=== PATIENT | female | born 1960 | race African-American/Black ===

== ENCOUNTER 2022-11-10 12:58 | Outpatient (OUT) | payer OTHER, SELFPAY ==
--- NOTE | 2022-11-10 13:22 | MM_ITS ---
Patient: ISABELA JACINTO Exam Date: 11/10/2022 : 1960 Gender:F Ordering : DR Fred Oliveira D.O. Admission #: [id number] Family : Order #: [id number] CLICK HERE TO VIEW EXAM RADIOLOGY REPORT PROCEDURE: MM TOMOSYNTHESIS SCREENING BI COMPARISON: MG MAMM SCREEN 3D CORY CAD, 10/25/2021. MG MAMM LT DIAG FU, 11/01/2021. INDICATIONS: Screening mammogram Z12.31 Calculator Name NCI Breast Cancer Risk Assessment Tool 5 Year Breast Cancer Risk 1.10% Lifetime Breast Cancer Risk 5.30% Personal Breast Cancer No Personal Ovarian Cancer No Treatments None Family Cancers Father with colon cancer at age ~71. LOCATION: [facility] BREAST COMPOSITION: Extremely dense, which lowers the sensitivity of mammography. FINDINGS: DIAGNOSTIC CATEGORY 2--BENIGN FINDING. NO CHANGE FROM COMPARISON. Scattered benign-appearing calcifications are present. Scattered benign-appearing lymph nodes are present. RIGHT BREAST: No significant suspicious finding. LEFT BREAST: No significant suspicious finding. RECOMMENDATIONS: ROUTINE MAMMOGRAM AND CLINICAL EVALUATION IN 12 MONTHS. PLEASE NOTE: A NORMAL MAMMOGRAM DOES NOT EXCLUDE THE POSSIBILITY OF BREAST CANCER. A CLINICALLY SUSPICIOUS PALPABLE LUMP SHOULD BE BIOPSIED. Dictated by: Dayron Segura MD on 11/11/2022 at 07:20 Approved by: Dayron Segura MD on 11/11/2022 at 07:22
== END 2022-11-10 12:59 | disposition home or self-care (01) ==
PROVIDERS: PCP Internal Medicine; Visit Provider Internal Medicine
DX: Z12.31 Encounter for screening mammogram for malignant neoplasm of breast (principal); Z80.0 Family history of malignant neoplasm of digestive organs
CPT/HCPCS: 77063; 77067

== ENCOUNTER 2023-02-06 12:56 | Outpatient (OUT) | payer OTHER, SELFPAY ==
--- NOTE | 2023-02-06 12:59 | CA_ITS ---
[facility] Test Date: 2023-02-16 Pat Name: ISABELA JACINTO Department: Room: - Gender: Female Mds Manager: : 1960 Requested By: [id number] Order Number: [id number] Reading MD: SAURAV BURNETTE Interpretive Statements Predominant rhythm is sinus w/ average rate of 84 bpm Tachycardia - max rate of 181 bpm - 38 episodes of PSVT w/ longest duration of 371 beats - longest episode of 23min 59sec with rates of 118-133 bpm Bradycardia - min rate of 53 bpm - longest episode of 1min 6sec with rates 56-59 bpm VEntricular ectopy - 50 total (<1%) - 33 PVC - 3 bigeminy - 2 couplets NSVT - 1 episode of 8 beat duration Patient triggered events: 2 - associated with NSR Impression: Predominant rhythm is sinus w/ average rate of 84 bpm Fastest rate of 188 bpm and slowest rate of 53 bpm 33 PVC, 3 bigeminy, 2 couplets 1 NSVT of 8 beat duration No blocks or pauses No atrial fibrillation/flutter Electronically Signed On 02-17-2023 7:24:22 EDT by SAURAV BURNETTE
== END 2023-02-06 12:57 | disposition home or self-care (01) ==
LOC: CARD 12:57
PROVIDERS: PCP Internal Medicine; Visit Provider Nurse Practitioner Family
DX: R00.2 Palpitations (principal); R42 Dizziness and giddiness; Z86.79 Personal history of other diseases of the circulatory system
CPT/HCPCS: 93242

== ENCOUNTER 2023-04-04 13:02 | Outpatient (OUT) | payer OTHER, SELFPAY ==
--- NOTE | 2023-04-04 14:11 | CA_ITS ---
Patient Name: ISABELA JACINTO MR#: [id number] : 1960 Exam Date: 04/04/2023 Ordering Doctor: JEREMIAS MARTINEZ ECHOCARDIOGRAM REPORT PROCEDURE: CA ECHO DOPPLER COMPLETE INDICATIONS: Paroxysmal atrial fibrillation, Palpitations COMPARISON: None. DESCRIPTION: COMPLETE ECHOCARDIOGRAM Real-time transthoracic echocardiography with 2D, M-mode, spectral and color flow Doppler performed. QUALITY: Technical quality was good. LEFT VENTRICLE: Normal chamber size. Thickened septal wall. Global left ventricular systolic function is normal. LV EF: Calculated left ventricular ejection fraction is 62%. DIASTOLIC: Normal diastolic function. ATRIAL SEPTUM: LEFT ATRIUM: Normal chamber size. RIGHT ATRIUM: Mild dilatation. RIGHT VENTRICLE: Normal chamber size. Normal right ventricular systolic function. TRICUSPID VALVE: Normal mobility and thickness. No stenosis with mild regurgitation. No evidence of pulmonary hypertension. RVSP 34 mmHg MITRAL VALVE: Normal mobility and thickness. No evidence of mitral valve stenosis. Trivial mitral regurgitation. AORTIC VALVE: Normal trileaflet appearance. Mildly calcified aortic valve. Normal leaflet mobility. No evidence of aortic valve stenosis. No aortic regurgitation. AORTIC ROOT: Normal diameter and appearance. PULMONIC VALVE: Normal thickness and mobility. No stenosis. Trivial regurgitation. PERICARDIUM: Trivial pericardial effusion. IVC: Collapses with inspirations. Normal Size. PLEURA: CONCLUSION: 1. Normal left ventricular systolic function. Estimated LVEF is 60 to 65%. 2. Normal right ventricular size and systolic function. 3. Normal diastolic function. 4. No significant valvular dysfunction. 5. Normal right-sided pressures. 6. Trivial pericardial effusion. Adult Echocardiography Procedure Report Left Ventricle LVEDD (3.7 - 5.6 cm): 3.45 cm LVESD (2.2 - 4.0 cm): 2.24 cm LVIVS thickness (0.6 - 1.2 cm): 1.38 cm LVPW thickness (0.5 - 1.0 cm): 1.09 cm e': 0.09 m/s E - e': 7.20 LVOT Max Gradient: 3.10 mm[Hg] LVOT Area (cm2): 0.88 m/s Peak Velocity (LVOT): 0.88 m/s Mean Velocity (LVOT): 0.57 m/s LVOT Diameter 1.72 cm Left Ventricular Ejection Fraction: 61.89 % Left Atrium LA Volume Index (2D A2C): 33.80 ml/m2 Left Atrium Systolic Dimension: 3.32 cm Mitral Valve MV E to A Ratio: 0.97, 0.97 Mitral Valve A-Wave Peak Velocity: 0.66 m/s Mitral Valve E-Wave Peak Velocity: 0.64 m/s Right Ventricle RV Internal Diastolic Dimension: 3.26 cm Aorta AO Root Diam: 2.30 cm Ascending Ao Diam: 2.67 cm Aortic Valve AoV Area (Peak Alberto): 1.57 cm2, 1.67 cm2 AoV Area (VTI): 1.48 cm2, 1.52 cm2 Peak Velocity(Antegrade Flow): 1.23 m/s, 1.37 m/s Peak Gradient(Antegrade Flow): 6.00 mm[Hg], 7.51 mm[Hg] Mean Velocity(Antegrade Flow): 0.87 m/s, 0.94 m/s Mean Gradient(Antegrade Flow): 3.44 mm[Hg], 3.97 mm[Hg] Velocity Time Integral: 27.24 cm, 28.78 cm Tricuspid Valve Peak Velocity (Regurgitant Flow): 2.08 m/s, 2.36 m/s, 2.80 m/s Pulmonic Valve Mean Gradient: 2.39 mm[Hg], 2.80 mm[Hg], 2.17 mm[Hg] Mean Velocity: 0.71 m/s, 0.80 m/s, 0.68 m/s Peak Velocity: 1.15 m/s Peak Gradient: 5.06 mm[Hg], 5.59 mm[Hg], 5.32 mm[Hg] Right Atrium Right Atrium Systolic Pressure: 41.26 ml, 41.26 ml Dictated by: Marcus Winter M.D. on 04/04/2023 at 16:14 Approved by: Marcus Winter M.D. on 04/04/2023 at 16:18
== END 2023-04-04 13:03 | disposition home or self-care (01) ==
LOC: CARD 13:02
PROVIDERS: PCP Internal Medicine; Visit Provider Nurse Practitioner
DX: M34.81 Systemic sclerosis with lung involvement (principal); I48.0 Paroxysmal atrial fibrillation
CPT/HCPCS: 71046; 93306

== ENCOUNTER 2023-04-04 14:01 | Outpatient (OUT) | payer OTHER, SELFPAY ==
--- NOTE | 2023-04-04 14:11 | XR_ITS ---
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 Slight prominence of interstitial markings are seen diffusely throughout the lungs, with more prominent interstitial changes seen at the lung bases. All of these findings remain unchanged and presumably chronic in nature. A new infiltrate, effusion or pneumothorax is not identified. The osseous structures are grossly intact. XR/XR chest 2V IMPRESSION: There is no clear evidence of an acute infiltrate or cardiac decompensation. Some chronic changes are present, particularly at the lung bases. The overall appearance of the chest has not changed significantly. Electronically authenticated by: ALLIE TRAN Date: 04/04/2023 14:29
== END 2023-04-04 14:02 | disposition home or self-care (01) ==
LOC: RAD 14:04
PROVIDERS: PCP Internal Medicine; Visit Provider Internal Medicine
DX: M34.81 Systemic sclerosis with lung involvement (principal)
CPT/HCPCS: 71046

== ENCOUNTER 2023-05-06 09:33 | Outpatient (OUT) | payer OTHER, SELFPAY ==
[2023-05-06 09:43] LABS: Basophils Absolute Auto 0.1 10^3/uL (0.0-0.1); Basophils Percent Auto 0.9 % (0.2-2.0); Eosinophils Absolute Auto 0.1 10^3/uL (0.0-0.7); Eosinophils Percent Auto 1.4 % (0.9-7.0); Hematocrit 36.8 % (36.0-48.0); Hemoglobin 11.3 g/dL (12.0-16.0); Immature Granulocytes Abs Auto 0.01 10^3/uL (0.00-0.03); Immature Granulocytes Pct Auto 0.2 % (0.0-0.5); Lymphocytes Absolute Auto 1.9 10^3/uL (1.2-3.8); Lymphocytes Percent Auto 32.9 % (20.5-60.0); Mean Corpuscular HGB Conc 30.7 g/dL (29.9-35.2); Mean Corpuscular Hemoglobin 26.4 pg (26.7-34.0); Mean Platelet Volume 9.9 fL (9.5-13.5); Monocytes Absolute Auto 0.6 10^3/uL (0.3-0.8); Monocytes Percent Auto 11.1 % (1.7-12.0); Neutrophils Absolute Auto 3.1 10^3/uL (1.4-6.5); Neutrophils Percent Auto 53.5 % (43.0-75.0); Platelet Count 193 10^3/uL (150-450); Red Blood Count 4.28 10^6/uL (4.20-5.40); Red Cell Distribution Width 13.9 % (11.0-15.0); White Blood Count 5.8 10^3/uL (4.0-11.0)
[2023-05-06 10:04] LABS: Estimated Average Glucose 126 mg/dL
[2023-05-06 10:08] LABS: Alanine Aminotransferase 19 U/L (14-59); Albumin Globulin Ratio 0.9; Albumin Level 3.9 g/dL (3.4-5.0); Alkaline Phosphatase 82 U/L (46-116); Anion Gap 13.2; Aspartate Amino Transferase 16 U/L (15-37); BUN Creatinine Ratio 14.4; Bilirubin Total 0.4 mg/dL (0.2-1.0); Calcium 9.4 mg/dL (8.5-10.1); Carbon Dioxide 30.7 mmol/L (21.0-32.0); Chloride 101 mmol/L (98-107); Chol HDL Ratio 2.4; Cholesterol 221 mg/dL (<=200); Estimated GFR (African America >60 (>=60); Estimated GFR (Non-African Ame 58 (>=60); Globulin 4.4 g/dL; Glucose 88 mg/dL (74-106); HDL Cholesterol 92 mg/dL (40-60); Potassium 4.9 mmol/L (3.5-5.1); Sodium 140 mmol/L (136-145); Thyroid Stimulating Hormone 2.081 uIU/mL (0.358-3.740); Total Protein 8.3 g/dL (6.4-8.2); Triglycerides 41 mg/dL (<=150); VLDL CHOLESTEROL 8.2 mg/dL
== END 2023-05-06 09:34 | disposition home or self-care (01) ==
LOC: LAB 09:33
PROVIDERS: PCP Internal Medicine; Visit Provider Internal Medicine
DX: Z00.00 Encounter for general adult medical examination without abnormal findings (principal)
CPT/HCPCS: 36415; 80053; 80061; 83036; 84443; 85025

== ENCOUNTER 2023-08-14 14:04 | Outpatient (OUT) | payer OTHER, SELFPAY ==
--- NOTE | 2023-08-14 14:35 | CT_ITS ---
The [address] [address] Patient Name: ISABELA JACINTO MRN: [id number] date: 1960 Sex: F Assigned Patient Location: CT Current Patient Location: CT Accession/Order Number: [id number] Exam Date: 08/14/2023 14:32 Report Date: 08/14/2023 14:51 At the request of: SAURAV BURNETTE Procedure: CT head/brain wo con CT head/brain wo con, 08/14/2023 2:32 PM EDT INDICATION: history Of Spontaneous Subarachnoid Intracranial Hemorrhage COMPARISON: Prior CT of the head dated 05/25/2019 TECHNIQUE: Axial CT images of the brain from skull base to vertex, including portions of the face and sinuses, were obtained without contrast . Multiplanar reformatted images were generated and reviewed as needed. Dose reduction techniques were achieved by using automated exposure control and/or adjustment of mA and/or kV according to patient size and/or use of iterative reconstruction technique. FINDINGS: The cerebral sulci as well as ventricular system are appropriate for age. There is status post left frontotemporal craniotomy. Left temporal encephalomalacia is noted. Left distal internal carotid aneurysmal clip is noted causing streak artifact artifact. There is no intracranial mass, mass effect, midline shift, intra or extra-axial fluid collection or hemorrhage. Periventricular and centrum semiovale hypodensities are most likely consistent with microvascular ischemic changes. The visualized portions of orbits, mastoid air cells as well as paranasal sinuses are unremarkable. There is no suspicious osteolytic or osteoblastic lesion. CT/CT head/brain wo con IMPRESSION: No acute intracranial process is noted. No intracranial hemorrhage is noted. Electronically authenticated by: JESS PLASCENCIA Date: 08/14/2023 14:51
== END 2023-08-14 14:05 | disposition home or self-care (01) ==
LOC: CT 14:04
PROVIDERS: PCP Internal Medicine; Visit Provider Internal Medicine
DX: Z86.79 Personal history of other diseases of the circulatory system (principal); R51.9 Headache, unspecified
CPT/HCPCS: 70450

== ENCOUNTER 2023-09-11 13:45 | Outpatient (OUT) | payer OTHER, SELFPAY ==
[2023-09-11 14:20] LABS: Bilirubin Urine NEGATIVE (NEGATIVE); Blood Urine NEGATIVE (NEGATIVE); Clarity Urine CLEAR (CLEAR); Color Urine LT. YELLOW (YELLOW); Glucose Urine UA NEGATIVE (NEGATIVE); Ketones Urine NEGATIVE (NEGATIVE); Leukocyte Esterase Urine MODERATE (NEGATIVE); Nitrite Urine NEGATIVE (NEGATIVE); Protein Urine NEGATIVE (NEG/TRACE); Specific Gravity Urine 1.015 (1.005-1.025); Urobilinogen Urine 0.2 EU/dL (0.2-1.0)
[2023-09-11 14:38] LABS: Basophils Percent Auto 0.6 % (0.2-2.0); Eosinophils Absolute Auto 0.1 10^3/uL (0.0-0.7); Eosinophils Percent Auto 0.8 % (0.9-7.0); Hematocrit 34.3 % (36.0-48.0); Hemoglobin 10.7 g/dL (12.0-16.0); Immature Granulocytes Abs Auto 0.02 10^3/uL (0.00-0.03); Immature Granulocytes Pct Auto 0.3 % (0.0-0.5); Lymphocytes Percent Auto 30.8 % (20.5-60.0); Mean Corpuscular HGB Conc 31.2 g/dL (29.9-35.2); Mean Corpuscular Hemoglobin 26.4 pg (26.7-34.0); Mean Corpuscular Volume 84.7 fL (81.0-99.0); Monocytes Absolute Auto 0.6 10^3/uL (0.3-0.8); Monocytes Percent Auto 8.9 % (1.7-12.0); Neutrophils Absolute Auto 3.8 10^3/uL (1.4-6.5); Neutrophils Percent Auto 58.6 % (43.0-75.0); Platelet Count 204 10^3/uL (150-450); Red Blood Count 4.05 10^6/uL (4.20-5.40); Red Cell Distribution Width 13.9 % (11.0-15.0); White Blood Count 6.6 10^3/uL (4.0-11.0)
[2023-09-11 14:45] LABS: Erythrocyte Sedimentation Rate 63 mm/hr (<=30)
[2023-09-11 14:51] LABS: Alanine Aminotransferase 20 U/L (14-59); Albumin Level 3.9 g/dL (3.4-5.0); Alkaline Phosphatase 93 U/L (46-116); Aspartate Amino Transferase 14 U/L (15-37); Bilirubin Total 0.2 mg/dL (0.2-1.0); C Reactive Protein <0.50 mg/dL (<=0.50); Estimated GFR (African America >60 (>=60); Estimated GFR (Non-African Ame >60 (>=60)
[2023-09-11 15:10] LABS: Bacteria Urine MODERATE #/HPF (NONE SEEN); Mucus Urine NONE SEEN (NONE SEEN); RBC Urine NONE SEEN #/HPF (0-2); Squamous Epithelial Cell Urine MODERATE #/LPF (NONE/RARE)
[2023-09-12 07:09] LABS: Complement C3, Serum 118 mg/dL (82-167); Complement C4, Serum 23 mg/dL (12-38)
== END 2023-09-11 13:46 | disposition home or self-care (01) ==
LOC: LAB 13:47
PROVIDERS: PCP Internal Medicine; Visit Provider Internal Medicine Rheumatology
DX: M35.9 Systemic involvement of connective tissue, unspecified (principal)
CPT/HCPCS: 36415; 81001; 82042; 82247; 82565; 84075; 84450; 84460; 85025; 85652; 86140; 86160

== ENCOUNTER 2023-11-27 13:04 | Outpatient (OUT) | payer OTHER, SELFPAY ==
--- NOTE | 2023-11-27 13:07 | MM_ITS ---
Patient Name: ISABELA JACINTO MR#: [id number] : 1960 Exam Date: 11/27/2023 Ordering Doctor: DR Fred Oliveira D.O. RADIOLOGY REPORT PROCEDURE: MM TOMOSYNTHESIS SCREENING BI COMPARISON: MM TOMOSYNTHESIS SCREENING BI, 11/10/2022. MG MAMM LT DIAG FU, 11/01/2021. INDICATIONS: Screening Calculator Name NCI Breast Cancer Risk Assessment Tool 5 Year Breast Cancer Risk 1.10% Lifetime Breast Cancer Risk 5.20% Personal Breast Cancer No Personal Ovarian Cancer No Treatments None Family Cancers Father with colon cancer at age ~71. LOCATION: [facility] BREAST COMPOSITION: The breasts are extremely dense, which lowers the sensitivity of mammography. FINDINGS: DIAGNOSTIC CATEGORY 2--BENIGN FINDING. NO CHANGE FROM COMPARISON. Scattered benign-appearing calcifications are present. Scattered benign-appearing lymph nodes are present. RIGHT BREAST: No significant suspicious finding. LEFT BREAST: No significant suspicious finding. RECOMMENDATIONS: ROUTINE MAMMOGRAM AND CLINICAL EVALUATION IN 12 MONTHS. PLEASE NOTE: A NORMAL MAMMOGRAM DOES NOT EXCLUDE THE POSSIBILITY OF BREAST CANCER. A CLINICALLY SUSPICIOUS PALPABLE LUMP SHOULD BE BIOPSIED. Dictated by: Dayron Segura MD on 11/27/2023 at 15:13 Approved by: Dayron Segura MD on 11/27/2023 at 15:14
== END 2023-11-27 13:05 | disposition home or self-care (01) ==
LOC: MAMMO 13:04
PROVIDERS: PCP Internal Medicine; Visit Provider Internal Medicine
DX: Z12.31 Encounter for screening mammogram for malignant neoplasm of breast (principal); Z80.0 Family history of malignant neoplasm of digestive organs
CPT/HCPCS: 77063; 77067

== ENCOUNTER 2023-12-20 06:44 | Outpatient (OUT) | payer OTHER, SELFPAY ==
--- OUTSIDE RECORDS SUMMARY | 2023-12-20 06:47 | XMS_ITS | CCD ---
Author Organization [facility] Care Team Providers Care Category Planner Name Role Phone PHYSICIAN, DEFAULT Unavailable Unavailable PHYSICIAN, DEFAULT Unavailable Unavailable Fred Oliveira DO Primary Care Provider Nikita Cain Unavailable Fred Oliveira DO Primary Care Provider Nikita Cain Unavailable Fred Oliveira Unavailable VASILE, DR MG Admitting Unavailable BALL, DR MG Attending Unavailable BALL, DR MG Primary Care Unavailable BALL, DR MG Consulting Unavailable BALL, DR MG Admitting Unavailable BALL, DR MG Attending Unavailable BALL, DR MG Primary Care Unavailable BALL, DR MG Consulting Unavailable TAYLOR, DR CARRINGTON Eldridge Consulting Unavailable BALL, DR MG Admitting Unavailable BALL, DR MG Attending Unavailable BALL, DR MG Primary Care Unavailable BALL, DR MG Consulting Unavailable BALL, DR MG Admitting Unavailable BALL, DR MG Attending Unavailable BALL, DR MG Primary Care Unavailable BALL, DR MG Consulting Unavailable ZIEBER, DR KD San Consulting Unavailable ОЛЬГА, DR COBB Consulting Unavailable Keara Dunham Unavailable Fred Oliveira DO Primary Care Provider Nikita Cain Unavailable Fred Oliveira DO Primary Care Provider KELL ANN Attending Unavailable KELL ANN Attending Unavailable JEREMIAS MARTINEZ Attending Unavailable KELL ANN Attending Unavailable Allergies Allergy Classification Reported Allergen(s) Allergy Type Date of Onset Reaction(s) Facility (6 sources) Amoxicillin Drug Allergy 02-03-20 17 Other: See Comments [facility] (6 sources) Iodine Drug Allergy 10-09-19 13 Unknown [facility] (6 sources) Sulfonamides (Antibiotic) Drug Allergy 03-01-20 13 Unknown [facility] (18 sources) Penicillins (Antibiotic) Propensity to adverse reactions Unknown [facility] Other (18 sources) sulfADIAZINE Drug Allergy Unknown [facility] Other (18 sources) Radiology DYE Propensity to adverse reactions Unknown [facility] Other (1 source) Amoxicillin Drug Allergy 02-20-20 13 [facility] (1 source) Iodine (And Iodine Containting Drugs) Drug allergy (disorder) 10-09-19 13 [facility] (1 source) Sulfonamides (Antibiotic) Drug allergy (disorder) 03-01-20 13 [facility] (12 sources) Penicillin G Benzathine & Proc Drug allergy Unknown [facility] Other (5 sources) patient allergy list reviewed by nurse or physicia Propensity to adverse reactions 01-18-20 Comment:Done [facility] Other (12 sources) [employer] *MEDICAL DEVICES AND SUPP Propensity to adverse reactions Comment:IVP DYE [employer] [facility] [employer] Other Medications Current Medications Medication Drug Class(es) Dates Sig (Normalized) Sig (Original) [id number] 200 actuat albuterol 0.09 mg/actuat metered dose inhaler (13 sources) beta2-Adrenergic Agonist Start: 03-31-2023 take 2 puff(s) by inhalation every six hours as needed for cough Albuterol Sulfate HFA 108 (90 Base) MCG/ACT 2 puffs Inhalation every 6 hours as needed for cough and SOB for 30 days Mar, Active Start: 03-31-2023 take 2 puff(s) by in halation every six hours as needed for cough Albuterol Sulfate HFA 108 (90 Base) MCG/ACT 2 puffs Inhalation every 6 hours as needed for cough and SOB for 30 days Mar, Not-Taking/PRN Start: 06-14-2013 take 2 puff(s) by in halation every four hours as needed Proventil HFA 108 (90 Base) MCG/ACT 2 puffs as needed Inhalation every 4 hrs May, Not-Taking amLODIPine 5 mg oral tablet (20 sources) Dihydropyridine Calcium Channel Alison Start: 02-20-2019 take 2 tablets by mouth once daily amLODIPine (NORVASC) 5 mg tablet Take 2 tablets by mouth once daily. 60 tablet 5 02/20/2019 Active take 1 tablet by mouth once kenji y amLODIPine Besylate 5 MG TAKE 1 TABLET BY MOUTH DAILY Active take 1 tablet by mouth once kenji y amLODIPine Besylate 2.5 MG TAKE 1 TABLET BY MOUTH DAILY for 30 Active Comment on above: Take 2 tablets by mo uth once daily. fluticasone propionate 0.05 mg/actuat metered dose nasal spray (15 sources) Corticosteroid take 1 spray(s) nasal route once daily Fluticasone Propionate 50 MCG/ACT 1 spray in each nostril Nasally Once a day Active hydroCHLOROthiazide 25 mg oral tablet (6 sources) Thiazide Diuretic take 1 tablet by mouth once daily hydroCHLOROthiazide (HYDRODIURIL, ESIDRIX) 25 mg tablet Take 25 mg by mouth once daily. 0 Active Comment on above: Take 25 mg by mouth once daily. hydroxychloroquine sulfate 200 mg oral tablet (12 sources) Antimalarial, Antirheumatic Agent Start : 05-31 take 1 tablet by mouth once daily hydroxychloroquine (PLAQUENIL) 200 mg tablet Take 1 tablet by mouth once daily. 4 05/31/2017 Active Comment on above: Take 1 tablet by kelby th once daily. lisinopril 20 mg oral tablet (20 sources) Angiotensin Converting Enzyme Inhibitor Start : 03-24 take 1 tablet by mouth once daily lisinopril (ZESTRIL, PRINIVIL) 20 mg tablet Take 20 mg by mouth once daily. 0 03/24/2021 Active Start: 07-17-2019 take 1 tablet by kelby th once daily lisinopril (ZESTRIL, PRINIVIL) 10 mg tablet Take 1 tablet by mouth once daily. 0 07/17/2019 Active Lisinopril 40 MG TAKE 1 TABLET BY MOUTH DAILY Orally Once a day Active Comment on above: Take 1 tablet by kelby th once daily. Take 20 mg by mouth once daily. mycophenolate mofetil 500 mg oral tablet (20 sources) Start: 3 End: 4 take 2 tablets by mouth once daily mycophenolate Mofetil (CELLCEPT) 500 mg tablet Take 2 tablets by mouth once daily. 60 tablet 5 09/22/2023 Active Start: 05-06-2021 End: 12-27-2021 take 2 tablets by mouth once daily mycophenolate Mofetil (CELLCEPT) 500 mg tablet Take 2 tablets by mouth once daily. 60 tablet 5 12/27/2021 Active take 1 tablet by kelby every twelve hours CellCept 500 MG 1 tablet Orally Twice a day Active Comment on above: Take 2 tablets by mo [facility] once daily. take 2 tablets by mo [facility] every day 24 hr NIFEdipine 60 mg extended release oral tablet (6 sources) Dihydropyridine Calcium Channel Alison Start: 020 take 1 tablet by mouth once daily NIFEdipine XL (ADALAT CC, PROCARDIA XL) 60 mg 24 hr tablet Take 1 tablet by mouth once daily. 0 06/26/2019 Active Comment on above: Take 1 tablet by kelby once daily. nitrofurantoin, macrocrystals 25 mg / nitrofurantoin, monohydrate 75 mg oral capsule (4 sources) Nitrofuran Antibacterial Start: 023 take 1 capsule by mouth every twelve hours Nitrofurantoin Monohyd Macro 100 MG 1 capsule with food Orally every 12 hrs for 5 days Aug, Active ondansetron 4 mg disintegrating oral tablet (5 sources) Serotonin-3 Receptor Antagonist Start: 023 take 1 tablet by mouth every six hours as needed for nausea Ondansetron 4 MG 1 tablet on the tongue and allow to dissolve Orally every 6 hours as needed for nausea for 3 days Aug, Active polysaccharide iron complex 150 mg oral capsule (20 sources) Start: 017 take 3 capsules by mouth once daily FERREX 150 150 mg iron capsule TK 1 C PO QD 3 11/27/2016 Active take 1 capsule by [facility] every other day Polysaccharide Iron Complex 150 MG TAKE 1 CAPSULE BY MOUTH EVERY OTHER DAY for 30 Active Comment on above: TK 1 C PO QD sulfamethoxazole 800 mg / trimethoprim 160 mg oral tablet (6 sources) Dihydrofolate Reductase Inhibitor Antibacterial, Sulfonamide Antimicrobial Sulfamethoxazo le-Trim ethoprim 800-160 MG 1 tablet Orally MWF Active Completed/Discontinued Medications Medication Drug Class(es) Dates Sig (Normalized) Sig (Original) AeroChamber Mini Chamber - (7 sources) Start: 03-31-2023 AeroChamber Mini Chamber - Use with inhaler inhale every 6 hours as needed for 30 days Mar, Not-Taking/PRN Start: 03-31-2023 AeroChamber Mi ni Chamber - Use with inhaler inhale every 6 hours as needed for 30 days Mar, Active benzonatate 100 mg oral capsule (13 sources) Non-narcotic Antitussive Start: 03-31-2023 take 1 capsule by mouth three times daily as needed for cough Benzonatate 100 MG 1 capsule as needed Orally Three times a day as needed for cough for 10 days Mar, Not-Taking/PRN take 1 capsule by mo ut every eight hours Benzonatate 200 MG 1 capsule as needed Orally Three times a day Not-Taking doxycycline hyclate 100 mg oral capsule (13 sources) Tetracycline-class Drug Start: 03-31-2023 take 1 capsule by mouth every twelve hours Doxycycline Hyclate 100 MG 1 capsule Orally Twice a day for 7 days Mar, Not-Taking/PRN Start: 06-03-2022 take 1 capsule by mo [facility] twice daily Doxycycline Hyclate 100 MG 1 capsule Orally twice daily for 7 days May, Active methIMAzole 5 mg oral tablet (18 sources) Thyroid Hormone Synthesis Inhibitor take 1 tablet by mouth every twenty-four hours methIMAzole 5 MG 1 tablet Orally Once a day for 30 day(s) Not-Taking/PRN raNITIdine 300 mg oral tablet (6 sources) Histamine-2 Receptor Antagonist Start: 2013 take 1 tablet by mouth once daily Zantac 300 MG 1 tablet Orally daily May, Not-Taking spironolactone 100 mg oral tablet (18 sources) Aldosterone Antagonist Spironolactone 100 MG as directed Orally Not-Taking/PRN temazepam 15 mg oral capsule (18 sources) Benzodiazepine take 1 capsule by mouth every twenty-four hours Temazepam 15 MG 1 capsule at bedtime as needed Orally Once a day Not-Taking/PRN Problems Active Problems Problem Classification Problem Date Documented Date Episodic/Chronic Acute bronchitis (2 sources) Acute bronchitis due to other specified organisms Episodic Acute cerebrovascular disease (20 sources) Subarachnoid hemorrhage due to ruptured aneurysm; Translations: [Other nontraumatic subarachnoid hemorrhage] Onset: 2 Chronic Anxiety disorders (20 sources) Generalized anxiety disorder; Translations: [Generalized anxiety disorder] Chronic Cardiac dysrhythmias (20 sources) Paroxysmal atrial fibrillation; Translations: [Paroxysmal atrial fibrillation] Onset: 3 Chronic Deficiency and other anemia (18 sources) Anemia of chronic disease; Translations: [Anemia in other chronic diseases classified elsewhere] Chronic Deficiency and other anemia (20 sources) Anemia; Translations: [Anemia, unspecified] Episodic Deficiency and other anemia (1 source) Anemia, unspecified; Translations: [Anemia] Episodic Diabetes mellitus without complication (20 sources) Impaired fasting glycemia; Translations: [Impaired fasting glucose] Episodic E Codes: Adverse effects of medical drugs (20 sources) Adverse effect of antineoplastic and immunosuppressive drugs, initial encounter; Translations: [Adverse effect of other viral vaccines, initial encounter] Onset: 8 Episodic Essential hypertension (20 sources) Essential hypertension; Translations: [Essential (primary) hypertension] Onset: 5 Chronic Genitourinary symptoms and ill-defined conditions (5 sources) Dysuria; Translations: [DYSURIA] Onset: 3 Episodic Headache; including migraine (18 sources) Tension-type headache; Translations: [Tension-type headache, unspecified, not intractable] Chronic Immunity disorders (20 sources) Immunosuppression; Translations: [Immunodeficiency, unspecified] Chronic Mood disorders (12 sources) Dysthymia; Translations: [Dysthymic disorder] Onset: 5 Chronic Nutritional deficiencies (13 sources) Vitamin D deficiency; Translations: [Vitamin D deficiency, unspecified] Chronic Other aftercare (1 source) Other local intermodal truck driver (current) drug therapy Episodic Other and ill-defined cerebrovascular disease (20 sources) Nonruptured cerebral aneurysm; Translations: [Cerebral aneurysm, nonruptured] Chronic Other circulatory disease (20 sources) Raynaud's disease; Translations: [Raynaud's syndrome without gangrene] Chronic Other circulatory disease (18 sources) Raynaud's phenomenon; Translations: [Raynaud's syndrome without gangrene] Chronic Other circulatory disease (2 sources) Raynaud's syndrome without gangrene; Translations: [Raynaud's syndrome without gangrene] Chronic Other hereditary and degenerative nervous system conditions (12 sources) Mild cognitive disorder ; Translations: [Mild cognitive impairment, so stated] Onset: 4 Chronic Other lower respiratory disease (20 sources) Interstitial lung disease; Translations: [Interstitial pulmonary disease, unspecified] Onset: 8 05-04-2020 Chronic Other lower respiratory disease (11 sources) Post-inflammatory pulmonary fibrosis; Translations: [Other specified interstitial pulmonary diseases] Chronic Other lower respiratory disease (11 sources) Parietoalveolar pneumopathy; Translations: [Interstitial pulmonary disease, unspecified] Chronic Other lower respiratory disease (1 source) Other specified interstitial pulmonary diseases; Translations: [Other specified interstitial pulmonary diseases] Chronic Other lower respiratory disease (1 source) Interstitial pulmonary disease, unspecified; Translations: [Interstitial pulmonary disease, unspecified] Chronic Other lower respiratory disease (20 sources) Cough; Translations: [Cough] Episodic Other lower respiratory disease (12 sources) Solitary nodule of lung; Translations: [Solitary pulmonary nodule] Episodic Other lower respiratory disease (1 source) Solitary pulmonary nodule Episodic Other nervous system disorders (20 sources) Bilateral carpal tunnel syndrome; Translations: [Carpal tunnel syndrome, bilateral upper limbs] Chronic Other nervous system disorders (20 sources) Carpal tunnel syndrome; Translations: [Carpal tunnel syndrome, left upper limb] Onset: 4 Chronic Other nervous system disorders (2 sources) Carpal tunnel syndrome, bilateral upper limbs; Translations: [Bilateral carpal tunnel syndrome] Chronic Other nervous system disorders (1 source) Carpal tunnel syndrome, unspecified upper limb; Translations: [Carpal tunnel syndrome, unspecified upper limb] Chronic Other non-traumatic joint disorders (11 sources) Arthropathy of joint of hand; Translations: [Unspecified arthropathy, hand] Onset: 7 Chronic Other non-traumatic joint disorders (1 source) Arthropathy; Translations: [Unspecified arthropathy, hand] Onset: 7 Chronic Other screening for suspected conditions (not mental disorders or infectious disease) (20 sources) Mammography abnormal; Translations: [Other abnormal and inconclusive findings on diagnostic imaging of breast] Onset: 2 Episodic Other skin disorders (18 sources) Female hirsutism; Translations: [Hirsutism] Episodic Other skin disorders (11 sources) Hirsutism; Translations: [Hirsutism] Episodic Other skin disorders (1 source) Hirsutism; Translations: [Hirsutism] Episodic Other upper respiratory disease (18 sources) Nasal congestion; Translations: [Nasal congestion] Episodic Other upper respiratory disease (18 sources) Disorder of face; Translations: [Other specified disorders of nose and nasal sinuses] Episodic Other upper respiratory infections (12 sources) Acute maxillary sinusitis; Translations: [Acute maxillary sinusitis, unspecified] Episodic Rheumatoid arthritis and related disease (12 sources) Inflammatory polyarthropathy; Translations: [Inflammatory polyarthropathy] Onset: 7 Chronic Systemic lupus erythematosus and connective tissue disorders (20 sources) Systemic sclerosis; Translations: [Systemic sclerosis, unspecified] Onset: 7 02-20-2017 Chronic Thyroid disorders (20 sources) Hyperthyroidism; Translations: [Thyrotoxicosis, unspecified without thyrotoxic crisis or storm] Onset: 4 Resolved: 0 Chronic Unclassified (1 source) Cough, unspecified; Translations: [Cough, unspecified] Past or Other Problems Problem Classification Problem Date Documented Da te Episodic/Chronic Abdominal pain (20 sources) Right lower quadrant pain; Translations: [Right lower quadrant pain] Onset: 8 Episodic Cardiac dysrhythmias (2 sources) Palpitations; Translations: [Palpitations] Onset: 3 Episodic Gastrointestinal hemorrhage (12 sources) Hemorrhage of rectum and anus; Translations: [Hemorrhage of anus and rectum] Resolved: 2 Episodic Immunizations and screening for infectious disease (20 sources) LUNCH TRUCK OPERATOR antibody positive; Translations: [Other specified abnormal immunological findings in serum] Onset: 7 Resolved: 2 02-20-2017 Episodic Lymphadenitis (12 sources) Localized enlarged lymph nodes; Translations: [Localized enlarged lymph nodes] Resolved: 2 Episodic Malaise and fatigue (12 sources) Malaise and fatigue; Translations: [Other malaise and fatigue] Onset: 7 Episodic Nausea and vomiting (13 sources) Nausea; Translations: [Nausea] Onset: 7 Episodic Neoplasms of unspecified nature or uncertain behavior (12 sources) Neoplasm of uncertain behavior of skin; Translations: [Neoplasm of uncertain behavior of skin] Onset: 7 Episodic Nonmalignant breast conditions (1 source) Mammographic calcification found on diagnostic imaging of breast; Translations: [MAMMO CALCIF FOUND DX IMAG BRST] Onset: 2 Episodic Other connective tissue disease (12 sources) Muscle weakness; Translations: [Muscle weakness (generalized)] Onset: 7 Episodic Other connective tissue disease (11 sources) Tear of right rotator cuff; Translations: [Unspecified rotator cuff tear or rupture of right shoulder, not specified as traumatic] Onset: 7 Episodic Other connective tissue disease (1 source) Unspecified rotator cuff tear or rupture of right shoulder, not specified as traumatic; Translations: [Unsp rotatr-cuff tear/ruptr of right shoulder, not trauma] Onset: 7 Episodic Other diseases of bladder and urethra (11 sources) Low compliance bladder; Translations: [Other neuromuscular dysfunction of bladder] Resolved: 2 Chronic Other diseases of bladder and urethra (1 source) Other neuromuscular dysfunction of bladder; Translations: [Other neuromuscular dysfunction of bladder] Resolved: 2 Chronic Other female genital disorders (12 sources) Stricture or atresia of the vagina; Translations: [Stricture and atresia of vagina] Onset: 9 Episodic Other gastrointestinal disorders (12 sources) Flatulence, eructation and gas pain; Translations: [Abdominal distension (gaseous)] Onset: 8 Episodic Other lower respiratory disease (19 sources) Nonspecific interstitial pneumonia; Translations: [Other specified interstitial pulmonary diseases] Onset: 7 Resolved: 0 08-19-2019 Chronic Other lower respiratory disease (11 sources) Disorder of lung; Translations: [Other disorders of lung] Onset: 8 Episodic Other lower respiratory disease (1 source) Other disorders of lung; Translations: [Other disorders of lung] Onset: 8 Episodic Other non-traumatic joint disorders (6 sources) Bilateral shoulder joint pain; Translations: [Pain in right shoulder] Onset: 8 06-02-2017 Episodic Other non-traumatic joint disorders (12 sources) Arthralgia of the lower leg; Translations: [Pain in joint, lower leg] Onset: 6 Episodic Other skin disorders (12 sources) Asteatosis cutis; Translations: [Xerosis cutis] Onset: 8 Episodic Pneumonia (except that caused by tuberculosis or sexually transmitted disease) (18 sources) Pneumonia (except that caused by tuberculosis or sexually transmitted disease); Translations: [Pneumonia due to Coronavirus disease 2019] 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) Pulmonary arterial hypertension; Translations: [Secondary pulmonary arterial hypertension] Resolved: 2 Chronic Residual codes; unclassified (1 source) Family history of malignant neoplasm of digestive organs; Translations: [FAM HX MALIG NEOPLASM DIGESTIV ORGN] Onset: 2 Episodic Residual codes; unclassified (12 sources) Requires influenza virus vaccination; Translations: [Need for prophylactic vaccination and inoculation, Influenza] Onset: 7 Episodic Residual codes; unclassified (12 sources) Postoperative state; Translations: [Other postprocedural status] Onset: 5 Episodic Residual codes; unclassified (12 sources) Disorientated; Translations: [Disorientation, unspecified] Onset: 5 Episodic Spondylosis; intervertebral disc disorders; other back problems (12 sources) Low back pain; Translations: [Low back pain, unspecified] Onset: 7 Episodic Unclassified (1 source) 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 Unclassified (1 source) Pyuria Unclassified (11 sources) Vaccine product containing only acellular Bordetella pertussis and Clostridium tetani and Corynebacterium diphtheriae antigens (medicinal product); Translations: [Gdwbkeegph-kynaowu-hq rtussis, combined [DTP] [DtaP]] Onset: 4 Unclassified (1 source) Routine general medical examination at health care facility; Translations: [Routine general medical examination at health care facility] Onset: 4 Unclassified (1 source) Uoihiwsnfk-cwgplsi-cjv tussis, combined [DTP] [DtaP]; Translations: [Lfjpohimxt-raniulb-io rtussis, combined [DTP] [DtaP]] Onset: 4 Unclassified (1 source) Unspecified viral infection, in conditions classified elsewhere and of unspecified site; Translations: [Unspecified viral infection, in conditions classified elsewhere and of unspecified site] Onset: 7 Unclassified (1 source) Need for prophylactic vaccination against Streptococcus pneumoniae (pneumococcus); Translations: [Need for prophylactic vaccination against Streptococcus pneumoniae (pneumococcus)] Onset: 7 Unclassified (1 source) Health examination of defined subpopulation; Translations: [Health examination of defined subpopulation] Onset: 4 Viral infection (11 sources) Viral disease; Translations: [Unspecified viral infection, in conditions classified elsewhere and of unspecified site] Onset: 7 Episodic Viral infection (18 sources) COVID-19; Translations: [COVID-19] Results Test Name Value Interpretation Reference Range Facility Abstracton 12-13-2023 Abstract [id number] Lili Jacinto 1960 Date Provider Department Center 12/13/2023 KELL VASQUEZ [facility] L[place] Family History Problem Relation Age of Onset Heart attack Mother Atrial fibrillation Sister Stroke Sister Family Status - Relation Status Age at Mother Sister Normal [facility] Office Visiton 12-05-2023 Follow-up visit [id number] Lili Jacinto 1960 Date Provider Department Center 12/05/2023 KELL VASQUEZ [facility] Family History Problem Relation Age of Onset Heart attack Mother Atrial fibrillation Sister Stroke Sister Family Status - Relation Status Age at Mother Sister Level of Service:[id number] [place] OFFICE/OUTPATIENT ESTABLISHED LOW MDM 20 MIN Normal [facility] Telemedicineon 06-06-2023 Telemedicine [id number] Lili Jacinto 1960 Provider Department Center 06/06/2023 KELL VASQUEZ Family History Problem Relation Age of Onset Heart attack Mother Atrial fibrillation Sister Stroke Sister Family Status - Relation Status Age at Mother Sister Level of Service:[id number] [place] PHYS/QHP TELEPHONE EVALUATION 5-10 MIN Normal [facility] Office Visiton 05-09-2023 Follow-up visit [id number] Chapin 1960 F Date Provider Department Center 05/09/2023 KELL VASQUEZ Family History Problem Relation Age of Onset Heart attack Mother Atrial fibrillation Sister Stroke Sister Family Status - Relation Status Age at Mother Sister Level of Service:77068 [place] OFFICE/OUTPATIENT NEW MODERATE MDM 45 MINUTES Normal [facility] Office Visiton 03-08-2023 Follow-up visit [id number] Lili Jacinto 1960 F Date Provider Department Center 03/08/2023 JEREMIAS MURRELL [facility] Family History Problem Relation Age of Onset Heart attack Mother Atrial fibrillation Sister Stroke Sister Family Status - Relation Status Age at Mother Sister Level of Service:91300 [place] OFFICE/OUTPATIENT NEW MODERATE MDM 45-59 MINUTES Normal [facility] T3, TOTAL (TRIIODOTHYRONINE) on 09-01-2022 T3, TOTAL 85 ng/dL Normal 71-180 [facility] Comment on above: Performed By: #### T 3TOTAL #### [facility] [address] [place] [address] Dr. Karla Hull CBC AUTO DIFFon 08-31-2022 BASO # 0.0 103/ul Normal 0.0-0.1 [facility] Comment on above: Performed By: #### C BC #### [facility] [address] [place] [address] Dr. Karla Hull Basophils/100 WBC (Bld) 0.6 % Normal 0.2-2.0 [facility] [facility] Comment on above: Performed By: #### C BC #### [facility] [address] [place] [address] Dr. Karla Hull EO # 0.1 103/ul Normal 0.0-0.7 [facility] Comment on above: Performed By: #### C BC #### [facility] [address] [place] [address] Dr. Karla Hull Eosinophils/100 WBC (Bld) 1.0 % Normal 0.9-7.0 [facility] Comment on above: Performed By: #### C BC #### [facility] [address] [place] [address] Dr. Karla Hull Erythrocyte distribution width (RBC) [Ratio] 13.8 % Normal 11.0-15.0 [facility] Comment on above: Performed By: #### C BC #### [facility] [address] [place] [address] Dr. Karla Hull Hematocrit (Bld) [Volume fraction] 32.7 % Critically low 36.0-48.0 [facility] Comment on above: Performed By: #### C BC #### [facility] [address] [place] [address] Dr. Karla Hull Hemoglobin (Bld) [Mass/Vol] 10.6 g/dL Critically low 12.0-16.0 [facility] Comment on above: Performed By: #### C BC #### [facility] [address] [place] [address] Dr. Karla Hull IG # 0.01 10e3/ul Normal 0.00-0.03 [facility] Comment on above: Performed By: #### C BC #### [facility] [address] [place] [address] Dr. Karla Hull IG % 0.1 % Normal 0.0-0.5 [facility] Comment on above: Performed By: #### C BC #### [facility] [address] [place] [address] Dr. Karla Hull LYMPH # 1.8 103/ul Normal 1.2-3.8 [facility] Comment on above: Performed By: #### C BC #### [facility] [address] [place] [address] Dr. Karla Hull Lymphocytes/100 WBC (Bld) 27.3 % Normal 20.5-60.0 [facility] Comment on above: Performed By: #### C BC #### [facility] [address] [place] [address] Dr. Karla Hull MANUAL DIFF REQ NO Normal [facility] Comment on above: Performed By: #### C BC #### [facility] [address] [place] [address] Dr. Karla Hull MCH (RBC) [Entitic mass] 27.0 pg Normal 26.7-34.0 [facility] Comment on above: Performed By: #### C BC #### [facility] [address] [place] [address] Dr. Karla Hull MCHC (RBC) [Mass/Vol] 32.4 g/dL Normal 29.9-35.2 [facility] Comment on above: Performed By: #### C BC #### [facility] [address] [place] [address] Dr. Karla Hull MCV (RBC) [Entitic vol] 83.4 fL Normal 81.0-99.0 [facility] Comment on above: Performed By: #### C BC #### [facility] [address] [place] [address] Dr. Karla Hull MONO # 0.6 103/ul Normal 0.3-0.8 [facility] Comment on above: Performed By: #### C BC #### [facility] [address] [place] [address] Dr. Karla Hull Monocytes/100 WBC (Bld) 8.3 % Normal 1.7-12.0 [facility] Comment on above: Performed By: #### C BC #### [facility] [address] [place] [address] Dr. Karla Hull NEUT # 4.2 103/ul Normal 1.4-6.5 [facility] Comment on above: Performed By: #### C BC #### [facility] [address] [place] [address] Dr. Karla Hull Neutrophils/100 WBC (Bld) 62.7 % Normal 43.0-75.0 [facility] Comment on above: Performed By: #### C BC #### [facility] [address] [place] [address] Dr. Karla Hull Platelet mean volume (Bld) [Entitic vol] 9.9 fL Normal 9.5-13.5 [facility] Comment on above: Performed By: #### C BC #### [facility] [address] [place] [address] Dr. Karla Hull PLT 187 103/ul Normal 150-450 [facility] Comment on above: Performed By: #### C BC #### [facility] [address] [place] [address] Dr. Karla Hull RBC 3.92 106/ul Critically low 4.20-5.40 [facility] Comment on above: Performed By: #### C BC #### [facility] [address] [place] [address] Dr. Karla Hull WBC 6.8 103/ul Normal 4.0-11.0 [facility] Comment on above: Performed By: #### C BC #### [facility] [address] [place] [address] Dr. Karla Hull CULTURE URINEon 08-31-2022 CULTURE URINE Culture Observations : NO GROWTH. Normal [facility] Comment on above: Performed By: #### U RCX #### [facility] [address] [place] [address] Dr. Karla Hull FREE T4on 08-31-2022 Free T4 [Mass/Vol] 0.98 ng/dL Normal 0.76-1.46 [facility] Comment on above: Performed By: #### F T4 #### [facility] [address] [place] [address] Dr. Karla Hull PROF 14(COMP METB)on 023 Albumin [Mass/Vol] 3.7 g/dL Normal 3.4-5.0 [facility] Comment on above: Performed By: #### L IPID, CMP #### [facility] [address] [place] [address] Dr. Karla Hull Albumin/Globulin [Mass ratio] 0.9 {ratio} Normal [facility] Comment on above: Performed By: #### L IPID, CMP #### [facility] [address] [place] [address] Dr. Karla Hull ALP [Catalytic activity/Vol] 72 U/L Normal 46-116 [facility] Comment on above: Performed By: #### L IPID, CMP #### [facility] [address] [place] [address] Dr. Karla Hull ALT [Catalytic activity/Vol] 21 U/L Normal 14-59 [facility] Comment on above: Performed By: #### L IPID, CMP #### [facility] [address] [address] [address] Karla Hull Anion gap [Moles/Vol] 11.2 mmol/L Normal [facility] Comment on above: Performed By: #### L IPID, CMP #### [facility] [address] [place] [address] Dr. Karla Hull AST [Catalytic activity/Vol] 17 U/L Normal 15-37 [facility] Comment on above: Performed By: #### L IPID, CMP #### [facility] [address] [place] [address] Dr. Karla Hull Bilirubin [Mass/Vol] 0.3 mg/dL Normal 0.2-1.0 [facility] Comment on above: Performed By: #### L IPID, CMP #### [facility] [address] [place] [address] Dr. Karla Hull Calcium [Mass/Vol] 8.9 mg/dL Normal 8.5-10.1 [facility] Comment on above: Performed By: #### L IPID, CMP #### [facility] [address] [place] [address] Dr. Karla Hull Chloride [Moles/Vol] 102 mmol/L Normal 98-107 [facility] Comment on above: Performed By: #### L IPID, CMP #### [facility] [address] [place] [address] Dr. Karla Hull CO2 [Moles/Vol] 28.1 mmol/L Normal 21.0-32.0 [facility] Comment on above: Performed By: #### L IPID, CMP #### [facility] [address] [place] [address] Dr. Karla Hull Creatinine [Mass/Vol] 0.86 mg/dL Normal 0.55-1.02 [facility] Comment on above: Performed By: #### L IPID, CMP #### [facility] [address] [place] [address] Dr. Karla Hull EGFR-AF MONTENEGRIN >60 Normal >=60 [facility] Comment on above: Performed By: #### L IPID, CMP #### [facility] [address] [address] [address] Karla Hull EGFR-NON AF MONTENEGRIN >60 Normal >=60 [facility] Comment on above: Performed By: #### L IPID, CMP #### [facility] [address] [address] [address] Karla Hull Globulin (S) [Mass/Vol] 4.2 g/dL Normal [facility] Comment on above: Performed By: #### L IPID, CMP #### [facility] [address] [place] [address] Dr. Karla Hull Glucose [Mass/Vol] 118 mg/dL Critically high 74-106 [facility] Comment on above: Performed By: #### L IPID, CMP #### [facility] [address] [place] [address] Dr. Karla Hull Potassium [Moles/Vol] 4.3 mmol/L Normal 3.5-5.1 [facility] Comment on above: Performed By: #### L IPID, CMP #### [facility] [address] [place] [address] Dr. Karla Hull Protein [Mass/Vol] 7.9 g/dL Normal 6.4-8.2 [facility] Comment on above: Performed By: #### L IPID, CMP #### [facility] [address] [place] [address] Dr. Karla Hull Sodium [Moles/Vol] 137 mmol/L Normal 136-145 [facility] Comment on above: Performed By: #### L IPID, CMP #### [facility] [address] [place] [address] Dr. Karla Hull Urea nitrogen [Mass/Vol] 15.0 mg/dL Normal 7.0-18.0 [facility] Comment on above: Performed By: #### L IPID, CMP #### [facility] [address] [place] [address] Dr. Karla Hull Urea nitrogen/Creatinine [Mass ratio] 17.4 mg/mg Normal [facility] Comment on above: Performed By: #### L IPID, CMP #### [facility] [address] [address] [address] Karla Hull TSHon 08-31-2022 TSH 1.299 uIU/mL Normal 0.358-3.[address] [facility] Comment on above: Performed By: #### L IPID, CMP #### [facility] [address] [place] [address] Dr. Karla Hull UA RANDOM W/MICROSCOPICon BACTERIA MODERATE Abnormal NONE SEEN [facility] Comment on above: Performed By: #### U AMIC #### [facility] [address] [place] [address] Dr. Karla Hull Bilirubin Ql (U) Negative Normal NEGATIVE [facility] Comment on above: Performed By: #### U AMIC #### [facility] [address] [place] [address] Dr. Karla Hull CAST NONE SEEN Normal NONE SEEN [facility] Comment on above: Performed By: #### U AMIC #### [facility] [address] [place] [address] Dr. Karla Hull Clarity (U) CLEAR Normal CLEAR [facility] Comment on above: Performed By: #### U AMIC #### [facility] [address] [place] [address] Dr. Karla Hull Color (U) LT. YELLOW Normal YELLOW [facility] Comment on above: Performed By: #### U AMIC #### [facility] [address] [place] [address] Dr. Karla Hull Crystals LM Nom (Urine sed) NONE SEEN Normal NONE SEEN [facility] Comment on above: Performed By: #### U AMIC #### [facility] [address] [address] [address] Karla Hull Epithelial cells LM Ql (Urine sed) FEW Abnormal NONE SEEN /RARE [facility] Comment on above: Performed By: #### U AMIC #### [facility] [address] [place] [address] Dr. Karla Hull Glucose Ql (U) Negative Normal NEGATIVE [facility] Comment on above: Performed By: #### U AMIC #### [facility] [address] [address] [address] Karla Hull Hemoglobin Ql (U) TRACE-INTACT Abnormal NEGATIVE [facility] Comment on above: Performed By: #### U AMIC #### [facility] [address] [address] [address] Karla Hull Ketones Ql (U) Negative Normal NEGATIVE [facility] Comment on above: Performed By: #### U AMIC #### [facility] [address] [address] [address] Karla Hull LEUKOCYTES LARGE Abnormal NEGATIVE [facility] Comment on above: Performed By: #### U AMIC #### [facility] [address] [place] [address] Dr. Karla Hull MUCOUS NONE SEEN Normal NONE SEEN [facility] Comment on above: Performed By: #### U AMIC #### [facility] [address] [address] [address] Karla Hull Nitrite Ql (U) Negative Normal NEGATIVE [facility] Comment on above: Performed By: #### U AMIC #### [facility] [address] [address] [address] Karla Hull pH (U) 7.0 [pH] Normal 5-9 [facility] Comment on above: Performed By: #### U AMIC #### [facility] [address] [place] [address] Dr. Karla Hull RBC 0-2 Normal 0-2 [facility] Comment on above: Performed By: #### U AMIC #### [facility] [address] [place] [address] Dr. Karla Hull SPEC GRAVITY 1.010 Normal 1.005-<=1.025 [facility] Comment on above: Performed By: #### U AMIC #### [facility] [address] [place] [address] Dr. Karla Hull UA PROTEIN Negative Normal NEGATIVE/ TRACE [facility] Comment on above: Performed By: #### U AMIC #### [facility] [address] [place], [place] [id number] Dr. Karla Hull Urobilinogen Qn (U) 0.2 {More'U}/dL Normal 0.2 - 1. 0 [facility] Comment on above: Performed By: #### U AMIC #### [facility] [address] [address] [address] Karla Hull WBC 10-20 Abnormal NONE SEEN [facility] Comment on above: Performed By: #### U AMIC #### [facility] [address] [address] [address] Karla Hull CNOVon 12-27-2021 CNOV Office Visit (PULMMN ) MOOSE JACINTO ([id number]) 1960 F Date Time Provider Department 12/27/21 12:30 PM TOÑITO GERMAN During your visit today, we recorded the following information about you: Temperature Respiration Blood pressure Weight 97.1 degrees 16/minute 170/80 54.2 kg Toñito Tai MD 12/27/2021 1:08 PM [facility] [place] Moose Jacinto is a 61 year old year old female here for a follow up with the [facility] Interstitial Lung Disease Team. Today: Returns today to follow up on the interstitial lung disease. Last seen on 04/2021 when the plan was to repeat the PFT sooner due to a drop to 1.55 liters. Since then, she continues to feel well. PFT today back to baseline. Medications for the interstitial lung disease are MMF 100mg daily. Side effects from these medications are GI side effects to a higher dose of the MMF. No recent infections. MRC Dyspnea Scale: 1. Not troubled by breathlessness except on strenuous exercise Cough: No PAST MEDICAL HISTORY Diagnosis Date ILD (interstitial lung disease) (HCC) Scleroderma (HCC) PAST SURGICAL HISTORY Procedure Laterality Date NONE Current Outpatient Medications Medication Sig mycophenolate Mofetil (CELLCEPT) 500 mg tablet Take 2 tablets by mouth once daily. lisinopril (ZESTRIL, PRINIVIL) 20 mg tablet Take 20 mg by mouth once daily. NIFEdipine XL (ADALAT CC, PROCARDIA XL) 60 mg 24 hr tablet Take 1 tablet by mouth once daily. lisinopril (ZESTRIL, PRINIVIL) 10 mg tablet Take 1 tablet by mouth once daily. hydroCHLOROthiazide (HYDRODIURIL, ESIDRIX) 25 mg tablet Take 25 mg by mouth once daily. amLODIPine (NORVASC) 5 mg tablet Take 2 tablets by mouth once daily. hydroxychloroquine (PLAQUENIL) 200 mg tablet Take 1 tablet by mouth once daily. FERREX 150 150 mg iron capsule TK 1 C PO QD No current facility-administered medications for this visit. ALLERGIES Allergen Reactions Amoxicillin Other: See Comments Causes patient to be severely cold Iodine Unknown Sulfa (Sulfonamide * Unknown History reviewed. No pertinent family history. Social History Tobacco Use Smoking status: Never Smokeless tobacco: Never Vaping Use Vaping Use: Never used PHYSICAL EXAM: BP 170/80 Temp 36.2 ?C (97.1 ?F) (Temporal) Resp 16 Wt 54.2 kg (119 lb 7.8 oz) SpO2 100% BMI 24.13 kg/m? General appearance: Well appearing, alert, in no acute distress. Skin: No suspicious rashes or lesions Head: Normocephalic, no lesions or alopecia Eyes: No jaundice, no redness Respiratory: No labored breathing, no cyanosis. Extremities: No edema, clubbing. Musculoskeletal: No joint swelling, no deformity Neuro: Gait normal. Grossly non-focal DATA REVIEWED (independently reviewed by myself) Pulmonary Function Data FVC DLCO MM/YY abs % abs % 01/10 1.73 76 11.96 61 05/11 1.55 67.7% 11.78 59.7 05/10 1.77 77 11.56 58 08/08 1.78 77 10.4 52 11/07 1.77 76 11.63 58 05/08 1.62 76 11.1 55 06/08 1.75 77 10.8 53 02/05 1.39 61 11.[address] Chest from 04/2021 independently reviewed by me, stable Echocardiogram Was an echo performed?: No Echo 07/2019: no PH Heart Catheterization Was a right heart catheterization performed?: No RHC 06/2017: Normal PA pressures at rest and increase mean PAP and PAWP with exercise and fluid challenge suggestive of early diastolic dysfunction. 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 ECHO 01/2017 reported very mild pulmonary hypertension. RHC 06/2017 showed normal PA pressures at rest and increase mean PAP and PAWP with exercise and fluid challenge suggestive of early diastolic dysfunction. - Doing well on MMF 500mg BID. Assessment AND Plan Note: - continue mycophenolate 2 tablets daily - return in 9 months with breathing tests Toñito Tai MD December 27, 2021 1:07 PM Toñito Tai MD 12/27/2021 1:04 PM Signed - continue mycophenolate 2 tablets daily - return in 9 months with breathing tests Toñito Tai MD 12/27/2021 1:07 PM Written - continue mycophenolate 2 tablets daily - return in 9 months with breathing tests Referring Provider: SELF [200] Allergies As of Date: 12/27/2021 Noted Allergy Reaction AMOXICILLIN 02/02/2017 14 - Other: See Comments Comments: Causes patient to be severely cold IODINE 10/08/2012 16 - Unknown SULFA (SULFONAMIDE ANTIBIOTICS) 03/01/2013 16 - Unknown Date Reviewed: 12/27/2021 Reviewed by: Toñito Tai MD - Fully Assessed Reason for Visit: Recheck [92] Primary Visit Diagnosis:ILD (interstitial lung disease) ([facility]) [J84.9] Order(s):mycophenolate Mofetil (CELLCEPT) 500 mg tabletTake 2 tablets by mouth once daily.Disp: 60 (more content not included)... [facility] FUon 022 MG MAMM LT DIAG Patient: DUNCAN JACINTO Exam Date: 11/01/2021 : 1960 Gender:F Ordering : DR FRED OLIVEIRA DZhanna Admission #: [id number] Family : Order #: [id number] CLICK HERE TO VIEW EXAM RADIOLOGY REPORT PROCEDURE: MAMMOGRAM LEFT DIAGNOSTIC DIGITAL FOLLOW UP, 11/01/2021, 13:59 ULTRASOUND BREAST LEFT LIMITED, 11/01/2021, 14:56 COMPARISON: MG MAMM SCREEN 3D CORY CAD, 10/25/2021. MG MAMM SCREEN 3D CORY CAD, 10/22/2020. INDICATIONS: Abnormal findings on diagnostic imaging of breast Calculator Name NCI Breast Cancer Risk Assessment Tool 5 Year Breast Cancer Risk 1.10% Lifetime Breast Cancer Risk 5.50% Personal Breast Cancer No Personal Ovarian Cancer No Treatments None Family Cancers Father with colon cancer at age 71. LOCATION: [facility] BREAST COMPOSITION: Extremely dense, which lowers the sensitivity of mammography. FINDINGS: DIAGNOSTIC CATEGORY 2--BENIGN FINDING: LEFT BREAST: Spot magnification view of left breast demonstrates dense, but normal appearing fibroglandular tissue with scattered benign-appearing calcifications. No appreciable mass or architectural distortion. Ultrasound evaluation demonstrates normal appearing dense fibroglandular tissue. Annual screening mammography is recommended. RECOMMENDATIONS: ROUTINE MAMMOGRAM AND CLINICAL EVALUATION IN 12 MONTHS. PLEASE NOTE: A NORMAL MAMMOGRAM DOES NOT EXCLUDE THE POSSIBILITY OF BREAST CANCER. A CLINICALLY SUSPICIOUS PALPABLE LUMP SHOULD BE BIOPSIED. Dictated by: Kd Julio M.D. on 11/01/2021 at 15:20 Approved by: Kd Julio M.D. on 11/01/2021 at 15:22 Normal [facility] US BREAST LEFT LIMITEDon US BREAST LEFT LIMITED Patient: MOOSE JACINTO Exam Date: 11/01/2021 : 1960 Gender:F Ordering : DR FRED OLIVEIRA D.O. Admission #: [id number] Family : Order #: [id number] CLICK HERE TO VIEW EXAM RADIOLOGY REPORT PROCEDURE: MAMMOGRAM LEFT DIAGNOSTIC DIGITAL FOLLOW UP, 11/01/2021, 13:59 ULTRASOUND BREAST LEFT LIMITED, 11/01/2021, 14:56 COMPARISON: MG MAMM SCREEN 3D CORY CAD, 10/25/2021. MG MAMM SCREEN 3D CORY CAD, 10/22/2020. INDICATIONS: Abnormal findings on diagnostic imaging of breast Calculator Name NCI Breast Cancer Risk Assessment Tool 5 Year Breast Cancer Risk 1.10% Lifetime Breast Cancer Risk 5.50% Personal Breast Cancer No Personal Ovarian Cancer No Treatments None Family Cancers Father with colon cancer at age 71. LOCATION: [facility] BREAST COMPOSITION: Extremely dense, which lowers the sensitivity of mammography. FINDINGS: DIAGNOSTIC CATEGORY 2--BENIGN FINDING: LEFT BREAST: Spot magnification view of left breast demonstrates dense, but normal appearing fibroglandular tissue with scattered benign-appearing calcifications. No appreciable mass or architectural distortion. Ultrasound evaluation demonstrates normal appearing dense fibroglandular tissue. Annual screening mammography is recommended. RECOMMENDATIONS: ROUTINE MAMMOGRAM AND CLINICAL EVALUATION IN 12 MONTHS. PLEASE NOTE: A NORMAL MAMMOGRAM DOES NOT EXCLUDE THE POSSIBILITY OF BREAST CANCER. A CLINICALLY SUSPICIOUS PALPABLE LUMP SHOULD BE BIOPSIED. Dictated by: Kd Julio M.D. on 11/01/2021 at 15:20 Approved by: Kd Julio M.D. on 11/01/2021 at 15:22 Normal [facility] MAMM SCREEN 3D CORY CADon 10-25-2021 MG MAMM SCREEN 3D CORY CAD Patient: MOOSE JACINTO Exam Date: 10/25/2021 : 1960 Gender:F Ordering : DR FRED OLIVEIRA D.O. Admission #: [id number] Family : Order #: [id number] CLICK HERE TO VIEW EXAM RADIOLOGY REPORT PROCEDURE: MAMMOGRAM SCREENING 3D BILATERAL CAD COMPARISON: MAMM SCREEN CORY W CAD, 12/05/2018. MAMM SCREEN 3D CORY CAD, 10/22/2020. INDICATIONS: Screening mammography Calculator Name NCI Breast Cancer Risk Assessment Tool 5 Year Breast Cancer Risk 1.10% Lifetime Breast Cancer Risk 5.50% Personal Breast Cancer No Personal Ovarian Cancer No Treatments None Family Cancers Father with colon cancer at age 71. LOCATION: [facility] BREAST COMPOSITION: Extremely dense, which lowers the sensitivity of mammography. FINDINGS: DIAGNOSTIC CATEGORY 0--INCOMPLETE: NEED ADDITIONAL IMAGING EVALUATION. Scattered benign-appearing calcifications are present. Scattered benign-appearing lymph nodes are present. RIGHT BREAST: No significant suspicious finding. LEFT BREAST: 2.4 cm area mild architectural distortion seen only on the CC projection, outer half of mid breast, both on the CC view and the tomographic images. Spot compression and ultrasound follow-up is recommended. RECOMMENDATIONS: ADDITIONAL MAMMOGRAPHIC VIEWS REQUIRED: LEFT BREAST - spot compression CC projection ULTRASOUND: LEFT BREAST PLEASE NOTE: A NORMAL MAMMOGRAM DOES NOT EXCLUDE THE POSSIBILITY OF BREAST CANCER. A CLINICALLY SUSPICIOUS PALPABLE LUMP SHOULD BE BIOPSIED. Dictated by: Carrington Segura MD on 10/25/2021 at 13:29 Approved by: Carrington Segura MD on 10/25/2021 at 13:53 Normal [facility] CBC AUTO DIFFon 10-20-2021 BASO # 0.0 103/ul Normal 0.0-0.1 [facility] Comment on above: Performed By: #### L IPID, CMP #### [facility] [address] [place] [address] Dr. Karla Hull Basophils/100 WBC (Bld) 0.6 % Normal 0.2-2.0 [facility] Comment on above: Performed By: #### L IPID, CMP #### [facility] [address] [place] [address] Dr. Karla Hull EO # 0.1 103/ul Normal 0.0-0.7 [facility] Comment on above: Performed By: #### L IPID, CMP #### [facility] [address] [place] [address] Dr. Karla Hull Eosinophils/100 WBC (Bld) 0.8 % Critically low 0.9-7.0 [facility] Comment on above: Performed By: #### L IPID, CMP #### [facility] [address] [place] [address] Dr. Karla Hull Erythrocyte distribution width (RBC) [Ratio] 13.6 % Normal 11.0-15.0 [facility] Comment on above: Performed By: #### L IPID, CMP #### [facility] [address] [place] [address] Dr. Karla Hull Hematocrit (Bld) [Volume fraction] 33.7 % Critically low 36.0-48.0 [facility] Comment on above: Performed By: #### L IPID, CMP #### [facility] [address] [place] [address] Dr. Karla Hull Hemoglobin (Bld) [Mass/Vol] 10.6 g/dL Critically low 12.0-16.0 [facility] Comment on above: Performed By: #### L IPID, CMP #### [facility] [address] [address] [address] Karla Hull IG # 0.01 10e3/ul Normal 0.00-0.03 [facility] Comment on above: Performed By: #### L IPID, CMP #### [facility] [address] [address] [address] Karla Hull IG % 0.1 % Normal 0.0-0.5 [facility] Comment on above: Performed By: #### L IPID, CMP #### [facility] [address] [address] [address] Karla Hull LYMPH # 2.0 103/ul Normal 1.2-3.8 [facility] Comment on above: Performed By: #### L IPID, CMP #### [facility] [address] [address] [address] Karla Hull Lymphocytes/100 WBC (Bld) 28.2 % Normal 20.5-60.0 [facility] Comment on above: Performed By: #### L IPID, CMP #### [facility] [address] [address] [address] Karla Hull MANUAL DIFF REQ NO Normal [facility] Comment on above: Performed By: #### L IPID, CMP #### [facility] [address] [address] [address] Karla Hull MCH (RBC) [Entitic mass] 26.6 pg Critically low 26.7-34.0 [facility] Comment on above: Performed By: #### L IPID, CMP #### [facility] [address] [address] [address] Karla Hull MCHC (RBC) [Mass/Vol] 31.5 g/dL Normal 29.9-35.2 [facility] Comment on above: Performed By: #### L IPID, CMP #### [facility] [address] [address] [address] Karla Hull MCV (RBC) [Entitic vol] 84.5 fL Normal 81.0-99.0 [facility] Comment on above: Performed By: #### L IPID, CMP #### [facility] [address] [address] [address] Karla Hull MONO # 0.5 103/ul Normal 0.3-0.8 [facility] Comment on above: Performed By: #### L IPID, CMP #### [facility] [address] [address] [address] Karla Hull Monocytes/100 WBC (Bld) 7.1 % Normal 1.7-12.0 [facility] Comment on above: Performed By: #### L IPID, CMP #### [facility] [address] [address] [address] Karla Hull NEUT # 4.6 103/ul Normal 1.4-6.5 [facility] Comment on above: Performed By: #### L IPID, CMP #### [facility] [address] [place] [address] Dr. Karla Hull Neutrophils/100 WBC (Bld) 63.2 % Normal 43.0-75.0 [facility] Comment on above: Performed By: #### L IPID, CMP #### [facility] [address] [place] [address] Dr. Karla Hull Platelet mean volume (Bld) [Entitic vol] 9.9 fL Normal 9.5-13.5 [facility] Comment on above: Performed By: #### L IPID, CMP #### [facility] [address] [place] [address] Dr. Karla Hull PLT 239 103/ul Normal 150-450 [facility] Comment on above: Performed By: #### L IPID, CMP #### [facility] [address] [address] [address] Karla Hull RBC 3.99 106/ul Critically low 4.20-5.40 [facility] Comment on above: Performed By: #### L IPID, CMP #### [facility] [address] [place] [address] Dr. Karla Hull WBC 7.2 103/ul Normal 4.0-11.0 [facility] Comment on above: Performed By: #### L IPID, CMP #### [facility] [address] [place] [address] Dr. Karla Hull GLYCOHEMOGLOBIN A1Con 2021 ADA RECOMMENDATION SEE BELOW Normal [facility] Comment on above: Result Comment: ADA RECOMMENDED LIMIT 4.0 - 6.0 ADA THERAPEUTIC TARGET < 7.0 ACTION SUGGESTED > 7.0 Performed By: #### A 1C #### [facility] [address] [address] [address] Karla Hull Glucose [Mass/Vol] 131 mg/dL Normal [facility] Comment on above: Performed By: #### A 1C #### [facility] [address] [place] [address] Dr. Karla Hull HbA1c (Bld) [Mass fraction] 6.2 % Normal 4.5-6.2 [facility] Comment on above: Performed By: #### A 1C #### [facility] [address] [place] [address] Dr. Karla Hull LIPID PROFILEon 10-20-2021 CHOL-HDL RATIO NORM SEE BELOW Normal [facility] Comment on above: Result Comment: 3.3 - 4.4 LOW RISK 4.4 - 7.1 AVERAGE RISK 7.1 - 11.0 MODERATE RISK >11.0 HIGH RISK Performed By: #### L IPID, CMP #### [facility] [address] [place] [address] Dr. Karla Hull Cholesterol [Mass/Vol] 190 mg/dL Normal <=200 [facility] Comment on above: Performed By: #### L IPID, CMP #### [facility] [address] [place] [address] Dr. Karla Hull Cholesterol in HDL [Mass/Vol] 70 mg/dL Critically high 40-60 [facility] Comment on above: Performed By: #### L IPID, CMP #### [facility] [address] [place] [address] Dr. Karla Hull Cholesterol in LDL [Mass/Vol] 110.8 mg/dL Normal [facility] Comment on above: Performed By: #### L IPID, CMP #### [facility] [address] [address] [address] Karla Hull Cholesterol.total/C holesterol in HDL [Mass ratio] 2.7 {ratio} Normal [facility] Comment on above: Performed By: #### L IPID, CMP #### [facility] [address] [address] [address] Karla Hull HDL NORMAL > or = 60 mg/dl - LO W CARDIOVASCULAR RISK <40 mg/dl - HIGH CARDIOVASCULAR RISK Normal [facility] Comment on above: Performed By: #### L IPID, CMP #### [facility] [address] [address] [address] Karla Hull LDL CALC NORMAL SEE BELOW Normal [facility] Comment on above: Result Comment: <100 mg/dl OPTIMAL 100 - 129 mg/dl NEAR OR ABOVE OPTIMAL 130 - 159 mg/dl BORDERLINE HIGH 160 - 189 mg/dl HIGH >190 mg/dl VERY HIGH Performed By: #### L IPID, CMP #### [facility] [address] [place] [address] Dr. Karla Hull Triglyceride [Mass/Vol] 46 mg/dL Normal <=150 [facility] Comment on above: Performed By: #### L IPID, CMP #### [facility] [address] [place] [address] Dr. Karla Hull VLDL CALC 9.2 mg/dL Normal [facility] Comment on above: Performed By: #### L IPID, CMP #### [facility] [address] [address] [address] Karla Hull PROF 14(COMP METB)on 022 Albumin [Mass/Vol] 3.7 g/dL Normal 3.4-5.0 [facility] Comment on above: Performed By: #### L IPID, CMP #### [facility] [address] [place] [address] Dr. Karla Hull Albumin/Globulin [Mass ratio] 0.8 {ratio} Normal [facility] Comment on above: Performed By: #### L IPID, CMP #### [facility] [address] [address] [address] Karla Hull ALP [Catalytic activity/Vol] 75 U/L Normal 46-116 [facility] Comment on above: Performed By: #### L IPID, CMP #### [facility] [address] [address] [address] Karla Hull ALT [Catalytic activity/Vol] 21 U/L Normal 14-59 [facility] Comment on above: Performed By: #### L IPID, CMP #### [facility] [address] [address] [address] Karla Hull Anion gap [Moles/Vol] 13.5 mmol/L Normal [facility] Comment on above: Performed By: #### L IPID, CMP #### [facility] [address] [address] [address] Karla Hull AST [Catalytic activity/Vol] 22 U/L Normal 15-37 [facility] Comment on above: Performed By: #### L IPID, CMP #### [facility] [address] [place] [address] Dr. Karla Hull Bilirubin [Mass/Vol] 0.2 mg/dL Normal 0.2-1.0 [facility] Comment on above: Performed By: #### L IPID, CMP #### [facility] [address] [address] [address] Karla Hull Calcium [Mass/Vol] 9.4 mg/dL Normal 8.5-10.1 [facility] Comment on above: Performed By: #### L IPID, CMP #### [facility] [address] [place] [address] Dr. Karla Hull Chloride [Moles/Vol] 100 mmol/L Normal 98-107 [facility] Comment on above: Performed By: #### L IPID, CMP #### [facility] [address] [address] [address] Karla Hull CO2 [Moles/Vol] 27.1 mmol/L Normal 21.0-32.0 [facility] Comment on above: Performed By: #### L IPID, CMP #### [facility] [address] [address] [address] Karla Hull Creatinine [Mass/Vol] 0.77 mg/dL Normal 0.55-1.02 [facility] Comment on above: Performed By: #### L IPID, CMP #### [facility] [address] [address] [address] Karla Hull EGFR-AF MONTENEGRIN >60 Normal >=60 [facility] Comment on above: Performed By: #### L IPID, CMP #### [facility] [address] [address] [address] Karla Hull EGFR-NON AF MONTENEGRIN >60 Normal >=60 [facility] Comment on above: Performed By: #### L IPID, CMP #### [facility] [address] [address] [address] Karla Hull Globulin (S) [Mass/Vol] 4.4 g/dL Normal [facility] Comment on above: Performed By: #### L IPID, CMP #### [facility] [address] [place] [address] Dr. Karla Hull Glucose [Mass/Vol] 79 mg/dL Normal 74-106 [facility] Comment on above: Performed By: #### L IPID, CMP #### [facility] [address] [address] [address] Karla Hull Potassium [Moles/Vol] 4.6 mmol/L Normal 3.5-5.1 [facility] Comment on above: Performed By: #### L IPID, CMP #### [facility] [address] [address] [address] Karla Hull Protein [Mass/Vol] 8.1 g/dL Normal 6.4-8.2 [facility] Comment on above: Performed By: #### L IPID, CMP #### [facility] [address] [address] [address] Karla Hull Sodium [Moles/Vol] 136 mmol/L Normal 136-145 [facility] Comment on above: Performed By: #### L IPID, CMP #### [facility] [address] [address] [address] Karla Hull Urea nitrogen [Mass/Vol] 17.0 mg/dL Normal 7.0-18.0 [facility] Comment on above: Performed By: #### L IPID, CMP #### [facility] [address] [place], [place] [address] Dr. Karla Hull Urea nitrogen/Creatinine [Mass ratio] 22.1 mg/mg Normal [facility] Comment on above: Performed By: #### L IPID, CMP #### [facility] [address] [address] [address] Karla Lara 05-19-2021 CNPN Telephone (PULBONY) MOOSE JACINTO ([id number]) 1960 F Date Time Provider Department 05/19/21 TOÑITO GERMAN During your visit today, we recorded the following information about you: Matthias Stanislav 05/19/2021 2:41 PM Signed Received outside records from [facility] Please allow time to process Allergies As of Date: 05/19/2021 Noted Allergy Reaction AMOXICILLIN 02/02/2017 14 - Other: See Comments Comments: Causes patient to be severely cold IODINE 10/08/2012 16 - Unknown SULFA (SULFONAMIDE ANTIBIOTICS) 03/01/2013 16 - Unknown Date Reviewed: 05/06/2021 Reviewed by: Danay Reyna - Fully Assessed Reason for Visit: Received Outside Medical Records [[id number]] Prescriptions as of 05/19/2021 - lisinopril (ZESTRIL, PRINIVIL) 20 mg tablet Take 20 mg by mouth once daily. - mycophenolate Mofetil (CELLCEPT) 500 mg tablet Take 2 tablets by mouth once daily. - NIFEdipine XL (ADALAT CC, PROCARDIA XL) 60 mg 24 hr tablet Take 1 tablet by mouth once daily. - lisinopril (ZESTRIL, PRINIVIL) 10 mg tablet Take 1 tablet by mouth once daily. - hydroCHLOROthiazide (HYDRODIURIL, ESIDRIX) 25 mg tablet Take 25 mg by mouth once daily. - amLODIPine (NORVASC) 5 mg tablet Take 2 tablets by mouth once daily. - hydroxychloroquine (PLAQUENIL) 200 mg tablet Take 1 tablet by mouth once daily. - FERREX 150 150 mg iron capsule TK 1 C PO QD Problem List As Of Date 05/19/2021 Noted Resolved Scleroderma (HCC) [M34.9] 02/20/2017 NSIP (nonspecific interstitial pneumonia) (HCC)*02/20/2017 08/19/2019 Anti-LUNCH TRUCK OPERATOR antibodies present [R76.8] 02/20/2017 Positive antinuclear antibody [R76.8] 02/20/2017 ILD (interstitial lung disease) (HCC) [J84.9] 06/02/2017 Pain of both shoulder joints [M25.511, M25.512] 06/02/2017 Encounter Status:Closed by MATTHIAS LOVING on 05/19/21 Normal [facility] CNOVon 05-06-2021 CNOV Office Visit (PULMMN ) MOOSE JACINTO ([id number]) 1960 F Date Time Provider Department 05/06/21 1:30 PM TOÑITO GERMAN During your visit today, we recorded the following information about you: Pulse Respiration Blood pressure Weight 75/minute 20/minute 145/63 53.9 kg Height 1.499 m Toñito Tai MD 05/07/2021 7:09 AM [facility] [place] Moose Jacinto is a 61 year old year old female here for a follow up with the [facility] Interstitial Lung Disease Team. Today: Returns today to follow up on the interstitial lung disease. Last seen on 04/2020. Since then she has been doing well. Her shortness of breath is stable at rest and with exertion. Denies cough. She is adherent with MMF 1000mg once daily. Unable to tolerate twice daily dosing due to GI upset. Experiences acid reflux at least weekly for which she takes tums. Tried prilosec but reports it worsened her symptoms of GI distress. Hasn't tried famotidine, ranitidine. Medications for the interstitial lung disease are cellcept only. Side effects from these medications are none. Reports a cold ~ 1 month ago which resolved on its own. Blood pressure has been moderately controlled on lisinopril 20mg qd. She reports readings of 130s/80s with occasional SBP in the 150s. Last labs not in our system (done locally in [place]); She wasn't informed of any abnormalities in CBC or CMP. REVIEW OF SYSTEMS GENERAL: No weight loss, malaise or fevers HEENT: Negative for frequent or significant headaches, No changes in hearing or vision, no nose bleeds, no oral/nasal ulcers, SICCA symptoms. NECK: Negative for lumps, goiter, pain and significant neck swelling RESPIRATORY: Negative for hemoptysis, wheezing. MRC Dyspnea Scale: 2. Short of breath when hurrying or walking up a slight hill Cough: No CARDIOVASCULAR: Negative for chest pain, leg swelling or palpitations, near syncope/syncope, PND, orthopnea, lower extremity edema. GI: +acid reflux, heartburn, denies nausea, vomiting, or diarrhea MUSCULOSKELETAL: +finger joint pain b/l, denies back pain, muscle pain or weakness. SKIN: Negative for lesions, rash, itching, change skin texture, photosensitivity, alopecia. EXTREMITIES: +Raynauds disease, No clubbing, no nail changes, or digital ulcers NEURO: No history of headaches, syncope, paralysis, seizures or tremors PAST MEDICAL HISTORY Diagnosis Date - ILD (interstitial lung disease) (HCC) - Scleroderma (HCC) PAST SURGICAL HISTORY Procedure Laterality Date - NONE Current Outpatient Medications Medication Sig - lisinopril (ZESTRIL, PRINIVIL) 20 mg tablet Take 20 mg by mouth once daily. - mycophenolate Mofetil (CELLCEPT) 500 mg tablet Take 2 tablets by mouth once daily. - NIFEdipine XL (ADALAT CC, PROCARDIA XL) 60 mg 24 hr tablet Take 1 tablet by mouth once daily. - lisinopril (ZESTRIL, PRINIVIL) 10 mg tablet Take 1 tablet by mouth once daily. - hydroCHLOROthiazide (HYDRODIURIL, ESIDRIX) 25 mg tablet Take 25 mg by mouth once daily. - amLODIPine (NORVASC) 5 mg tablet Take 2 tablets by mouth once daily. - hydroxychloroquine (PLAQUENIL) 200 mg tablet Take 1 tablet by mouth once daily. - FERREX 150 150 mg iron capsule TK 1 C PO QD No current facility-administered medications for this visit. ALLERGIES Allergen Reactions - Amoxicillin Other: See Comments Causes patient to be severely cold - Iodine Unknown - Sulfa (Sulfonamide * Unknown No family history on file. Social History Tobacco Use - Smoking status: Never Smoker - Smokeless tobacco: Never Used Vaping Use - Vaping Use: Never used Substance Use Topics - Alcohol use: Not on file - Drug use: Not on file PHYSICAL EXAM: BP 145/63 Pulse 75 Resp 20 Ht 149.9 cm (4' 11 ) Wt 53.9 kg (118 lb 13.3 oz) SpO2 100% BMI 24.00 kg/m? General appearance: Well appearing, alert, in no acute distress. Skin: No suspicious rashes or lesions Head: Normocephalic, no lesions or alopecia Eyes: No jaundice, no redness Respiratory: No labored breathing, no cyanosis.Clear to auscultation b/l without wheezes Oropharynx: appropriate salivary pooling, no erythema/cobblestoning Extremities: No edema, clubbing. Musculoskeletal: mild sclerodactyly in the hands b/l. No nail pitting, digital ulcers noted. No synovitis or joint swelling Neuro: Gait normal. Grossly non-focal DATA REVIEWED (independently reviewed by myself) Laboratory Data Pulmonary Function Data ? ? FVC ? DLCO ? MM/YY abs % abs % 05/11 1.55 67.7% 11.78 59.7 05/10 1.77 77 11.56 58 08/08 1.78 77 10.4 52 11/07 1.77 76 11.63 58 05/08 1.62 76 11.1 55 06/08 1.75 77 10.8 53 02/05 1.39 61 11.6 57 Radiology Data Echocardiogram Was an echo performed?: No Echo 07/2019: no PH Heart Catheterization Was a right heart catheterization performed?: No RHC (more content not included)... Normal [facility] XR CHEST 2V FRONTAL/LATon XR CHEST 2V FRONTAL/LAT * * *Final Report* * * DATE OF EXAM: May 06 2021 12:07PM AOX [id number] - XR CHEST 2V FRONTAL/LAT / PROCEDURE REASON: ILD (interstitial lung disease) (HCC) * * * * Physician Interpretation * * * * EXAMINATION: CHEST RADIOGRAPH (2 VIEW FRONTAL and LATERAL) CLINICAL HISTORY: ILD (interstitial lung disease) (HCC) MQ: [id number] EXAM DATE/TIME: 05/06/2021 12:07 PM COMPARISON: 11/30/2016 RESULT: Lines, tubes, and devices: None. Lungs and pleura: Bibasilar reticular opacities likely represent fibrotic interstitial lung disease. No acute focal lung consolidation is seen. No substantial pleural effusion is seen. There is no pneumothorax. Cardiomediastinal silhouette: Stable cardiomediastinal silhouette. Bones and soft tissues: The vertebral bodies are well aligned and the vertebral body heights are maintained. Dextrocurvature of the thoracic spine is seen. IMPRESSION: Please see body of the report. Photovoltaic Installation Technician: PSCB Transcribe Date/Time: May 06 2021 4:03P Dictated by : KARYNA GRAJEDA MD This examination was interpreted and the report reviewed and electronically signed by: KARYNA GRAJEDA MD on May 06 2021 4:04PM EST [id number] Normal [facility] Complete Blood Count Auto Di ffon 10-13-2020 Basophils (Bld) [#/Vol] 0.0 10*3/uL Normal 0.0-0.2 [facility] Comment on above: Performed By: #### E SR, CBC, HEPATIC, CK, CREAT #### [facility] [address] [place] [address] [place] Basophils/100 WBC (Bld) 0.6 % Normal . [facility] Comment on above: Performed By: #### E SR, CBC, HEPATIC, CK, CREAT #### [facility] [address] [id number] [place] Eosinophils (Bld) [#/Vol] 0.1 10*3/uL Normal 0.0-0.45 [facility] Comment on above: Performed By: #### E SR, CBC, HEPATIC, CK, CREAT #### [address] Eosinophils/100 WBC (Bld) 1.3 % Normal . [facility] Comment on above: Performed By: #### E SR, CBC, HEPATIC, CK, CREAT #### [address] Erythrocyte distribution width (RBC) [Ratio] 14.3 % Normal 11.9-15.3 [facility] Comment on above: Performed By: #### E SR, CBC, HEPATIC, CK, CREAT #### [address] Hematocrit (Bld) [Volume fraction] 32.2 % Low 34.0-46.4 [facility] Comment on above: Performed By: #### E SR, CBC, HEPATIC, CK, CREAT #### [address] Hemoglobin (Bld) [Mass/Vol] 10.4 g/dL Low 11.8-15.4 [facility] Comment on above: Performed By: #### E SR, CBC, HEPATIC, CK, CREAT #### [address] Lymphocytes (Bld) [#/Vol] 1.9 10*3/uL Normal 1.00-4.8 [facility] Comment on above: Performed By: #### E SR, CBC, HEPATIC, CK, CREAT #### [address] Lymphocytes/100 WBC (Bld) 27.4 % Normal . [facility] Comment on above: Performed By: #### E SR, CBC, HEPATIC, CK, CREAT #### [address] MCH (RBC) [Entitic mass] 26.6 pg Normal 24.7-34.3 [facility] Comment on above: Performed By: #### E SR, CBC, HEPATIC, CK, CREAT #### [address] MCV (RBC) [Entitic vol] 82.5 fL Normal 80-100 [facility] Comment on above: Performed By: #### E SR, CBC, HEPATIC, CK, CREAT #### [address] Mean Corpuscular HGB Conc 32.3 g/dL Normal 32.0-35.0 [facility] Comment on above: Performed By: #### E SR, CBC, HEPATIC, CK, CREAT #### [address] Monocytes (Bld) [#/Vol] 0.7 10*3/uL Normal 0.0-0.8 [facility] Comment on above: Performed By: #### E SR, CBC, HEPATIC, CK, CREAT #### [address] Monocytes/100 WBC (Bld) 9.3 % Normal . [facility] Comment on above: Performed By: #### E SR, CBC, HEPATIC, CK, CREAT #### [address] Neutrophils (Bld) [#/Vol] 4.3 10*3/uL Normal 1.8-7.7 [facility] Comment on above: Performed By: #### E SR, CBC, HEPATIC, CK, CREAT #### [address] Neutrophils/100 WBC (Bld) 61.4 % Normal . [facility] Comment on above: Performed By: #### E SR, CBC, HEPATIC, CK, CREAT #### [address] Nucleated RBC/100 WBC (Bld) [Ratio] 0.0 % Normal 0-0.5 [facility] Comment on above: Performed By: #### E SR, CBC, HEPATIC, CK, CREAT #### [address] Platelet mean volume (Bld) [Entitic vol] 8.5 fL Normal 6.3-10.7 [facility] Comment on above: Performed By: #### E SR, CBC, HEPATIC, CK, CREAT #### [address] Platelets (Bld) [#/Vol] 220 10*3/uL Normal 150-450 [facility] Comment on above: Performed By: #### E SR, CBC, HEPATIC, CK, CREAT #### [address] RBC (Bld) [#/Vol] 3.90 10*6/uL Normal 3.60-5.[address] [facility] Comment on above: Performed By: #### E SR, CBC, HEPATIC, CK, CREAT #### [address] WBC (Bld) [#/Vol] 7.0 10*3/uL Normal 4.5-11.0 [facility] Comment on above: Performed By: #### E SR, CBC, HEPATIC, CK, CREAT #### [address] Creatine Kinaseon 10-13-2020 CK [Catalytic activity/Vol] 68 U/L Normal 22-269 [facility] Comment on above: Result Comment: PERF ORMED BY: [place] [address] PATHOLOGIST [employer] SHERI STUBBS M.D. Performed By: #### E SR, CBC, HEPATIC, CK, CREAT #### [address] Creatinineon 10-13-2020 Creatinine [Mass/Vol] 0.80 mg/dL Normal 0.44-1.03 [facility] Comment on above: Performed By: #### E SR, CBC, HEPATIC, CK, CREAT #### [address] Estimated GFR ( Maria Luisa > 60 Normal [facility] Comment on above: Result Comment: GFR estimated reference range: According to KDOQI guidelines, <60 ml/min/1.73m2 is sufficient to diagnose a patient with chronic kidney disease. PERFORMED BY: [place] [address] PATHOLOGIST [employer] SHERI STUBBS M.D. Performed By: #### E SR, CBC, HEPATIC, CK, CREAT #### [address] Estimated GFR (Non- Am > 60 Normal [facility] Comment on above: Performed By: #### E SR, CBC, HEPATIC, CK, CREAT #### [address] Erythrocyte Sedimentation Ra patricia 10-13-2020 ESR (Bld) [Velocity] 46 mm/h High 0-29 [facility] Comment on above: Result Comment: PERF ORMED BY: [place] [address] PATHOLOGIST [employer] SHERI STUBBS M.D. Performed By: #### E SR, CBC, HEPATIC, CK, CREAT #### [address] Hepatic Panelon 10-13-2020 Albumin [Mass/Vol] 3.8 g/dL Normal 3.2-5.5 [facility] Comment on above: Performed By: #### E SR, CBC, HEPATIC, CK, CREAT #### [address] Albumin/Globulin [Mass ratio] 1.1 {ratio} Normal [facility] Comment on above: Performed By: #### E SR, CBC, HEPATIC, CK, CREAT #### [address] ALP [Catalytic activity/Vol] 60 U/L Normal 32-92 [facility] Comment on above: Performed By: #### E SR, CBC, HEPATIC, CK, CREAT #### [address] [address] [place] [address] [place] ALT [Catalytic activity/Vol] 13 U/L Normal 10-60 [facility] Comment on above: Performed By: #### E SR, CBC, HEPATIC, CK, CREAT #### [facility] [address] AST [Catalytic activity/Vol] 19 U/L Normal 10-42 [facility] Comment on above: Performed By: #### E SR, CBC, HEPATIC, CK, CREAT #### [facility] [address] [place] [address] [place] Bilirubin [Mass/Vol] 0.5 mg/dL Normal 0.3-1.2 [facility] Comment on above: Performed By: #### E SR, CBC, HEPATIC, CK, CREAT #### [facility] [address] Bilirubin,Indirect Not performed Normal [facility] Comment on above: Performed By: #### E SR, CBC, HEPATIC, CK, CREAT #### [facility] [address] Bilirubin.indirect [Mass/Vol] mg/dL Normal 0.0-0.4 [facility] Comment on above: Performed By: #### E SR, CBC, HEPATIC, CK, CREAT #### [facility] [address] [place] [address] Globulin (S) [Mass/Vol] 3.5 g/dL Normal [facility] Comment on above: Performed By: #### E SR, CBC, HEPATIC, CK, CREAT #### [facility] [address] [place] [address] [place] Protein [Mass/Vol] 7.3 g/dL Normal 6.1-7.9 [facility] Comment on above: Performed By: #### E SR, CBC, HEPATIC, CK, CREAT #### [facility] [address] Vital Signs Date Time Vital Sign Value Performing Clinician Facility 05-01-2023 14:30-0500 Body height 149.86 cm Fred Ball Other [facility] Other 05-01-2023 14:30-0500 Body mass index (BMI) [Ratio] 24.76 kg/m2 Fred Ball Other [facility] Other 05-01-2023 14:30-0500 Body weight 55.61 kg Fred Ball Other [facility] Other 05-01-2023 14:30-0500 Diastolic blood pressure 81 mm[Hg] Fred Ball Other [facility] Other 05-01-2023 14:30-0500 Respiratory rate 12 /min Fred Ball Other [facility] Other 05-01-2023 14:30-0500 Systolic blood pressure 184 mm[Hg] Fred Ball Other [facility] Other 03-31-2023 11:15-0500 Body height 149.86 cm Fred Ball Other [facility] Other 03-31-2023 11:15-0500 Body mass index (BMI) [Ratio] 24.32 kg/m2 Fred Ball Other [facility] Other 03-31-2023 11:15-0500 Body weight 54.61 kg Fred Ball Other [facility] Other 03-31-2023 11:15-0500 Diastolic blood pressure 90 mm[Hg] Fred Ball Other [facility] Other 03-31-2023 11:15-0500 Respiratory rate 12 /min Fred Ball Other [facility] Other 03-31-2023 11:15-0500 Systolic blood pressure 176 mm[Hg] Fred Ball Other [facility] Other 12-27-2021 12:49-0400 Body temperature 97.11 [degF] Toñito Tai MD Work Phone: [facility] 12-27-2021 12:49-0400 Body weight 54.2 kg Toñito Tai MD Work Phone: [facility] 12-27-2021 12:49-0400 Diastolic blood pressure 80 mm[Hg] Toñito Tai MD Work Phone: [facility] 12-27-2021 12:49-0400 Respiratory rate 16 /min Toñito Tai MD Work Phone: [facility] 12-27-2021 12:49-0400 SaO2% (BldA) [Mass fraction] 100 % Toñito Tai MD Work Phone: [facility] 12-27-2021 12:49-0400 Systolic blood pressure 170 mm[Hg] Toñito Tia MD Work Phone: [facility] Encounters Encounter Date Encounter Type Care Provider Facility Start: 12-05-2023 End: 12-05-2023 ambulatory [facility] Start: 09-22-2023 Refill Toñito Tai MD Work Phone: Pulmonary Medicine Comment on above: Refill Request Start: 07-19-2023 End: 07-19-2023 ambulatory Fred Oliveira Other [facility] Other Start: 07-19-2023 Telephone encounter Fred Oliveira [facility] Start: 06-06-2023 End: 06-07-2023 ambulatory [facility] Start: 05-09-2023 End: 05-09-2023 ambulatory [facility] Start: 05-08-2023 End: 05-08-2023 ambulatory Fred Oliveira Other [facility] Other Start: 05-08-2023 Telephone encounter Fred Oliveira [facility] Start: 05-01-2023 End: 05-01-2023 ambulatory Fred Oliveira Other [facility] Other Start: 05-01-2023 Encounter for genera l adult medical examination without abnormal findings Fred Oliveira [facility] Start: 05-01-2023 Periodic preventive med est patient 40-64yrs Fred Oliveira [facility] Start: 04-05-2023 End: 04-05-2023 ambulatory Fred Oliveira Other [facility] Other Start: 04-05-2023 Telephone encounter Fred Oliveira [facility] Start: 04-03-2023 End: 04-03-2023 ambulatory Fred Oliveira Other [facility] Other Start: 04-03-2023 Telephone encounter Fred Oliveira [facility] Start: 03-31-2023 End: 03-31-2023 ambulatory Fred Oliveira Other [facility] Other Start: 03-31-2023 Office outpatient vi sit 15 minutes Fred Oliveira [facility] Start: 03-30-2023 End: 03-30-2023 ambulatory Fred Oliveira Other [facility] Other Start: 03-30-2023 Telephone encounter Fred Oliveira [facility] Start: 03-26-2023 Refill Toñito Tai MD Work Phone: Pulmonary Medicine Comment on above: Refill Request Start: 03-16-2023 End: 03-16-2023 ambulatory Fred Oliveira Other [facility] Other Start: 03-16-2023 Telephone encounter Fred Oliveira [facility] Start: 03-08-2023 End: 03-08-2023 ambulatory JEREMIAS [facility] Start: 03-01-2023 End: 03-01-2023 ambulatory Fred Oliveira Other [facility] Other Start: 03-01-2023 Nursing evaluation o f patient and report Fred Oliveira [facility] Start: 02-17-2023 End: 02-17-2023 ambulatory Keara Dunham Other [facility] Other Start: 02-17-2023 Telephone encounter Keara Kamara [facility] Start: 11-14-2022 End: 11-14-2022 ambulatory Fred Oliveira Other [facility] Other Start: 11-14-2022 Telephone encounter Fred HAMILTON [facility] Start: 09-01-2022 End: 09-01-2022 ambulatory Fred Oliveira Other [facility] Other Start: 09-01-2022 Telephone encounter Fred HAMILTON [facility] Start: 08-31-2022 Telephone encounter Fred HAMILTON [facility] Start: 08-31-2022 End: 09-01-[address] FRED OLIVEIRA [facility] Other Start: 08-30-2022 End: 08-30-2022 ambulatory Fred Oliveira Other [facility] Other Start: 08-30-2022 Office outpatient vi sit 15 minutes Fred Oliveira [facility] Start: 06-03-2022 End: 06-03-2022 ambulatory Fred Oliveira Other [facility] Other Start: 06-03-2022 Office outpatient vi sit 15 minutes Fred Oliveira [facility] Start: 12-27-2021 End: 12-27-2021 ambulatory [facility] Work Phone: Pulmonary Medicine Comment on above: Spirometry Start: 12-27-2021 End: 12-27-2021 Patient encounter procedure Pulm [facility]ct [facility] - [facility] Work Phone: [facility] Comment on above: ILD (interstitial rock ng disease) (HCC) (Primary Dx) Start: 11-01-2021 End: 11-02-[address] FRED OLIVEIRA Facility:[facility] Start: 10-27-2021 Encounter for genera l adult medical examination without abnormal findings DR FRED OLIVEIRA [facility] Start: 10-25-2021 End: 10-26-[address] FRED OLIVEIRA Facility:[facility] Start: 10-20-2021 End: 10-21-[address] FRED OLIVEIRA Facility:[facility] Start: 10-20-2021 End: 10-21-2021 Encounter for general adult medical examination without abnormal findings DR FRED OLIVEIRA Facility:[facility] Start: 10-01-2021 Adult health examination Keara Dunham Other [facility] Other Start: 09-06-2021 Refill Toñito Tai MD Work Phone: Pulmonary Medicine Comment on above: Refill Request Start: 12-07-2016 End: 12-08-2016 Ambulatory DEFAULT PHYSICIAN Facility:[facility] Procedures Date Procedure Procedure Detail Performing Clinician Start: 12-27-2021 Spmtry w/vc expirato ry екатерина w/wo mxml vol vntj Toñito Tai MD Work Phone: Start: 05-31-2017 Adult depression scr eening assessment Toñito Tai MD Work Phone: Start: 10-26-[address] Dunham Other Start: 02-28-2014 Health examination o f sub-group Keara Dunham Other Start: 06-19-2013 General examination of patient Keara Dunham Other Start: 06-19-2013 History and physical examination, administrative Keara Dunham Other Depression screening Honorio Dunham Other Screening for malign ant neoplasm of breast Keara Dunham Other Plan of Treatment Date Care Activity Detail Author Start: 01-21-2024 Influenza vaccination Influenz a Vaccine (Season Ended) [facility] Start: 05-22-2023 Behavioral Health Screening Behavioral Health Screening [facility] Start: 01-20-2023 Influenza vaccination Influenza Vacc ine (#1) [facility] Start: 10-05-2022 End: 01-26-2023 LUNG DIFFUSION CAPACITY (DLCO) LUNG DIFFUSION CAPACITY (DLCO) PFT Routine ILD (interstitial lung disease) ([facility]) Expected: 10/05/2022 (Approximate), Expires: 01/26/2023 [facility] Work Phone: Comment on above: Expected: 10/05/2022 (Approximate), Expires: 01/26/2023 Start: 10-05-2022 End: 01-26-2023 SPIROMETRY BASELINE ONLY SPIROMETRY BASELINE ONLY PFT Routine ILD (interstitial lung disease) (HCC) Expected: 10/05/2022 (Approximate), Expires: 01/26/2023 [facility] Work Phone: Comment on above: Expected: 10/05/2022 (Approximate), Expires: 01/26/2023 Start: 05-22-2022 Depression Assessment Depression Ass essment [facility] Start: 2022 RSV Vaccine (1 - 1-d ose 60+ series) RSV Vaccine (1 - 1-dose 60+ series) [facility] Start: 02-03-2022 PNEUMOCOCCAL (3 - PP SV23 or PCV20) PNEUMOCOCCAL (3 - PPSV23 or PCV20) [facility] Start: 02-03-2022 Pneumococcal vaccination [facility] Start: 01-20-2022 Influenza vaccination INFLUENZA (#1) [facility] Start: 09-26-2020 COVID-19 VACCINE (3 - Moderna risk 4-dose series) COVID-19 VACCINE (3 - Moderna risk 4-dose series) [facility] Start: 09-26-2020 COVID-19 VACCINE (3 - Moderna risk series) COVID-19 VACCINE (3 - Moderna risk series) [facility] Start: 05-31-2020 DIABETES SCREEN DIABETES SCREEN [facility] Start: 05-31-2020 Diabetes Screening Diabetes Screenin g [facility] Start: 05-31-2018 Adult depression screening assessment DEPRESSION SCREENING [facility] Start: 2012 SHINGRIX VACCINE (1 of 2) SHINGRIX VACCINE (1 of 2) [facility] Start: 2007 COLOGUARD (FIT-DNA) COLOGUARD (FIT-D NA) [facility] Start: 2007 Colonoscopy COLONOSCOPY [facility] Start: 2007 COLORECTAL CANCER SCREENING COLORECTAL CANCER SCREENING [facility] Start: [address] [facility] Start: 2007 FECAL OCCULT BLOOD FECAL OCCULT BLOO D [facility] Start: 2007 Lipid 1996 panel - S montez or Plasma Lipid Screening [facility] Start: 2007 Lipid panel Lipid Screening [facility] Start: 2007 LIPID SCREEN LIPID SCREEN [facility] Start: 2007 Screening for malign ant neoplasm of colon [facility] Start: 2007 SIGMOIDOSCOPY SIGMOIDOSCOPY [facility] Start: 2002 Mammography [facility] Start: 2002 Screening for malign ant neoplasm of breast Mammogram Screening [facility] Start: 1992 HPV TESTING HPV TESTING [facility] Start: 1992 Screening for malign ant neoplasm of cervix HPV Testing [facility] Start: 1983 PAP TESTING PAP TESTING [facility] Start: 1983 Screening for malign ant neoplasm of cervix Pap Testing [facility] Start: 1981 SHINGRIX VACCINE (1 of 2) SHINGRIX VACCINE (1 of 2) [facility] Start: 1981 Urine microalbumin profile [facility] Start: 1980 HEPATITIS C SCREENING HEPATITIS C [facility] Start: 1980 Hepatitis C screening Hepatitis C [facility] Start: 1980 HIV SCREENING HIV SCREENING [facility] Start: 1980 HIV screening HIV Screening [facility] SPIROMETRY BASELINE ONLY SPIROME TRY BASELINE ONLY PFT Routine Interstitial pulmonary disease (HCC) 12/27/2021 12:06 PM EDT [facility] Work Phone: [facility] Immunizations Immunization Date Immunization Notes Care Provider Sunil petty 03-01-2023 influenza, injectabl e, quadrivalent, preservative free Fred Oliveira Other [employer] [facility] [employer] Other 04-25-2022 influenza virus vaccine, split virus (incl. purified surface antigen) Keara Dunham Other [facility] Other 04-27-2021 influenza, injectabl e, quadrivalent, preservative free Toñito Tai MD Work Phone: [facility] 04-27-2021 influenza virus vaccine, unspecified formulation Toñito Tai MD Work Phone: [facility] 02-18-2020 influenza virus vaccine, split virus (incl. purified surface antigen) Keara Dunham Other [facility] Other 02-18-2020 influenza, injectabl e, quadrivalent, preservative free Toñito Tai MD Work Phone: [facility] 05-10-2019 pneumococcal polysaccharide vaccine, 23 valent Keara Dunham Other [facility] Other 03-26-2018 influenza, seasonal, injectable Toñito Tai MD Work Phone: [facility] 03-08-2017 influenza, seasonal, injectable Toñito Tai MD Work Phone: [facility] 03-08-2017 tetanus and diphther ia toxoids, adsorbed, preservative free, for adult use (5 Lf of tetanus toxoid and 2 Lf of diphtheria toxoid) Keara Dunham Other [facility] Other 02-03-2017 pneumococcal polysaccharide vaccine, 23 valent Toñito Tai MD Work Phone: [facility] 01-20-2017 influenza, seasonal, injectable Toñito Tai MD Work Phone: [facility] 12-29-2016 pneumococcal conjuga te vaccine, 13 valent Toñito Tai MD Work Phone: [facility] 12-29-2016 pneumococcal Conjuga te, unspecified formulation; Translations: [Need for prophylactic vaccination against Streptococcus pneumoniae (pneumococcus)] Keara Dunham Other [facility] Other 03-15-2015 influenza, seasonal, injectable, preservative free Toñito Tai MD Work Phone: [facility] 02-28-2014 diphtheria, tetanus toxoids and acellular pertussis vaccine, unspecified formulation Keara Dunham Other [facility] Other Payers Date Payer Category Payer Private Health Insurance [facility] [employer] [id number] 2009-Present [phone] [address] [address] [place] [address] O [id number] 2009 Private Health Insurance [id number] 1962 Unknown [id number] 1962 Unknown [id number] 1962 Unknown [id number] 1962 Unknown [id number] 1959 Unknown [id number] 1959 Unknown [id number] Unknown Social History Date Type Detail Facility Start: 02-02-2017 End: 12-27-2021 Tobacco smoking status NHIS Never smoked tobacco [facility] Start: 02-02-2017 End: 12-27-2021 Tobacco use and exposure Smokeless tobacco non-user [facility] Start: 1960 Sex Assigned At Not on file [facility] Start: 12-17-2021 End: 12-27-2021 Exposure to SARS-CoV-2 (event) Not sure [facility] Work Phone: Start: 12-27-2021 End: 10-03-2022 Sex Assigned At [facility] Other Start: 12-27-2021 End: 10-03-2022 History of Social function [facility] National Score (1-10 0), lower number is lower risk 87 [facility] Start: 08-19-2019 Sexual orientation Heterosexual (finding) [facility] Clinical Notes 02-20-2017 to 12-05-2023 Note Date & Type Note Facility 12-05-2023 Note [facility] Consult Note 12/05/23 Patient here for 6 mo follow up PAF and hypertension. Says episodes of palpitations and lightheadedness are occurring less frequently but still present. Denies chest pain and SOB. Pt stopped amio as she was ganing weight and did not want to take AAD. Pulse check SR 06/06/23 Patient is feeling better. She is in SR and off Amio. She is active and has limited issues. HPI: Moose Jacinto is a 63 y.o. year old with past medical history of Hypertension, cerebral aneurysm, hypothyroidism, subarachnoid hemorrhage due to ruptured aneurysm, interstitial lung disease, Raynaud's phenomenon without gangrene, systemic sclerosis with lung involvement, paroxysmal A-fib, immunosuppressed, anemia, anxiety, carpal tunnel. She was referred to us by PCP for history of A-fib She had a Holter monitor done 01/2023 which was reported that it did not show any A-fib or a-flutter she continues to have intermittent palpitations here and there but otherwise feels fairly well without any complaints of chest pain, shortness of breath, LI, LE edema She is very hypertensive today in the office and is asymptomatic without any blurred vision, headaches, shortness of breath, chest pain She is on lisinopril 20 mg daily and amlodipine 2.5 mg as needed, it is unclear why she was only taking as needed besides just preference of not being on medication I discussed with her given her history of aneurysm and severe hypertension we need to start taking amlodipine daily and will increase to 5 mg and see how she does She experiences episodes at least 2 times a month. these episodes lasted for from 15 to 20 minutes and she usually tries to rest for this to subside. she has not noted any significant difference despite being on Norvasc 5 mg. family history: Her twin sister has A-fib ECG 03/08/2023 sinus rhythm 10/2020 shows AF rvr - refer to media tab PMH: Past Medical History: Diagnosis Date Aneurysm (CMS/HCC) Hypertension PSH: Past Surgical History: Procedure Laterality Date CEREBRAL ANEURYSM REPAIR SH: Social Determinants of Health Tobacco Use: Not on file Alcohol Use: Not on file Financial Resource Strain: Not on file Food Insecurity: Not on file Transportation Needs: Not on file Physical Activity: Not on file Stress: Not on file Social Connections: Not on file Intimate Partner Violence: Unknown (07/13/2023) [facility] Fear of Current or Ex-Partner: Not on file Emotionally Abused: Not on file Physically Abused: Not on file Sexually Abused: Not on file Physically or Sexually Abused: Not on file Depression: Not on file Housing Stability: Not on file Utilities: Not on file Allergies: No Known Allergies Weight: 55.8kg Visit Vitals BP 152/85 (BP Location: Right arm, Patient Position: Sitting) Pulse 85 Ht 1.511 m (4' 11.5 ) Wt 55.8 kg (123 lb) SpO2 98% BMI 24.43 kg/m??? Smoking Status Never Assessed BSA 1.53 m??? Meds: Current Outpatient Medications on File Prior to Visit Medication Sig Dispense Refill amLODIPine (Norvasc) 5 mg tablet Take 1 tablet (5 mg) by mouth once daily as directed. 90 tablet 3 aspirin 81 mg chewable tablet Chew 1 tablet (81 mg) once daily as directed. 90 tablet 3 hydroxychloroquine (Plaquenil) 200 mg tablet Take 200 mg by mouth in the morning. iron polysaccharides (Nu-Iron,Niferex) 150 mg iron capsule TAKE 1 CAPSULE BY MOUTH EVERY OTHER DAY lisinopril 20 mg tablet Take 40 mg by mouth in the morning. mycophenolate (Cellcept) 500 mg tablet Take 1,000 mg by mouth in the morning. metoprolol succinate XL (Toprol-XL) 50 mg 24 hr tablet Take 1 tablet (50 mg) by mouth in the morning. Do not crush or chew. (Patient not taking: Reported on 06/06/2023) 90 tablet 3 No current facility-administered medications on file prior to visit. ROS: Review of Systems Constitutional: Positive for malaise/fatigue (with episodes of palpitations). Cardiovascular: Positive for palpitations (less frequent). Neurological: Positive for light-headedness (with episodes of palpitations). All other systems reviewed and are negative. Physical Exam: Constitutional General Appearance: well-nourished, well-developed, appears stated age Level of Distress: comfortable Psychiatric Mental Status: alert, normal affect Orientation: oriented to time, place, and person Insight: good judgement Eyes Lids and Conjunctivae: non-injected, no xanthelasma ENMT Ears: no lesions on external ear Nose: no lesions on external nose Oropharynx: no cyanosis, no pallor Neck Neck: supple, trachea midline Carotid Arteries: bilateral normal upstroke, no bruits Jugular Veins: normal jugular venous pressure Thyroid: not enlarged Lungs Respiratory Effort: unlabored Chest Exam: normal curvature, no thoracic deformity Auscultation: clear, no wheezing, no rales, no rhonchi Cardiovascular Rate And Rhythm: regular (more content not included)... [facility] 07-19-2023 Evaluation note Encounter Date Diagnosis Assessment Notes Jun, Solitary pulmonary nodule (ICD-10 - R91.1) PULMONARY NODULE [facility] Other 01-16-2024 NoteUT Electrophysiology Consult Note Reason for visit: new pt, hx afib Date of Telehealth Visit: 06/06/23 The patient was notified that using 3rd alliance party telecommunication application (e.g., [employer]) is not HIPPA compliant and may carry some privacy risks. Yes The visit was conducted [id number] with the use of audio and video technology between patient and provider for a virtual visit. Verbal consent to provide and bill this service was obtained on 06/06/23 . No signature was obtained due to the COVID-19 pandemic. Patient Location: Patient Home I spent 9 minutes of total time on the day of the visit. This time was spent preparing for the visit, obtaining and reviewing any outside history/data, taking a history, performing an exam/evaluation, counseling and educating patient/family about the diagnosis and plan, performing medical decision making, referring to and communicating with other health care referrals, independently interpreting results and documenting in the EMR, and coordinating care. Please see the additional documentation in this note for specific details. There are no diagnoses linked to this encounter. 06/06/23 Patient is feeling better. She is in SR and off [employer]. She is active and has limited issues. HPI: Moose Jacinto is a 63 y.o. year old with past medical history of Hypertension, cerebral aneurysm, hypothyroidism, subarachnoid hemorrhage due to ruptured aneurysm, interstitial lung disease, Raynaud's phenomenon without gangrene, systemic sclerosis with lung involvement, paroxysmal A-fib, immunosuppressed, anemia, anxiety, carpal tunnel. She was referred to us by PCP for history of A-fib She had a Holter monitor done 01/2023 which was reported that it did not show any A-fib or a-flutter she continues to have intermittent palpitations here and there but otherwise feels fairly well without any complaints of chest pain, shortness of breath, LI, LE edema She is very hypertensive today in the office and is asymptomatic without any blurred vision, headaches, shortness of breath, chest pain She is on lisinopril 20 mg daily and amlodipine 2.5 mg as needed, it is unclear why she was only taking as needed besides just preference of not being on medication I discussed with her given her history of aneurysm and severe hypertension we need to start taking amlodipine daily and will increase to 5 mg and see how she does She experiences episodes at least 2 times a month. these episodes lasted for from 15 to 20 minutes and she usually tries to rest for this to subside. she has not noted any significant difference despite being on Norvasc 5 mg. family history: Her twin sister has A-fib ECG 03/08/2023 sinus rhythm 10/2020 shows AF rvr - refer to media tab PMH: Past Medical History: Diagnosis Date Aneurysm (CMS/HCC) PSH: Past Surgical History: Procedure Laterality Date CEREBRAL ANEURYSM REPAIR SH: Social Determinants of Health Tobacco Use: Not on file Alcohol Use: Not on file Financial Resource Strain: Not on file Food Insecurity: Not on file Transportation Needs: Not on file Physical Activity: Not on file Stress: Not on file Social Connections: Not on file Intimate Partner Violence: Not on file Depression: Not on file Housing Stability: Not on file Utilities: Not on file Allergies: No Known Allergies Weight: No weight available Visit Vitals Smoking Status Never Assessed Meds: Current Outpatient Medications on File Prior to Visit Medication Sig Dispense Refill amLODIPine (Norvasc) 5 mg tablet Take 1 tablet (5 mg) by mouth once daily as directed. 90 tablet 3 aspirin 81 mg chewable tablet Chew 1 tablet (81 mg) once daily as directed. 90 tablet 3 hydroxychloroquine (Plaquenil) 200 mg tablet Take 200 mg by mouth in the morning. iron polysaccharides (Nu-Iron,Niferex) 150 mg iron capsule TAKE 1 CAPSULE BY MOUTH EVERY OTHER DAY lisinopril 20 mg tablet Take 40 mg by mouth in the morning. metoprolol succinate XL (Toprol-XL) 50 mg 24 hr tablet Take 1 tablet (50 mg) by mouth in the morning. Do not crush or chew. 90 tablet 3 mycophenolate (Cellcept) 500 mg tablet Take 1,000 mg by mouth in the morning. No current facility-administered medications on file prior to visit. ROS: Review of Systems Constitutional: Positive for malaise/fatigue. Cardiovascular: Positive for dyspnea on exertion (with episodes of palpitations) and palpitations. Neurological: Positive for light-headedness (with episodes of palpitations). All other systems reviewed and are negative. Physical Exam: Telemed Labs: Labs 08/31/2022 sodium 137, K4.3, chloride 102, glucose 118, BUN 15, creatinine 0.86, GFR greater than 60, unremarkable liver function, normal T4, normal TSH, normal T3 EKG: No results found for this or any previous visit (from the past 4464 hour(s)). Echo: 01/2021 Stress test: Coronary angiogram: @CATH@ Diagnostic Imaging: No i (more content not included)...[facility]01-16-2024 NoteTelephone call for follow up BP and starting metoprolol last month. She did not start it because she read the side effects and it warned against weight gain. BP yesterday was 150/84. BP today was 150/80, HR 87. Has not had recent episodes of palpitations that she was having before, which were accompanied with SOB and lightheadedness. Review of Systems Constitutional: Positive for malaise/fatigue. Cardiovascular: Dyspnea on exertion: with episodes of palpitations. Neurological: Light-headedness: with episodes of palpitations. All other systems reviewed and are negative.[facility] 05-09-2023 NoteUT Electrophysiology Consult Note Reason for visit: new pt, hx afib HPI: Moose Jacinto is a 63 y.o. year old with past medical history of Hypertension, cerebral aneurysm, hypothyroidism, subarachnoid hemorrhage due to ruptured aneurysm, interstitial lung disease, Raynaud's phenomenon without gangrene, systemic sclerosis with lung involvement, paroxysmal A-fib, immunosuppressed, anemia, anxiety, carpal tunnel. She was referred to us by PCP for history of A-fib She had a Holter monitor done 01/2023 which was reported that it did not show any A-fib or a-flutter she continues to have intermittent palpitations here and there but otherwise feels fairly well without any complaints of chest pain, shortness of breath, LI, LE edema She is very hypertensive today in the office and is asymptomatic without any blurred vision, headaches, shortness of breath, chest pain She is on lisinopril 20 mg daily and amlodipine 2.5 mg as needed, it is unclear why she was only taking as needed besides just preference of not being on medication I discussed with her given her history of aneurysm and severe hypertension we need to start taking amlodipine daily and will increase to 5 mg and see how she does she experiences episodes at least 2 times a month. these episodes lasted for from 15 to 20 minutes and she usually tries to rest for this to subside. she has not noted any significant difference despite being on Norvasc 5 mg. family history: Her twin sister has A-fib ECG 03/08/2023 sinus rhythm 10/2020 shows AF rvr - refer to media tab PMH: Past Medical History: Diagnosis Date Aneurysm (CMS/HCC) PSH: Past Surgical History: Procedure Laterality Date CEREBRAL ANEURYSM REPAIR SH: Social Determinants of Health Tobacco Use: Not on file Alcohol Use: Not on file Financial Resource Strain: Not on file Food Insecurity: Not on file Transportation Needs: Not on file Physical Activity: Not on file Stress: Not on file Social Connections: Not on file Intimate Partner Violence: Not on file Depression: Not on file Housing Stability: Not on file Allergies: No Known Allergies Weight: 54.9kg Visit Vitals BP 150/90 (BP Location: Left arm, Patient Position: Sitting) Pulse 79 Ht 1.511 m (4' 11.5 ) Wt 54.9 kg (121 lb) SpO2 99% BMI 24.03 kg/m??? Smoking Status Never Assessed BSA 1.52 m??? Meds: Current Outpatient Medications on File Prior to Visit Medication Sig Dispense Refill amLODIPine (Norvasc) 5 mg tablet Take 1 tablet (5 mg) by mouth once daily as directed. 90 tablet 3 aspirin 81 mg chewable tablet Chew 1 tablet (81 mg) once daily as directed. 90 tablet 3 hydroxychloroquine (Plaquenil) 200 mg tablet Take 200 mg by mouth in the morning. iron polysaccharides (Nu-Iron,Niferex) 150 mg iron capsule TAKE 1 CAPSULE BY MOUTH EVERY OTHER DAY lisinopril 20 mg tablet Take 40 mg by mouth in the morning. mycophenolate (Cellcept) 500 mg tablet Take 1,000 mg by mouth in the morning. No current facility-administered medications on file prior to visit. ROS: Review of Systems Constitutional: Positive for malaise/fatigue. Cardiovascular: Positive for dyspnea on exertion (with episodes of palpitations) and palpitations. Neurological: Positive for light-headedness (with episodes of palpitations). All other systems reviewed and are negative. Physical Exam: Constitutional General Appearance: well-nourished, well-developed, appears stated age Level of Distress: comfortable Psychiatric Mental Status: alert, normal affect Orientation: oriented to time, place, and person Insight: good judgement Eyes Lids and Conjunctivae: non-injected, no xanthelasma ENMT Ears: no lesions on external ear Nose: no lesions on external nose Oropharynx: no cyanosis, no pallor Neck Neck: supple, trachea midline Carotid Arteries: bilateral normal upstroke, no bruits Jugular Veins: normal jugular venous pressure Thyroid: not enlarged Lungs Respiratory Effort: unlabored Chest Exam: normal curvature, no thoracic deformity Auscultation: clear, no wheezing, no rales, no rhonchi Cardiovascular Rate And Rhythm: regular Heart Sounds: normal S1, normal s2, no gallop Systolic Murmur: not heard Diastolic Murmur: not heard Extremities: no cyanosis, no edema, no peripheral signs of emboli Peripheral Pulses Radial Pulse: normal Abdomen Inspection and Palpation: soft, non distended, no bruit, non tender Musculoskeletal Inspection: no joint swelling Neurologic Gait: normal gait Skin Inspection and Palpation: warm and dry Nails: no clubbing Labs: Labs 08/31/2022 sodium 137, K4.3, chloride 102, glucose 118, BUN 15, creatinine 0.86, GFR greater than 60, unremarkable liver function, normal T4, normal TSH, normal T3 EKG: No results found for this or any previous visit (from the past 4464 hour(s)). Echo: 01/2021 Stress test: Coronary angiogram: @CATH@ Diagnostic Im (more content not included)...[facility] 05-09-2023 NotePatient here for follow up echo and event monitor. Says PCP doubled her lisinopril last week for hypertension. Review of Systems Constitutional: Positive for malaise/fatigue. Cardiovascular: Positive for dyspnea on exertion (with episodes of palpitations) and palpitations. Neurological: Positive for light-headedness (with episodes of palpitations). All other systems reviewed and are negative.[facility] 05-01-2023 Evaluation note* Encounter Date Diagnosis Assessment Notes Treatment Notes Treatment Clinical Notes Apr, Wellness examination (ICD-10 - Z00.00) Healthy diet and exercise. Reviewed age-appropriate preventive testing recommended. Apr, Primary hypertension (ICD-10 - I10) This patient is instructed to consume a healthy, low-fat, low-salt diet. They are also encouraged to continue exercise to achieve/maintain a normal BMI. Patient is instruced on home BP measurements: - rest for 5 minutes w/o talking- positioned w/ feet on floor and arm supported- average best 2/3 readings w/ goal < 135/85 _update office in couple weeks w/ home readings Apr, Systemic sclerosis with lung involvement (ICD-10 - M34.81) Continue w/ biologics. Stable condition f/u [facility] Apr, Impaired fasting glucose (ICD-10 - R73.01) Healthy diet, exercise and maintain normal BMI. A1C yearly w/ wellness examination Apr, Paroxysmal atrial fibrillation (ICD-10 - I48.0) This patient is in NSR. This patient has been prescribed ASA thearpy by [facility] while awaiting her holter monitor results. They are maintaining regular scheduled appts with their program management intern. CHADs VASc score 2 (gender, HTN) - initiated on ASA therapy [facility] Other 11-13-2023 Evaluation note* Encounter Date Diagnosis Assessment Notes Treatment Notes Treatment Clinical Notes Mar, Primary hypertension (ICD-10 - I10) Mar, Systemic sclerosis with lung involvement (ICD-10 - M34.81) [employer] [facility] Other 11-13-2023 Evaluation note* Encounter Date Diagnosis Assessment Notes Treatment Notes Treatment Clinical Notes Mar, Primary hypertension (ICD-10 - I10) [employer] [facility] Other 11-10-2023 Evaluation note* Encounter Date Diagnosis Assessment Notes Treatment Notes Treatment Clinical Notes Mar, Acute bronchitis due to other specified organisms (ICD-10 - J20.8) Instructed to use Robitussin or Mucinex for cough, saline or Flonase NS for congestion, Tylenol for pain and fever. Mar, Primary hypertension (ICD-10 - I10) This patient is instructed to consume a healthy, low-fat, low-salt diet. They are also encouraged to continue exercise to achieve/maintain a normal BMI. Patient is instructed on home BP measurements: - rest for 5 minutes w/o talking- positioned w/ feet on floor and arm supported- average best 2/3 readings w/ goal < 135/85 Increase Lisinopril to bid and update office on Mar, Systemic sclerosis with lung involvement (ICD-10 - M34.81) Continue expectorant, hydrate and begin DINA. Use w/ spacer. [employer] Other [id number] Note-severely elevated -will trend bp at home x3/day for x2 weeks and drop log off to clinic -start amlodipine 5mg DAILY in addition to [facility]isinopril [facility]mg[facility]- [id number] 2 for gender, htn - she was never started on aspirin or DOAC when diagnosed in 2020 - we will start aspirin 81 mg daily - 30-day event monitor to watch for any arrhythmia burden and then can consider loop monitor - may need to consider ischemic evaluation to see if other antiarrhythmic medications can be tried aside amiodarone such as [facility]stable at this time, [facility]-hx of cerebral aneurysm with rupture, +10 years ago, has been repair with no [facility]-not a candidate for [facility]Un[facility] NoteUT Electrophysiology Consult Note Reason for visit: new pt, hx afib HPI: Moose Jacinto is a 62 y.o. year old with past medical history of Hypertension, cerebral aneurysm, hypothyroidism, subarachnoid hemorrhage due to ruptured aneurysm, interstitial lung disease, Raynaud's phenomenon without gangrene, systemic sclerosis with lung involvement, paroxysmal A-fib, immunosuppressed, anemia, anxiety, carpal tunnel She was referred to us by PCP for history of A-fib She had a Holter monitor done 01/2023 which was reported that it did not show any A-fib or a-flutter she continues to have intermittent palpitations here and there but otherwise feels fairly well without any complaints of chest pain, shortness of breath, LI, LE edema She is very hypertensive today in the office and is asymptomatic without any blurred vision, headaches, shortness of breath, chest pain She is on lisinopril 20 mg daily and amlodipine 2.5 mg as needed, it is unclear why she was only taking as needed besides just preference of not being on medication I discussed with her given her history of aneurysm and severe hypertension we need to start taking amlodipine daily and will increase to 5 mg and see how she does family history: Her twin sister has A-fib ECG 03/08/2023 sinus rhythm 10/2020 shows AF rvr - refer to media tab PMH: Past Medical History: Diagnosis Date Aneurysm (CMS/HCC) PSH: Past Surgical History: Procedure Laterality Date CEREBRAL ANEURYSM REPAIR SH: Social Determinants of Health Tobacco Use: Not on file Alcohol Use: Not on file Financial Resource Strain: Not on file Food Insecurity: Not on file Transportation Needs: Not on file Physical Activity: Not on file Stress: Not on file Social Connections: Not on file Intimate Partner Violence: Not on file Depression: Not on file Housing Stability: Not on file Allergies: No Known Allergies Weight: 55.8kg Visit Vitals BP (!) 185/96 (BP Location: Left arm, Patient Position: Sitting) Pulse 78 Ht 1.511 m (4' 11.5 ) Wt 55.8 kg (123 lb) SpO2 99% BMI 24.43 kg/m??? Smoking Status Never Assessed BSA 1.53 m??? Meds: Current Outpatient Medications on File Prior to Visit Medication Sig Dispense Refill amLODIPine (Norvasc) 2.5 mg tablet Take 2.5 mg by mouth if needed. hydroxychloroquine (Plaquenil) 200 mg tablet Take 200 mg by mouth in the morning. iron polysaccharides (Nu-Iron,Niferex) 150 mg iron capsule TAKE 1 CAPSULE BY MOUTH EVERY OTHER DAY lisinopril 20 mg tablet Take 20 mg by mouth in the morning. mycophenolate (Cellcept) 500 mg tablet Take 1,000 mg by mouth in the morning. No current facility-administered medications on file prior to visit. ROS: Cardio Basic Cardiovascular Symptoms: no lightheadedness, no leg edema, no syncope, no orthopnea, no PND, no claudication, Constitutional Constitutional: no fever, no night sweats, no significant weight gain, no significant weight loss, no exercise intolerance Eyes Eyes: no dry eyes, no irritation, no vision change ENMT Ears: no difficulty hearing, no ear pain Nose: no frequent nosebleeds, Mouth/Throat: no sore throat, no bleeding gums, no snoring, no dry mouth, no mouth ulcers, no oral abnormalities, no teeth problems Respiratory Respiratory: no cough, no wheezing, no coughing up blood, no sleep apnea Musculoskeletal Musculoskeletal: no muscle aches, no muscle weakness, joint pain+, no back pain, no swelling in the extremities Integumentary Skin no rash, no ulcer, no varicosities, no discoloration, no pruritus Neurologic Neurologic: no loss of consciousness, no weakness, no numbness, no seizures, no dizziness, no headaches Psychiatric Psych: no depression, feeling safe in relationship, no alcohol abuse, Hematologic/Lymphatic Hematologic/Lymphatic no swollen glands, no bruising Physical Exam: Constitutional General Appearance: well-nourished, well-developed, appears stated age Level of Distress: comfortable Psychiatric Mental Status: alert, normal affect Orientation: oriented to time, place, and person Insight: good judgement Eyes Lids and Conjunctivae: non-injected, no xanthelasma ENMT Ears: no lesions on external ear Nose: no lesions on external nose Oropharynx: no cyanosis, no pallor Neck Neck: supple, trachea midline Carotid Arteries: bilateral normal upstroke, no bruits Jugular Veins: normal jugular venous pressure Thyroid: not enlarged Lungs Respiratory Effort: unlabored Chest Exam: normal curvature, no thoracic deformity Auscultation: clear, no wheezing, no rales, no rhonchi Cardiovascular Rate And Rhythm: regular Heart Sounds: normal S1, normal s2, no gallop Systolic Murmur: not heard Diastolic Murmur: not heard Extremities: no cyanosis, no edema, no peripheral signs of emboli Peripheral Pulses Radial Pulse: normal Abdomen Inspection and Palpation: soft, non distended, no bruit, non tender (more content not included)...[facility]10-18-2023 Note New patient here to establish care for afib. Ref from Keara Dunham CNP. C/o palpitations, fatigue, and LI. Her twin sister also has afib and has had CVA. She wore Holter monitor recently. She has not been started on DOAC or aspirin. Only takes amlodipine PRN, she thinks about once a week. Review of Systems Constitutional: Positive for malaise/fatigue. Cardiovascular: Positive for dyspnea on exertion and palpitations. Neurological: Positive for light-headedness. All other systems reviewed and are negative.[facility] 08-31-2022 Evaluation note* Encounter Date Diagnosis Assessment Notes Treatment Notes Treatment Clinical Notes Aug, Dysuria (ICD-10 - R30.0) [employer] [facility] Other 04-12-2023 Evaluation note* Encounter Date Diagnosis Assessment Notes Treatment Notes Treatment Clinical Notes Aug, Pyuria (ICD-10 - R82.81) [employer] [facility] Other 04-11-2023 Evaluation note* Encounter Date Diagnosis Assessment Notes Treatment Notes Treatment Clinical Notes Aug, Acute non intractabl e tension-type headache (ICD-10 - G44.209) Rest, hydrate, Tylenol. 11 Aug, 2022 Nausea (ICD-10 - R11.0) Diet instructions, hydrate Zofran as needed Aug, Hypertension (ICD-10 - I10) This patient is instructed to consume a healthy, low-fat, low-salt diet. They are also encouraged to continue exercise to achieve/maintain a normal BMI. Avoid decongestants 11 Aug, 2022 Immunosuppressed status (ICD-10 - D89.9) Monitor temperature, notify office for increase temperature > 101 Aug, Systemic sclerosis with lung involvement (ICD-10 - M34.81) Aug, Hyperthyroidism (ICD-10 - E05.90) Aug, Impaired fasting glucose (ICD-10 - R73.01) [facility] Other 01-13-2023 Evaluation note* Encounter Date Diagnosis Assessment Notes Treatment Notes Treatment Clinical Notes May, Acute bronchitis due to other specified organisms (ICD-10 - J20.8) Instructed to use Robitussin or Mucinex for cough, saline or Flonase NS for congestion, Tylenol for pain and fever. May, Systemic sclerosis with lung involvement (ICD-10 - M34.81) Increase use of SABS to every 4 hours as needed for cough. 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 Author Type: Physician Type: Progress Notes Filed: 12/27/2021 1:08 PM Note Text: Respiratory [place] Moose Jacinto is a 61 year old year old female here for a follow up with the [facility] Interstitial Lung Disease Team. Today: Returns today to follow up on the interstitial lung disease. Last seen on 04/2021 when the plan was to repeat the PFT sooner due to a drop to 1.55 liters. Since then, she continues to feel well. PFT today back to baseline. Medications for the interstitial lung disease are MMF 100mg daily. Side effects from these medications are GI side effects to a higher dose of the MMF. No recent infections. MRC Dyspnea Scale: 1. Not troubled by breathlessness except on strenuous exercise Cough: No PAST MEDICAL HISTORY Diagnosis Date ILD (interstitial lung disease) (HCC) Scleroderma (HCC) PAST SURGICAL HISTORY Procedure Laterality Date NONE Current Outpatient Medications Medication Sig mycophenolate Mofetil (CELLCEPT) 500 mg tablet Take 2 tablets by mouth once daily. lisinopril (ZESTRIL, PRINIVIL) 20 mg tablet Take 20 mg by mouth once daily. NIFEdipine XL (ADALAT CC, PROCARDIA XL) 60 mg 24 hr tablet Take 1 tablet by mouth once daily. lisinopril (ZESTRIL, PRINIVIL) 10 mg tablet Take 1 tablet by mouth once daily. hydroCHLOROthiazide (HYDRODIURIL, ESIDRIX) 25 mg tablet Take 25 mg by mouth once daily. amLODIPine (NORVASC) 5 mg tablet Take 2 tablets by mouth once daily. hydroxychloroquine (PLAQUENIL) 200 mg tablet Take 1 tablet by mouth once daily. FERREX 150 150 mg iron capsule TK 1 C PO QD No current facility-administered medications for this visit. ALLERGIES Allergen Reactions Amoxicillin Other: See Comments Causes patient to be severely cold Iodine Unknown Sulfa (Sulfonamide * Unknown History reviewed. No pertinent family history. Social History Tobacco Use Smoking status: Never Smokeless tobacco: Never Vaping Use Vaping Use: Never used PHYSICAL EXAM: BP 170/80 Temp 36.2 ?C (97.1 ?F) (Temporal) Resp 16 Wt 54.2 kg (119 lb 7.8 oz) SpO2 100% BMI 24.13 kg/m? General appearance: Well appearing, alert, in no acute distress. Skin: No suspicious rashes or lesions Head: Normocephalic, no lesions or alopecia Eyes: No jaundice, no redness Respiratory: No labored breathing, no cyanosis. Extremities: No edema, clubbing. Musculoskeletal: No joint swelling, no deformity Neuro: Gait normal. Grossly non-focal DATA REVIEWED (independently reviewed by myself) Pulmonary Function Data FVC DLCO MM/YY abs % abs % 01/10 1.73 76 11.96 61 05/11 1.55 67.7% 11.78 59.7 05/10 1.77 77 11.56 58 08/08 1.78 77 10.4 52 11/07 1.77 76 11.63 58 05/08 1.62 76 11.1 55 06/08 1.75 77 10.8 53 02/05 1.39 61 11.[address] Chest from 04/2021 independently reviewed by me, stable Echocardiogram Was an echo performed?: No Echo 07/2019: no PH Heart Catheterization Was a right heart catheterization performed?: No RHC 06/2017: Normal PA pressures at rest and increase mean PAP and PAWP with exercise and fluid challenge suggestive of early diastolic dysfunction. 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 ECHO 01/2017 reported very mild pulmonary hypertension. RHC 06/2017 showed normal PA pressures at rest and increase mean PAP and PAWP with exercise and fluid challenge suggestive of early diastolic dysfunction. - Doing well on MMF 500mg BID. Assessment AND Plan Note: - continue mycophenolate 2 tablets daily - return in 9 months with breathing tests Toñito Tai MD December 27, 2021 1:07 [facility]08-08-2022 NoteHNO ID: [id number] Author: Lizette Roldan RRT Service: ? Author Type: Registered Resp Therapist Type: Progress Notes Filed: 12/27/2021 12:30 PM Note Text: PULM FUNCTION SMARTBLOCK: Provider: Toñito Tai MD Spirometry: 1 [facility]* Patient Instructions* Toñito Tai MD - 12/27/2021 1:04 PM EDT - continue mycophenolate 2 tablets daily - return in 9 months with breathing tests [facility] History of Present illness Narrative* Toñito Tai MD - 12/27/2021 12:38 PM EDT Images from the original note were not included. [facility] [place] Moose Jacinto is a 61 year old year old female here for a follow up [facility] Interstitial Lung Disease Team. Today: Returns today to follow up on the interstitial lung disease. Last seen on 04/2021 when the plan was to repeat the PFT sooner due to a drop to 1.55 liters. Since then, she continues to feel well. PFT today back to baseline. Medications for the interstitial lung disease are MMF 100mg daily. Side effects from these medications are GI side effects to a higher dose of the MMF. No recent infectio ns. MRC Dyspnea Scale: 1. Not troubled by breathlessness except on strenuous exercise Cough: No PAST MEDICAL HISTORY Diagnosis Date ILD (interstitial lung disease) (HCC) Scleroderma (HCC) PAST SURGICAL HISTORY Procedure Laterality Date NONE Current Outpatient Medications Medication Sig mycophenolate Mofetil (CELLCEPT) 500 mg tablet Take 2 tablets by mouth once daily. lisinopril (ZESTRIL, PRINIVIL) 20 mg tablet Take 20 mg by mouth once daily. NIFEdipine XL (ADALAT CC, PROCARDIA XL) 60 mg 24 hr tablet Take 1 tablet by mouth once daily. lisinopril (ZESTRIL, PRINIVIL) 10 mg tablet Take 1 tablet by mouth once daily. hydroCHLOROthiazide (HYDRODIURIL, ESIDRIX) 25 mg tablet Take 25 mg by mouth once daily. amLODIPine (NORVASC) 5 mg tablet Take 2 tablets by mouth once daily. hydroxychloroquine (PLAQUENIL) 200 mg tablet Take 1 tablet by mouth once daily. FERREX 150 150 mg iron capsule TK 1 C PO QD No current facility-administered medications for this visit. ALLERGIES Allergen Reactions Amoxicillin Other: See Comments Causes patient to be severely cold Iodine Unknown Sulfa (Sulfonamide * Unknown History reviewed. No pertinent family history. Social History Tobacco Use Smoking status: Never Smokeless tobacco: Never Vaping Use Vaping Use: Never used PHYSICAL EXAM: BP 170/80 Temp 36.2 C (97.1 F) (Temporal) Resp 16 Wt 54.2 kg (119 lb 7.8 oz) SpO2 100% BMI 24.13 kg/m General appearance: Well appearing, alert, in no acute distress. Skin: No suspicious rashes or lesions Head: Normocephalic, no lesions or alopecia Eyes: No jaundice, no redness Respiratory: No labored breathing, no cyanosis. Extremities: No edema, clubbing. Musculoskeletal: No joint swelling, no deformity Neuro: Gait normal. Grossly non-focal DATA REVIEWED (independently reviewed by myself) Pulmonary Function Data FVC DLCO MM/YY abs % abs % 01/10 1.73 76 11.96 61 05/11 1.55 67.7% 11.78 59.7 05/10 1.77 77 11.56 58 08/08 1.78 77 10.4 52 11/07 1.77 76 11.63 58 05/08 1.62 76 11.1 55 06/08 1.75 77 10.8 53 02/05 1.39 61 11.[address] Chest from 04/2021 independently reviewed by me, stable Echocardiogram Was an echo performed?: No Echo 07/2019: no PH Heart Catheterization Was a right heart catheterization performed?: No RHC 06/2017: Normal PA pressures at rest and increase mean PAP and PAWP with exercise and fluid challenge suggestive of early diastolic dysfunction. 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 ECHO 01/2017 reported very mild pulmonary hypertension. RHC 06/2017 showed normal PA pressures at rest and increase mean PAP and PAWP with exercise and fluid challenge suggestive of early diastolic dysfunction. - Doing well on MMF 500mg BID. Assessment & Plan Note: - continue mycophenolate 2 tablets daily - return in 9 months with breathing tests Toñito Tai MD December 27, 2021 1:07 PM documented in [facility] encounter[facility] History of Present illness Narrative* Lizette Roldan RRT - 12/27/2021 12:29 PM EDT PULM FUNCTION SMARTBLOCK: Provider: Toñito Tai MD Spirometry: 1 DLCO: 1 documented in this encounterSum[facility] NoteHNO ID: [id number] Author: Toñito Tai MD Service: ? Author Type: Physician Type: Progress Notes Filed: 05/07/2021 7:09 AM Note Text: [facility] [place] Mo[place] Jacinto is a 61 year old year old female here for a follow up with [facility] Interstitial Lung Disease Team. Today: Returns today to follow up on the interstitial lung disease. Last seen on 04/2020. Since then she has been doing well. Her shortness of breath is stable at rest and with exertion. Denies cough. She is adherent with MMF 1000mg once daily. Unable to tolerate twice daily dosing due to GI upset. Experiences acid reflux at least weekly for which she takes tums. Tried prilosec but reports it worsened her symptoms of GI distress. Hasn't tried famotidine, ranitidine. Medications for the interstitial lung disease are cellcept only. Side effects from these medications are none. Reports a cold ~ 1 month ago which resolved on its own. Blood pressure has been moderately controlled on lisinopril 20mg qd. She reports readings of 130s/80s with occasional SBP in the 150s. Last labs not in our system (done locally in [place]); She wasn't informed of any abnormalities in CBC or CMP. REVIEW OF SYSTEMS GENERAL: No weight loss, malaise or fevers HEENT: Negative for frequent or significant headaches, No changes in hearing or vision, no nose bleeds, no oral/nasal ulcers, SICCA symptoms. NECK: Negative for lumps, goiter, pain and significant neck swelling RESPIRATORY: Negative for hemoptysis, wheezing. MRC Dyspnea Scale: 2. Short of breath when hurrying or walking up a slight hill Cough: No CARDIOVASCULAR: Negative for chest pain, leg swelling or palpitations, near syncope/syncope, PND, orthopnea, lower extremity edema. GI: +acid reflux, heartburn, denies nausea, vomiting, or diarrhea MUSCULOSKELETAL: +finger joint pain b/l, denies back pain, muscle pain or weakness. SKIN: Negative for lesions, rash, itching, change skin texture, photosensitivity, alopecia. EXTREMITIES: +Raynauds disease, No clubbing, no nail changes, or digital ulcers NEURO: No history of headaches, syncope, paralysis, seizures or tremors PAST MEDICAL HISTORY Diagnosis Date - ILD (interstitial lung disease) (HCC) - Scleroderma (HCC) PAST SURGICAL HISTORY Procedure Laterality Date - NONE Current Outpatient Medications Medication Sig - lisinopril (ZESTRIL, PRINIVIL) 20 mg tablet Take 20 mg by mouth once daily. - mycophenolate Mofetil (CELLCEPT) 500 mg tablet Take 2 tablets by mouth once daily. - NIFEdipine XL (ADALAT CC, PROCARDIA XL) 60 mg 24 hr tablet Take 1 tablet by mouth once daily. - lisinopril (ZESTRIL, PRINIVIL) 10 mg tablet Take 1 tablet by mouth once daily. - hydroCHLOROthiazide (HYDRODIURIL, ESIDRIX) 25 mg tablet Take 25 mg by mouth once daily. - amLODIPine (NORVASC) 5 mg tablet Take 2 tablets by mouth once daily. - hydroxychloroquine (PLAQUENIL) 200 mg tablet Take 1 tablet by mouth once daily. - FERREX 150 150 mg iron capsule TK 1 C PO QD No current facility-administered medications for this visit. ALLERGIES Allergen Reactions - Amoxicillin Other: See Comments Causes patient to be severely cold - Iodine Unknown - Sulfa (Sulfonamide * Unknown No family history on file. Social History Tobacco Use - Smoking status: Never Smoker - Smokeless tobacco: Never Used Vaping Use - Vaping Use: Never used Substance Use Topics - Alcohol use: Not on file - Drug use: Not on file PHYSICAL EXAM: BP 145/63 Pulse 75 Resp 20 Ht 149.9 cm (4' 11 ) Wt 53.9 kg (118 lb 13.3 oz) SpO2 100% BMI 24.00 kg/m? General appearance: Well appearing, alert, in no acute distress. Skin: No suspicious rashes or lesions Head: Normocephalic, no lesions or alopecia Eyes: No jaundice, no redness Respiratory: No labored breathing, no cyanosis.Clear to auscultation b/l without wheezes Oropharynx: appropriate salivary pooling, no erythema/cobblestoning Extremities: No edema, clubbing. Musculoskeletal: mild sclerodactyly in the hands b/l. No nail pitting, digital ulcers noted. No synovitis or joint swelling Neuro: Gait normal. Grossly non-focal DATA REVIEWED (independently reviewed by myself) Laboratory Data Pulmonary Function Data ? ? FVC ? DLCO ? MM/YY abs % abs % 05/11 1.55 67.7% 11.78 59.7 05/10 1.77 77 11.56 58 08/08 1.78 77 10.4 52 11/07 1.77 76 11.63 58 05/08 1.62 76 11.1 55 06/08 1.75 77 10.8 53 02/05 1.39 61 11.6 57 Radiology Data Echocardiogram Was an echo performed?: No Echo 07/2019: no PH Heart Catheterization Was a right heart catheterization performed?: No RHC 06/2017: Normal PA pressures at rest and increase mean PAP and PAWP with exercise and fluid challenge suggestive of early diastolic dysfunction. Pathology None Other records ASSESSMENT Systemic sclerosis (U3 LUNCH TRUCK OPERATOR antibody positive) ILD (NSIP) GERD Arthralgias Essential HTN 59F (more content not included)...[facility]12-16-2021 NoteHNO ID: [id number] Author: KAREN Nathan) Service: ? Author Type: [employer] Type: Progress Notes Filed: 05/06/2021 12:07 PM Note Text: Radiology Service Progress Note PATIENT NAME: Mo[place] Jacinto DATE OF SERVICE: May 06, 2021 TIME: 12:07 PM PATIENT IDENTITY VERIFICATION COMPLETED USING TWO (2) IDENTIFIERS: Name and Date of confirmed by patient verbally. FALL SCREENING: Has the patient had 2 falls in the last year or 1 fall with injury or currently using an Ambulatory Assistive Device (Walker, Cane, Wheelchair, Crutches, etc.)? No PATIENT GENDER DATA: Female. status: : No status: NO. PATIENT RELEVANT IMPLANT DATA REVIEWED: Not Applicable RADIOLOGY DEPARTMENT: General X-ray: Exam(s) Completed: Chest X-Ray PERIPHERAL IV DATA: Not applicable SIGNED BY: KAREN Nathan) May 06, 2021 12:07 [facility]12-16-2021 NoteHNO ID: [id number] Author: Bull Veliz RRT Service: ? Author Type: Registered Resp Therapist Type: Progress Notes Filed: 05/06/2021 11:53 AM Note Text: PULM FUNCTION SMARTBLOCK: Provider: Toñito Tai MD Assisting Tech: Julia Ewing RRT Spirometry: 1 DLCO: 1 System: [id number] NoteProcedure (PULLMN) MOOSE JACINTO ([id number]) 1960 F Date Time Provider Department 05/06/21 11:15 AM PULM FCT LAB MAIN 4 PULLMN During your visit today, we recorded the following information about you: Bull Veliz RRT 05/06/2021 11:53 AM Signed PULM FUNCTION SMARTBLOCK: Provider: Toñito Tai MD Assisting Tech: Julia Ewing RRT Spirometry: 1 DLCO: 1 System: [id number] Referring Provider: TOÑITO GERMAN [[id number]] Allergies As of Date: 05/06/2021 Noted Allergy Reaction AMOXICILLIN 02/02/2017 14 - Other: See Comments Comments: Causes patient to be severely cold IODINE 10/08/2012 16 - Unknown SULFA (SULFONAMIDE ANTIBIOTICS) 03/01/2013 16 - Unknown Date Reviewed: 05/04/2020 Reviewed by: Kacie Stokes - Fully Assessed Reason for Visit: Spirometry [191] Primary Visit Diagnosis:ILD (interstitial lung disease) ([facility]) [J84.9] Order(s):SPIROMETRY BASELINE ONLY [1166101] Order #: [id number]. #:[id number]: 1 Prescriptions as of 05/06/2021 - mycophenolate Mofetil (CELLCEPT) 500 mg tablet Take 2 tablets by mouth twice daily. - NIFEdipine XL (ADALAT CC, PROCARDIA XL) 60 mg 24 hr tablet Take 1 tablet by mouth once daily. - lisinopril (ZESTRIL, PRINIVIL) 10 mg tablet Take 1 tablet by mouth once daily. - hydroCHLOROthiazide (HYDRODIURIL, ESIDRIX) 25 mg tablet Take 25 mg by mouth once daily. - amLODIPine (NORVASC) 5 mg tablet Take 2 tablets by mouth once daily. - hydroxychloroquine (PLAQUENIL) 200 mg tablet Take 1 tablet by mouth once daily. - FERREX 150 150 mg iron capsule TK 1 C PO QD Problem List As Of Date 05/06/2021 Noted Resolved Scleroderma (HCC) [M34.9] 02/20/2017 NSIP (nonspecific interstitial pneumonia) ([facility])*02/20/2017 08/19/2019 Anti-LUNCH TRUCK OPERATOR antibodies present [R76.8] 02/20/2017 Positive antinuclear antibody [R76.8] 02/20/2017 ILD (interstitial lung disease) ([facility]) [J84.9] 06/02/2017 Pain of both shoulder joints [M25.511, M25.512] 06/02/2017 Encounter Status:Closed by BULL VELIZ on 05/06/21[facility] 05[facility] NoteProcedure (PULLMN) MOOSE JACINTO ([id number]) 1960 F Date Time Provider Department 05/06/21 11:00 AM PULM FCT LAB MAIN 4 PULLMN During your visit today, we recorded the following information about you: Referring Provider: TOÑITO GERMAN [[id number]] Allergies As of Date: 05/06/2021 Noted Allergy Reaction AMOXICILLIN 02/02/2017 14 - Other: See Comments Comments: Causes patient to be severely cold IODINE 10/08/2012 16 - Unknown SULFA (SULFONAMIDE ANTIBIOTICS) 03/01/2013 16 - Unknown Date Reviewed: 05/04/2020 Reviewed by: Kacie Stokes - Fully Assessed Reason for Visit: Spirometry [191] Primary Visit Diagnosis:ILD (interstitial lung disease) (HCC) [J84.9] Order(s):LUNG DIFFUSION CAPACITY (DLCO) [2984975] Order #: [id number]. #:[id number]: 1 Prescriptions as of 05/06/2021 - mycophenolate Mofetil (CELLCEPT) 500 mg tablet Take 2 tablets by mouth twice daily. - NIFEdipine XL (ADALAT CC, PROCARDIA XL) 60 mg 24 hr tablet Take 1 tablet by mouth once daily. - lisinopril (ZESTRIL, PRINIVIL) 10 mg tablet Take 1 tablet by mouth once daily. - hydroCHLOROthiazide (HYDRODIURIL, ESIDRIX) 25 mg tablet Take 25 mg by mouth once daily. - amLODIPine (NORVASC) 5 mg tablet Take 2 tablets by mouth once daily. - hydroxychloroquine (PLAQUENIL) 200 mg tablet Take 1 tablet by mouth once daily. - FERREX 150 150 mg iron capsule TK 1 C PO QD Problem List As Of Date 05/06/2021 Noted Resolved Scleroderma (HCC) [M34.9] 02/20/2017 NSIP (nonspecific interstitial pneumonia) ([facility])*02/20/2017 08/19/2019 Anti-LUNCH TRUCK OPERATOR antibodies present [R76.8] 02/20/2017 Positive antinuclear antibody [R76.8] 02/20/2017 ILD (interstitial lung disease) ([facility]) [J84.9] 06/02/2017 Pain of both shoulder joints [M25.511, M25.512] 06/02/2017 Encounter Status:Closed by BULL VELIZ on 05/06/21[facility] 02-20-2017 History of Past illness Narrative* Problem Noted Date Resolved Date NSIP (nonspecific interstitial pneumonia) 201608/19/2019 documented as of this encounter (statuses as of 09/06/2021) [address]02-2017 History of Past illness Narrative* Problem Noted Date Resolved Date NSIP (nonspecific interstitial pneumonia) 201608/19/2019 documented as of this encounter (statuses as of 12/27/2021) [facility] History of Past illness Narrative* Problem Noted Date Resolved Date NSIP (nonspecific interstitial pneumonia) 201608/19/2019 documented as of this encounter (statuses as of 12/27/2021) [facility] History of Past illness Narrative* Problem Noted Date Diagnosed Date Resolved Date NSIP (nonspecific interstitial pneumonia) 02/20/2017 08/19/2019 documented as of this encounter (statuses as of 03/28/2023) [facility]* Diagnosis Interstitial pulmonary disease (HCC) Postinflammatory pulmonary fibrosis documented in this encounter [facility] note* Diagnosis ILD (interstitial lung disease) (HCC)- Primary Postinflammatory pulmonary fibrosis documented in this encounter [facility] note* Diagnosis Interstitial pulmonary disease (HCC)- Primary Postinflammatory pulmonary fibrosis documented in this encounter [facility] noteNo InformationNortBarix [facility] [place] [employer] Other [facility] general Narrative - Reported* Type Description Date Medical History Hyperthyroidism Medical History Cerebral aneurysm Medical History Hypertension Medical History Subarachnoid hemorrhage due to r uptured aneurysm Medical History Interstitial lung disease Medical History Raynauds phenomenon without gang giovanny Medical History Impaired fasting glucose Medical History Systemic sclerosis with lung inv olvement Medical History Abnormal mammogram of left breas t Medical History Pneumonia due to Coronavirus dis ease 2018 Medical History Paroxysmal atrial fibrillation w ith RVR Medical History Immunosuppressed status Medical History Anemia Medical History Generalized anxiety disorder Medical History Bilateral carpal tunnel syndrome Medical History Female hirsutism Medical History Nonspecific interstitial pneumon ia Surgical History aneurysm repair Surgical History EGD Surgical History colonoscopy [employer] [facility] Other [facility] general Narrative - Reported* Type Description Date Medical History Hyperthyroidism Medical History Cerebral aneurysm Medical History Hypertension Medical History Subarachnoid hemorrhage due to r uptured aneurysm Medical History Interstitial lung disease Medical History Raynauds phenomenon without gang giovanny Medical History Impaired fasting glucose Medical History Systemic sclerosis with lung inv olvement Medical History Abnormal mammogram of left breas t Medical History Pneumonia due to Coronavirus dis ease 2019 Medical History Paroxysmal atrial fibrillation w ith RVR Medical History Immunosuppressed status Medical History Anemia Medical History Generalized anxiety disorder Medical History Bilateral carpal tunnel syndrome Medical History Female hirsutism Medical History Nonspecific interstitial pneumon ia Surgical History aneurysm repair Surgical History EGD Surgical History colonoscopy Hospitalization History see surgical history [employer] [facility] Other History general Narrative - Reported* Type Description Date Medical History Hyperthyroidism Medical History Cerebral aneurysm Medical History Hypertension Medical History Subarachnoid hemorrhage due to r uptured aneurysm Medical History Interstitial lung disease Medical History Raynauds phenomenon without gang giovanny Medical History Impaired fasting glucose Medical History Systemic sclerosis with lung inv olvement Medical History Abnormal mammogram of left breas t Medical History Pneumonia due to Coronavirus dis ease 2018 Medical History Paroxysmal atrial fibrillation w ith RVR Medical History Immunosuppressed status Medical History Anemia Medical History Generalized anxiety disorder Medical History Bilateral carpal tunnel syndrome Medical History Female hirsutism Medical History Nonspecific interstitial pneumon ia Surgical History aneurysm repair Surgical History EGD Surgical History colonoscopy 2020 Hospitalization History see surgical history [employer] [facility] Other Reason for referral (narrative)* Outpatient Procedure (Routine) - Authorized Specialty Diagnoses / Procedures Referred By Ligia reeder Referred To [facility]AT[facility] [place] Diagnoses ILD (interstitial lung disease) (HCC) Procedures LUNG DIFFUSION CAPACITY (DLCO) DIFFUSING CAPACITY Toñito German MD [address] [place], [place] [id number] [place] [id number] Referral ID Status Reason Start Date Expiration Date Visits Requested Visits Authorized [id number] Authorized Auto-Generat ed Referral 10/05/2022 01/26/2023 1 1 * Outpatient Procedure (Routine) - Authorized Specialty Diagnoses / Procedures Referred By Ligia reeder Referred To [facility] [place] Diagnoses ILD (interstitial lung disease) (HCC) Procedures SPIROMETRY BASELINE ONLY SPMTRY W/VC EXPIRATORY ЕКАТЕРИНА W/WO MXML VOL VNTJ Toñito German MD [address] [place] [id number] [address] Referral ID Status Reason Start Date Expiration Date Visits Requested Visits Authorized [id number] Authorized Auto-Generat ed Referral 10/05/2022 01/26/2023 1 1 [facility] Summary Purpose Family History No Family History Records FoundNo Family History Records FoundNo Family History Records FoundNo Family History Records FoundNo Family History Records Found Advance Directives No Advanced Directives Records FoundNo Advanced Directives Records FoundNo Advanced Directives Records FoundNo Advanced Directives Records FoundNo Advanced Directives Records Found Additional Source Comments (unrecognized sect ion and content) No Status Records Found INFORMATION SOURCE (unrecogn ized section and content) DATE CREATED AUTHOR 11/15/2017 [facility] DATE CREATED AUTHOR AUTHOR'S ORGANIZ ATION 07/08/2021 [facility] DATE CREATED AUTHOR AUTHOR'S ORGANIZ ATION 12/27/2021 [facility] DATE CREATED AUTHOR AUTHOR'S ORGANIZ ATION 09/06/2022 [facility] DATE CREATED AUTHOR AUTHOR'S ORGANIZ ATION 12/18/2023 [facility] Source Comments (unrecognize d section and content) In the event this informatio n is protected by the Federal Confidentiality of Alcohol and Drug Abuse Patient Records regulations: The Federal rules restrict any use of the information to criminally investigate or prosecute any alcohol or drug abuse patient.[facility] the event this information is protected by the Federal Confidentiality of Alcohol and Drug Abuse Patient Records regulations: The Federal rules restrict any use of the information to criminally investigate or prosecute any alcohol or drug abuse patient.[facility] Center[facility] the event this information is protected by the Federal Confidentiality of Alcohol and Drug Abuse Patient Records regulations: The Federal rules restrict any use of the information to criminally investigate or prosecute any alcohol or drug abuse patient.[facility] Center[facility] the event this information is protected by the Federal Confidentiality of Alcohol and Drug Abuse Patient Records regulations: The Federal rules restrict any use of the information to criminally investigate or prosecute any alcohol or drug abuse patient.[facility] CenterIn the event this information is protected by the Federal Confidentiality of Alcohol and Drug Abuse Patient Records regulations: The Federal rules restrict any use of the information to criminally investigate or prosecute any alcohol or drug abuse patient.[facility] CenterIn the event this information is protected by the Federal Confidentiality of Alcohol and Drug Abuse Patient Records regulations: The Federal rules restrict any use of the information to criminally investigate or prosecute any alcohol or drug abuse patient.[facility] Reason for Visit (unrecogniz ed section and content) Reason Onset Date Comments Refill Request 09/06/2021 Reason Comments Spirometry Specialty Diagnoses / Procedures Referred By Contac t Referred To Contact [facility] Diagnoses Interstitial pulmonary disease (HCC) Procedures SPIROMETRY BASELINE ONLY SPIROMETRY WO BRONCHODILATOR Toñito German MD [address] [place] [address] [place] [phone] Referral ID Status Reason Start Date Expiration Date V isits Requested Visits Authorized [id number] Closed Auto-Generate d Referral 08/04/2021 06/05/2022 1 1 Reason Comments Recheck Specialty Diagnoses / Procedures Referred By Contac t Referred To Contact Pulmonary Disease / PULMONARY MEDICINE Diagnoses ILD Procedures OFFICE/OUTPATIENT ESTABLISHED MOD MDM 30-39 MIN RI EST ILD Self, Toñito Sanders MD [address] [place] [address] Referral ID Status Reason Start Date Expiration Date Visits Re quested Visits Authorized [id number] Closed 05/22/2021 05/21/2022 1 1 Specialty Diagnoses / Procedures [facility] Referred To Contact [facility] Diagnoses Interstitial pulmonary disease (HCC) Procedures LUNG DIFFUSION CAPACITY (DLCO) DIFFUSING CAPACITY Toñito German MD [address] [place], [place] [id number] [place] [phone] Referral ID Status Reason Start Date Expiration Date V isits Requested Visits Authorized [id number] Closed Auto-Generate d Referral 08/04/2021 06/05/2022 1 1 Reason Comments Refill Request Care Teams (unrecognized sec tion and content) Category Planner Relationship Specialty Start Date End Date Fred Oliveira DO PCP - General Internal Medicine 02/28/13 Nikita Cain Rheumatology 01/09/17 Category Planner Relationship Specialty Start Date End Date Fred Oliveira DO PCP - General Internal Medicine 02/28/13 Nikita Cain Rheumatology 01/09/17 Category Planner Relationship Specialty Start Date End Date Fred Oliveira DO PCP - General Internal Medicine 02/28/13 Nikita Cain Rheumatology 01/09/17 Category Planner Relationship Specialty Start Date End Date Fred Oliveira DO PCP - General Internal Medicine 02/28/13 Nikita Cain Rheumatology 01/09/17 Category Planner Relationship Specialty Start Date End Date Fred Oliveira DO PCP - General Internal Medicine 02/28/13 Nikita Cain Rheumatology 01/09/17 Category Planner Relationship Specialty Start Date End Date Fred Oliveira DO PCP - General Internal Medicine 02/28/13 Nikita Cain Rheumatology 01/09/17 FOR RECORDS PERTAINING TO PATIENTS WHO ARE OR HAVE BEEN ENROLLED IN A CHEMICAL DEPENDENCY/SUBSTANCEABUSE PROGRAM, SOME INFORMATION MAY BE OMITTED. This clinical summary was aggregated from multiple sources. Caution should be exercised in using it in the provision of clinical care. This summary normalizes information from multiple sources, and as a consequence, information in this document may materially change the coding, format and clinical context of patient data. In addition, data may be omitted in some cases. CLINICAL DECISIONS SHOULD BE BASED ON THE PRIMARY CLINICAL RECORDS. [facility] [employer] [facility] provides no warranty or guarantee of the accuracy or completeness of information in this document.
[2023-12-20 07:03] LABS: Basophils Percent Auto 0.8 % (0.2-2.0); Eosinophils Absolute Auto 0.1 10^3/uL (0.0-0.7); Eosinophils Percent Auto 1.3 % (0.9-7.0); Hematocrit 36.6 % (36.0-48.0); Hemoglobin 11.4 g/dL (12.0-16.0); Lymphocytes Absolute Auto 1.5 10^3/uL (1.2-3.8); Mean Corpuscular HGB Conc 31.1 g/dL (29.9-35.2); Mean Corpuscular Hemoglobin 26.6 pg (26.7-34.0); Mean Corpuscular Volume 85.3 fL (81.0-99.0); Mean Platelet Volume 9.9 fL (9.5-13.5); Monocytes Absolute Auto 0.5 10^3/uL (0.3-0.8); Monocytes Percent Auto 9.8 % (1.7-12.0); Neutrophils Absolute Auto 3.1 10^3/uL (1.4-6.5); Neutrophils Percent Auto 59.1 % (43.0-75.0); Platelet Count 191 10^3/uL (150-450); Red Blood Count 4.29 10^6/uL (4.20-5.40); Red Cell Distribution Width 13.9 % (11.0-15.0); White Blood Count 5.2 10^3/uL (4.0-11.0)
[2023-12-20 07:42] LABS: Thyroid Stimulating Hormone 1.815 uIU/mL (0.358-3.740)
[2023-12-20 13:31] LABS: Percent Iron Saturation 38.6 %
== END 2023-12-20 06:45 | disposition home or self-care (01) ==
LOC: LAB 06:45
PROVIDERS: PCP Internal Medicine; Visit Provider Internal Medicine
DX: D64.9 Anemia, unspecified (principal); R53.83 Other fatigue
CPT/HCPCS: 36415; 82607; 82728; 82746; 83540; 83550; 84443; 85025

== ENCOUNTER 2024-03-18 10:49 | Outpatient (OUT) | payer OTHER, SELFPAY ==
[2024-03-18 11:10] LABS: Basophils Absolute Auto 0.1 10^3/uL (0.0-0.1); Basophils Percent Auto 0.7 % (0.2-2.0); Eosinophils Percent Auto 0.5 % (0.9-7.0); Hematocrit 35.4 % (36.0-48.0); Immature Granulocytes Abs Auto 0.01 10^3/uL (0.00-0.03); Immature Granulocytes Pct Auto 0.1 % (0.0-0.5); Lymphocytes Absolute Auto 2.3 10^3/uL (1.2-3.8); Mean Corpuscular HGB Conc 31.1 g/dL (29.9-35.2); Mean Corpuscular Hemoglobin 26.1 pg (26.7-34.0); Mean Corpuscular Volume 84.1 fL (81.0-99.0); Mean Platelet Volume 9.9 fL (9.5-13.5); Monocytes Absolute Auto 0.8 10^3/uL (0.3-0.8); Monocytes Percent Auto 10.2 % (1.7-12.0); Neutrophils Absolute Auto 4.2 10^3/uL (1.4-6.5); Neutrophils Percent Auto 57.5 % (43.0-75.0); Platelet Count 196 10^3/uL (150-450); Red Blood Count 4.21 10^6/uL (4.20-5.40); Red Cell Distribution Width 14.2 % (11.0-15.0); White Blood Count 7.4 10^3/uL (4.0-11.0)
[2024-03-18 11:20] LABS: Anion Gap 11.7; BUN Creatinine Ratio 15.7; Calcium 9.1 mg/dL (8.5-10.1); Carbon Dioxide 29.2 mmol/L (21.0-32.0); Chloride 103 mmol/L (98-107); Estimated GFR (African America >60 (>=60 mL/min/1.73m^2); Estimated GFR (Non-African Ame >60 (>=60 mL/min/1.73m^2); Glucose 90 mg/dL (74-106); Potassium 3.9 mmol/L (3.5-5.1); Sodium 140 mmol/L (136-145)
== END 2024-03-18 10:50 | disposition home or self-care (01) ==
LOC: LAB 10:50
PROVIDERS: PCP Internal Medicine; Visit Provider Internal Medicine Cardiovascular Disease
DX: Z01.812 Encounter for preprocedural laboratory examination (principal); Z01.818 Encounter for other preprocedural examination
CPT/HCPCS: 36415; 80048; 85025

== ENCOUNTER 2024-03-20 09:25 | Outpatient (OUT) | payer OTHER, SELFPAY ==
--- OUTSIDE RECORDS SUMMARY | 2024-03-20 09:32 | XMS_ITS | CCD ---
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 #### [facility] [address] [place] [address] Dr. Karla Hull EO # 0.1 103/ul Normal 0.0-0.7 [facility] Comment on above: Performed By: #### L IPID, CMP #### [facility] [address] [place] [address] Dr. Karla Hull Eosinophils/100 WBC (Bld) 0.8 % Critically low 0.9-7.0 [facility] Comment on above: Performed By: #### L IPID, CMP #### [facility] [address] [place] [address] Dr. Karla Hull Erythrocyte distribution width (RBC) [Ratio] 13.6 % Normal 11.0-15.0 [facility] Comment on above: Performed By: #### L IPID, CMP #### [facility] [address] [place] [address] Dr. Karla Hull Hematocrit (Bld) [Volume fraction] 33.7 % Critically low 36.0-48.0 [facility] Comment on above: Performed By: #### L IPID, CMP #### [facility] [address] [address] [address] Karla Hull Hemoglobin (Bld) [Mass/Vol] 10.6 g/dL Critically low 12.0-16.0 [facility] Comment on above: Performed By: #### L IPID, CMP #### [facility] [address] [address] [address] Karla Hull IG # 0.01 10e3/ul Normal 0.00-0.03 [facility] Comment on above: Performed By: #### L IPID, CMP #### [facility] [address] [place] [address] Dr. Karla Hull IG % 0.1 % Normal 0.0-0.5 [facility] Comment on above: Performed By: #### L IPID, CMP #### [facility] [address] [place] [address] Dr. Karla Hull LYMPH # 2.0 103/ul Normal 1.2-3.8 [facility] Comment on above: Performed By: #### L IPID, CMP #### [facility] [address] [address] [address] Karla Hull Lymphocytes/100 WBC (Bld) 28.2 % Normal 20.5-60.0 [facility] Comment on above: Performed By: #### L IPID, CMP #### [facility] [address] [address] [address] Karla Hull MANUAL DIFF REQ NO Normal [facility] Comment on above: Performed By: #### L IPID, CMP #### [facility] [address] [place] [address] Dr. Karla Hull MCH (RBC) [Entitic mass] 26.6 pg Critically low 26.7-34.0 [facility] Comment on above: Performed By: #### L IPID, CMP #### [facility] [address] [address] [address] Karla Hull MCHC (RBC) [Mass/Vol] 31.5 g/dL Normal 29.9-35.2 [facility] Comment on above: Performed By: #### L IPID, CMP #### [facility] [address] [place] [address] Dr. Karla Hull MCV (RBC) [Entitic vol] 84.5 fL Normal 81.0-99.0 [facility] Comment on above: Performed By: #### L IPID, CMP #### [facility] [address] [place] [address] Dr. Karla Hull MONO # 0.5 103/ul Normal 0.3-0.8 [facility] Comment on above: Performed By: #### L IPID, CMP #### [facility] [address] [place] [address] Dr. Karla Hull Monocytes/100 WBC (Bld) 7.1 % Normal 1.7-12.0 [facility] Comment on above: Performed By: #### L IPID, CMP #### [facility] [address] [place] [address] Dr. Karla Hull NEUT # 4.6 103/ul Normal 1.4-6.5 [facility] Comment on above: Performed By: #### L IPID, CMP #### [facility] [address] [place] [address] Dr. Karla Hull Neutrophils/100 WBC (Bld) 63.2 % Normal 43.0-75.0 [facility] Comment on above: Performed By: #### L IPID, CMP #### [facility] [address] [place] [address] Dr. Karla Hull Platelet mean volume (Bld) [Entitic vol] 9.9 fL Normal 9.5-13.5 [facility] Comment on above: Performed By: #### L IPID, CMP #### [facility] [address] [place] [address] Dr. Karla Hull PLT 239 103/ul Normal 150-450 [facility] Comment on above: Performed By: #### L IPID, CMP #### [facility] [address] [address] [address] Karla Hull RBC 3.99 106/ul Critically low 4.20-5.40 [facility] Comment on above: Performed By: #### L IPID, CMP #### [facility] [address] [address] [address] Karla Hull WBC 7.2 103/ul Normal 4.0-11.0 [facility] Comment on above: Performed By: #### L IPID, CMP #### [facility] [address] [address] [address] Karla Hull GLYCOHEMOGLOBIN A1Con 2021 ADA RECOMMENDATION SEE BELOW Normal [facility] Comment on above: Result Comment: ADA RECOMMENDED LIMIT 4.0 - 6.0 ADA THERAPEUTIC TARGET < 7.0 ACTION SUGGESTED > 7.0 Performed By: #### A 1C #### [facility] [address] [address] [address] Karla Hull Glucose [Mass/Vol] 131 mg/dL Normal [facility] Comment on above: Performed By: #### A 1C #### [facility] [address] [address] [address] Karla Hull HbA1c (Bld) [Mass fraction] 6.2 % Normal 4.5-6.2 [facility] Comment on above: Performed By: #### A 1C #### [facility] [address] [address] [address] Karla Hull LIPID PROFILEon 10-20-2021 CHOL-HDL RATIO NORM SEE BELOW Normal [facility] Comment on above: Result Comment: 3.3 - 4.4 LOW RISK 4.4 - 7.1 AVERAGE RISK 7.1 - 11.0 MODERATE RISK >11.0 HIGH RISK Performed By: #### L IPID, CMP #### [facility] [address] [address] [address] Karla Hull Cholesterol [Mass/Vol] 190 mg/dL Normal <=200 [facility] Comment on above: Performed By: #### L IPID, CMP #### [facility] [address] [address] [address] Karla Hull Cholesterol in HDL [Mass/Vol] 70 mg/dL Critically high 40-60 [facility] Comment on above: Performed By: #### L IPID, CMP #### [facility] [address] [address] [address] Karla Hull Cholesterol in LDL [Mass/Vol] 110.8 mg/dL Normal [facility] Comment on above: Performed By: #### L IPID, CMP #### [facility] [address] [address] [address] Karla Hull Cholesterol.total/C holesterol in HDL [Mass ratio] 2.7 {ratio} Normal [facility] Comment on above: Performed By: #### L IPID, CMP #### [facility] [address] [place] [address] Dr. Karla Hull HDL NORMAL > or = 60 mg/dl - LO W CARDIOVASCULAR RISK <40 mg/dl - HIGH CARDIOVASCULAR RISK Normal [facility] Comment on above: Performed By: #### L IPID, CMP #### [facility] [address] [address] [address] Karla Hull LDL CALC NORMAL SEE BELOW Normal [facility] Comment on above: Result Comment: <100 mg/dl OPTIMAL 100 - 129 mg/dl NEAR OR ABOVE OPTIMAL 130 - 159 mg/dl BORDERLINE HIGH 160 - 189 mg/dl HIGH >190 mg/dl VERY HIGH Performed By: #### L IPID, CMP #### [facility] [address] [place] [address] Dr. Karla Hull Triglyceride [Mass/Vol] 46 mg/dL Normal <=150 [facility] Comment on above: Performed By: #### L IPID, CMP #### [facility] [address] [place] [address] Dr. Karla Hull VLDL CALC 9.2 mg/dL Normal [facility] Comment on above: Performed By: #### L IPID, CMP #### [facility] [address] [place] [address] Dr. Karla Hull PROF 14(COMP METB)on 022 Albumin [Mass/Vol] 3.7 g/dL Normal 3.4-5.0 [facility] Comment on above: Performed By: #### L IPID, CMP #### [facility] [address] [address] [address] Karla Hull Albumin/Globulin [Mass ratio] 0.8 {ratio} Normal [facility] Comment on above: Performed By: #### L IPID, CMP #### [facility] [address] [address] [address] Karla Hull ALP [Catalytic activity/Vol] 75 U/L Normal 46-116 [facility] Comment on above: Performed By: #### L IPID, CMP #### [facility] [address] [place] [address] Dr. Karla Hull ALT [Catalytic activity/Vol] 21 U/L Normal 14-59 [facility] Comment on above: Performed By: #### L IPID, CMP #### [facility] [address] [address] [address] Karla Hull Anion gap [Moles/Vol] 13.5 mmol/L Normal [facility] Comment on above: Performed By: #### L IPID, CMP #### [facility] [address] [place] [address] Dr. Karla Hull AST [Catalytic activity/Vol] 22 U/L Normal 15-37 [facility] Comment on above: Performed By: #### L IPID, CMP #### [facility] [address] [address] [address] Karla Hull Bilirubin [Mass/Vol] 0.2 mg/dL Normal 0.2-1.0 [facility] Comment on above: Performed By: #### L IPID, CMP #### [facility] [address] [address] [address] Karla Hull Calcium [Mass/Vol] 9.4 mg/dL Normal 8.5-10.1 [facility] Comment on above: Performed By: #### L IPID, CMP #### [facility] [address] [address] [address] Karla Hull Chloride [Moles/Vol] 100 mmol/L Normal 98-107 [facility] Comment on above: Performed By: #### L IPID, CMP #### [facility] [address] [place] [address] Dr. Karla Hull CO2 [Moles/Vol] 27.1 mmol/L Normal 21.0-32.0 [facility] Comment on above: Performed By: #### L IPID, CMP #### [facility] [address] [place] [address] Dr. Karla Hull Creatinine [Mass/Vol] 0.77 mg/dL Normal 0.55-1.02 [facility] Comment on above: Performed By: #### L IPID, CMP #### [facility] [address] [place] [address] Dr. Karla Hull EGFR-AF JAPANESE >60 Normal >=60 [facility] Comment on above: Performed By: #### L IPID, CMP #### [facility] [address] [place] [address] Dr. Karla Hull EGFR-NON AF JAPANESE >60 Normal >=60 [facility] Comment on above: Performed By: #### L IPID, CMP #### [facility] [address] [place] [address] Dr. Karla Hull Globulin (S) [Mass/Vol] 4.4 g/dL Normal [facility] Comment on above: Performed By: #### L IPID, CMP #### [facility] [address] [place] [address] Dr. Karla Hull Glucose [Mass/Vol] 79 mg/dL Normal 74-106 [facility] Comment on above: Performed By: #### L IPID, CMP #### [facility] [address] [place] [address] Dr. Karla Hull Potassium [Moles/Vol] 4.6 mmol/L Normal 3.5-5.1 [facility] Comment on above: Performed By: #### L IPID, CMP #### [facility] [address] [address] [address] Karla Hull Protein [Mass/Vol] 8.1 g/dL Normal 6.4-8.2 [facility] Comment on above: Performed By: #### L IPID, CMP #### [facility] [address] [address] [address] Karla Hull Sodium [Moles/Vol] 136 mmol/L Normal 136-145 [facility] Comment on above: Performed By: #### L IPID, CMP #### [facility] [address] [place] [address] Dr. Karla Hull Urea nitrogen [Mass/Vol] 17.0 mg/dL Normal 7.0-18.0 [facility] Comment on above: Performed By: #### L IPID, CMP #### [facility] [address] [address] [address] Karla Hull Urea nitrogen/Creatinine [Mass ratio] 22.1 mg/mg Normal [facility] Comment on above: Performed By: #### L IPID, CMP #### [facility] [address] [address] [address] Karla Lara 05-19-2021 MARVEL Telephone (JOANNA) MOOSE JACINTO ([id number]) 1960 F Date Time Provider Department 05/19/21 TOÑITO GERMAN During your visit today, we recorded the following information about you: Matthias Stanislav 05/19/2021 2:41 PM Signed Received outside records from [facility] Please allow time to process Allergies As of Date: 05/19/2021 Noted Allergy Reaction AMOXICILLIN 02/02/2017 14 - Other: See Comments Comments: Causes patient to be severely cold IODINE 10/08/2012 16 - Unknown SULFA (SULFONAMIDE ANTIBIOTICS) 03/01/2013 16 - Unknown Date Reviewed: 05/06/2021 Reviewed by: Danay Reyna - Fully Assessed Reason for Visit: Received Outside Medical Records [[id number]] Prescriptions as of 05/19/2021 - lisinopril (ZESTRIL, [...] (HCC) [M34.9] 02/20/2017 NSIP (nonspecific interstitial pneumonia) ([facility])*02/20/2017 08/19/2019 Anti-APPLICATIONS SALES REPRESENTATIVE antibodies present [R76.8] 02/20/2017 Positive antinuclear antibody [R76.8] 02/20/2017 ILD (interstitial lung disease) ([facility]) [J84.9] 06/02/2017 Pain of both shoulder joints [M25.511, M25.512] 06/02/2017 Encounter Status:Closed by MATTHIAS LOVING on 05/19/21 [facility] CNOVon 05-06-2021 CNOV Office Visit (PULMMN ) MOOSE JACINTO ([id number]) 1960 F Date Time Provider Department 05/06/21 1:30 PM TOÑITO GERMAN During your visit today, we recorded the following information about you: Pulse Respiration Blood pressure Weight 75/minute 20/minute 145/63 53.9 kg Height 1.499 m Toñito Tai MD 05/07/2021 7:09 AM Signed Respiratory Hampton Moose Jacinto is a 61 year old year old female here for a follow up with the [facility] Interstitial Lung Disease Team. Today: Returns today [...] not in our system (done locally in [place]); She wasn't informed of any abnormalities in [...] No RHC (more content not included)... Normal [facility] XR CHEST 2V FRONTAL/LATon XR CHEST 2V [...] IMPRESSION: Please see body of the report. 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 Comment on above: Performed By: #### E SR, CBC, HEPATIC, CK, CREAT #### [address] Basophils/100 WBC (Bld) 0.6 % Normal . [facility] Comment on above: Performed By: #### E SR, CBC, HEPATIC, CK, CREAT #### [address] Eosinophils (Bld) [#/Vol] 0.1 10*3/uL Normal 0.0-0.[address] [facility] Comment on above: Performed By: #### E SR, CBC, HEPATIC, CK, CREAT #### [address] Eosinophils/100 WBC (Bld) 1.3 % Normal . [facility] Comment on above: Performed By: #### E SR, CBC, HEPATIC, CK, CREAT #### [address] Erythrocyte distribution width (RBC) [Ratio] 14.3 % Normal 11.9-15.[address] [facility] Comment on above: Performed By: #### E SR, CBC, HEPATIC, CK, CREAT #### [address] Hematocrit (Bld) [Volume fraction] 32.2 % Low 34.0-46.[address] [facility] Comment on above: Performed By: #### E SR, CBC, HEPATIC, CK, CREAT #### [address] Hemoglobin (Bld) [Mass/Vol] 10.4 g/dL Low 11.8-15.[address] [facility] Comment on above: Performed By: #### E SR, CBC, HEPATIC, CK, CREAT #### [address] Lymphocytes (Bld) [#/Vol] 1.9 10*3/uL Normal 1.00-4.[address] [facility] Comment on above: Performed By: #### E SR, CBC, HEPATIC, CK, CREAT #### [address] Lymphocytes/100 WBC (Bld) 27.4 % Normal . [facility] Comment on above: Performed By: #### E SR, CBC, HEPATIC, CK, CREAT #### [address] MCH (RBC) [Entitic mass] 26.6 pg Normal 24.7-34.[address] [facility] Comment on above: Performed By: #### E SR, CBC, HEPATIC, CK, CREAT #### [address] MCV (RBC) [Entitic vol] 82.5 fL Normal 80-[address] [facility] Comment on above: Performed By: #### E SR, CBC, HEPATIC, CK, CREAT #### [address] Mean Corpuscular HGB Conc 32.3 g/dL Normal 32.0-35.[address] [facility] Comment on above: Performed By: #### E SR, CBC, HEPATIC, CK, CREAT #### [address] Monocytes (Bld) [#/Vol] 0.7 10*3/uL Normal 0.0-0.[address] [facility] Comment on above: Performed By: #### E SR, CBC, HEPATIC, CK, CREAT #### [address] Monocytes/100 WBC (Bld) 9.3 % Normal . [facility] Comment on above: Performed By: #### E SR, CBC, HEPATIC, CK, CREAT #### [address] Neutrophils (Bld) [#/Vol] 4.3 10*3/uL Normal 1.8-7.[address] [facility] Comment on above: Performed By: #### E SR, CBC, HEPATIC, CK, CREAT #### [address] Neutrophils/100 WBC (Bld) 61.4 % Normal . [facility] Comment on above: Performed By: #### E SR, CBC, HEPATIC, CK, CREAT #### [address] Nucleated RBC/100 WBC (Bld) [Ratio] 0.0 % Normal 0-0.[address] [facility] Comment on above: Performed By: #### E SR, CBC, HEPATIC, CK, CREAT #### [address] Platelet mean volume (Bld) [Entitic vol] 8.5 fL Normal 6.3-10.[address] [facility] Comment on above: Performed By: #### E SR, CBC, HEPATIC, CK, CREAT #### [address] Platelets (Bld) [#/Vol] 220 10*3/uL Normal 150-[address] [facility] Comment on above: Performed By: #### E SR, CBC, HEPATIC, CK, CREAT #### [address] RBC (Bld) [#/Vol] 3.90 10*6/uL Normal 3.60-5.00 [facility] Comment on above: Performed By: #### E SR, CBC, HEPATIC, CK, CREAT #### [address] WBC (Bld) [#/Vol] 7.0 10*3/uL Normal 4.5-11.0 [facility] Comment on above: Performed By: #### E SR, CBC, HEPATIC, CK, CREAT #### [address] Creatine Kinaseon 10-13-2020 CK [Catalytic activity/Vol] 68 U/L Normal 22-[address] [facility] Comment on above: Result Comment: PERF ORMED BY: [place] [id number] PATHOLOGIST RN ADVICE SHERI STUBBS M.D. Performed By: #### E SR, CBC, HEPATIC, CK, CREAT #### [address] Creatinineon 10-13-2020 Creatinine [Mass/Vol] 0.80 mg/dL Normal 0.44-1.[address] [facility] Comment on above: Performed By: #### E SR, CBC, HEPATIC, CK, CREAT #### [address] Estimated GFR ( Maria Luisa > [address] [facility] Comment on above: Result Comment: GFR estimated reference range: According to KDOQI guidelines, <60 ml/min/1.73m2 is sufficient to diagnose a patient with chronic kidney disease. PERFORMED BY: [place] [address] PATHOLOGIST RN ADVICE SHERI STUBBS M.D. Performed By: #### E SR, CBC, HEPATIC, CK, CREAT #### [address] Estimated GFR (Non- Am > [address] [facility] Comment on above: Performed By: #### E SR, CBC, HEPATIC, CK, CREAT #### [address] Erythrocyte Sedimentation Ra patricia 10-13-2020 ESR (Bld) [Velocity] 46 mm/h High 0-[address] [facility] Comment on above: Result Comment: PERF ORMED BY: [place] [address] PATHOLOGIST RN ADVICE SHERI STUBBS M.D. Performed By: #### E SR, CBC, HEPATIC, CK, CREAT #### [address] Hepatic Panelon 10-13-2020 Albumin [Mass/Vol] 3.8 g/dL Normal 3.2-5.5 [facility] Comment on above: Performed By: #### E SR, CBC, HEPATIC, CK, CREAT #### [address] [place] [address] [place] Albumin/Globulin [Mass ratio] 1.1 {ratio} Normal [facility] Comment on above: Performed By: #### E SR, CBC, HEPATIC, CK, CREAT #### [facility] [address] ALP [Catalytic activity/Vol] 60 U/L Normal 32-[address] [facility] Comment on above: Performed By: #### E SR, CBC, HEPATIC, CK, CREAT #### [facility] [address] ALT [Catalytic activity/Vol] 13 U/L Normal 10-[address] [facility] Comment on above: Performed By: #### E SR, CBC, HEPATIC, CK, CREAT #### [facility] [address] AST [Catalytic activity/Vol] 19 U/L Normal 10-[address] [facility] Comment on above: Performed By: #### E SR, CBC, HEPATIC, CK, CREAT #### [facility] [address] Bilirubin [Mass/Vol] 0.5 mg/dL Normal 0.3-1.[address] [facility] Comment on above: Performed By: #### E SR, CBC, HEPATIC, CK, CREAT #### [facility] [address] [place] [address] Bilirubin,Indirect Not performed Normal [facility] Comment on above: Performed By: #### E SR, CBC, HEPATIC, CK, CREAT #### [facility] [address] Bilirubin.indirect [Mass/Vol] mg/dL Normal 0.0-0.[address] [facility] Comment on above: Performed By: #### E SR, CBC, HEPATIC, CK, CREAT #### [facility] [address] Globulin (S) [Mass/Vol] 3.5 g/dL Normal [facility] Comment on above: Performed By: #### E SR, CBC, HEPATIC, CK, CREAT #### [facility] [address] [place] [id number] [facility] Protein [Mass/Vol] 7.3 g/dL Normal 6.1-7.9 [facility] Comment on above: Performed By: #### E SR, CBC, HEPATIC, CK, CREAT #### [facility] [address] [place] [id number] [facility] Vital Signs Date Time Vital Sign Value Performing Clinician Facility 05-01-2023 14:30-0500 Body height 149.86 cm Fred Ball Other [facility] Other 05-01-2023 14:30-0500 Body mass index (BMI) [Ratio] 24.76 kg/m2 Fred Ball Other [facility] Other 05-01-2023 14:30-0500 Body weight 55.61 kg Fred Ball Other [facility] Other 05-01-2023 14:30-0500 Diastolic blood pressure 81 mm[Hg] Fred Ball Other [facility] Other 05-01-2023 14:30-0500 Respiratory rate 12 /min Fred Ball Other [facility] Other 05-01-2023 14:30-0500 Systolic blood pressure 184 mm[Hg] Fred Ball Other [facility] Other 03-31-2023 11:15-0500 Body height 149.86 cm Fred Ball Other [facility] Other 03-31-2023 11:15-0500 Body mass index (BMI) [Ratio] 24.32 kg/m2 Fred Ball Other [facility] Other 03-31-2023 11:15-0500 Body weight 54.61 kg Fred Ball Other [facility] Other 03-31-2023 11:15-0500 Diastolic blood pressure 90 mm[Hg] Fred Ball Other [facility] Other 03-31-2023 11:15-0500 Respiratory rate 12 /min Fred Ball Other [facility] Other 03-31-2023 11:15-0500 Systolic blood pressure 176 mm[Hg] Fred Ball Other [facility] Other 12-27-2021 12:49-0400 Body temperature 97.11 [degF] Toñito Tai MD Work Phone: [facility] 12-27-2021 12:49-0400 Body weight 54.2 kg Toñito Tai MD Work Phone: [facility] 12-27-2021 12:49-0400 Diastolic blood pressure 80 mm[Hg] Toñito Tai MD Work Phone: [facility] 12-27-2021 12:49-0400 Respiratory rate 16 /min Toñito Tai MD Work Phone: [facility] 12-27-2021 12:49-0400 SaO2% (BldA) [Mass fraction] 100 % Toñito Tai MD Work Phone: [facility] 12-27-2021 12:49-0400 Systolic blood pressure 170 mm[Hg] Toñito Tai MD Work Phone: [facility] Encounters Encounter Date Encounter Type Care Provider Facility Start: 03-05-2024 End: 03-05-2024 ambulatory [facility] Start: 03-04-2024 ambulatory MAXWELL MARSHALL [facility] Start: 02-20-2024 ambulatory MANISHA MELTON [facility] Start: 01-29-2024 ambulatory [facility] Start: 01-04-2024 End: 01-04-2024 ambulatory [facility] Start: 12-05-2023 End: 12-05-2023 ambulatory [facility] Start: 09-22-2023 Refill Toñito Tai MD Work Phone: [facility] Comment on above: Refill Request Start: 07-19-2023 End: 07-19-2023 ambulatory Fred Oliveira Other [facility] Other Start: 07-19-2023 Telephone encounter Fred HAMILTON [facility] Start: 06-06-2023 End: 06-07-2023 ambulatory [facility] Start: 05-09-2023 End: 05-09-2023 ambulatory [facility] Start: 05-08-2023 End: 05-08-2023 ambulatory Fred Oliveira Other [facility] Other Start: 05-08-2023 Telephone encounter Fred Tee [facility]TON [facility] Start: 05-01-2023 End: 05-01-2023 ambulatory Fred Oliveira Other [facility] Other Start: 05-01-2023 Encounter for genera l adult medical examination without abnormal findings Fred Tee [facility] Start: 05-01-2023 Periodic preventive med est patient 40-64yrs Fred Oliveira [facility] Start: 04-05-2023 End: 04-05-2023 ambulatory Fred Oliveira Other [facility] Other Start: 04-05-2023 Telephone encounter Fred Oliveira ALFONSO [facility] Start: 04-03-2023 End: 04-03-2023 ambulatory Fred Oliveira Other [facility] Other Start: 04-03-2023 Telephone encounter Fred HAMILTON [facility] Start: 03-31-2023 End: 03-31-2023 ambulatory Fred Oliveira Other [facility] Other Start: 03-31-2023 Office outpatient vi sit 15 minutes Fred Oliveira [facility] Start: 03-30-2023 End: 03-30-2023 ambulatory Fred Oliveira Other [facility] Other Start: 03-30-2023 Telephone encounter Fred [facility]TON [facility] Start: 03-26-2023 Refill Toñito Tai MD Work Phone: Pulmonary Medicine Comment on above: Refill Request Start: 03-16-2023 End: 03-16-2023 ambulatory Fred Oliveira Other [facility] Other Start: 03-16-2023 Telephone encounter Fred [facility]AMILTON [facility] Start: 03-01-2023 End: 03-01-2023 ambulatory Fred Oliveira Other [facility] Other Start: 03-01-2023 Nursing evaluation o f patient and report Fred Oliveira [facility] Start: 02-17-2023 End: 02-17-2023 ambulatory Keara Dunham Other [facility] Other Start: 02-17-2023 Telephone encounter Keara Kamara her [facility] Start: 11-14-2022 End: 11-14-2022 ambulatory Fred Oliveira Other [facility] Other Start: 11-14-2022 Telephone encounter Fred HAMILTON [facility] Start: 09-01-2022 End: 09-01-2022 ambulatory Fred Oliveira Other [facility] Other Start: 09-01-2022 Telephone encounter Fred HAMILTON [facility] Start: 08-31-2022 Telephone encounter Fred HAMILTON [facility] Start: 08-31-2022 End: 09-01-[address] FRED OLIVEIRA [facility] Other Start: 08-30-2022 End: 08-30-2022 ambulatory Fred Oliveira Other [facility] Other Start: 08-30-2022 Office outpatient vi sit 15 minutes Fred Oliveira [facility] Start: 06-03-2022 End: 06-03-2022 ambulatory Fred Oliveira Other [facility] Other Start: 06-03-2022 Office outpatient vi sit 15 minutes Fred Oliveira [facility] Start: 12-27-2021 End: 12-27-2021 ambulatory Pulm [facility] Work Phone: Pulmonary Medicine Comment on above: Spirometry Start: 12-27-2021 End: 12-27-2021 Patient encounter procedure Pulm Fct Lab 1 - [facility] Work Phone: [facility] Comment on above: ILD (interstitial rock ng disease) (HCC) (Primary Dx) Start: 11-01-2021 End: 11-02-[address] FRED OLIVEIRA Facility:[facility] Start: 10-27-2021 Encounter for genera l adult medical examination without abnormal findings DR FRED OLIVEIRA [facility] Start: 10-25-2021 End: 10-26-[address] FRED OLIVEIRA Facility:[facility] Start: 10-20-2021 End: 10-21-[address] FRED OLIVEIRA Facility:[facility] Start: 10-20-2021 End: 10-21-2021 Encounter for general adult medical examination without abnormal findings DR FRED OLIVEIRA Facility:[facility] Start: 10-01-2021 Adult health examination Keara Dunham Other [facility] Other Start: 09-06-2021 Refill Toñito Tai MD Work Phone: Pulmonary Medicine Comment on above: Refill Request Start: 12-07-2016 End: 12-08-2016 Ambulatory DEFAULT PHYSICIAN Facility:[facility] Procedures Date Procedure Procedure Detail Performing Clinician Start: 12-27-2021 Spmtry w/vc expirato ry екатерина w/wo mxml vol vntj Toñito Tai MD Work Phone: Start: 05-31-2017 Adult depression scr eening assessment Toñito Tai MD Work Phone: Start: 10-26-[address] Dunham Other Start: 02-28-2014 Health examination o f sub-group Keara Dunham Other Start: 06-19-2013 General examination of patient Keara Charla Other Start: 06-19-2013 History and physical examination, administrative Keara Dunham Other Depression screening Honorio Dunham Other Screening for malign ant neoplasm of breast Keara Dunham Other Plan of Treatment Date Care Activity Detail Author Start: 01-21-2024 Influenza vaccination Influenz a Vaccine (Season Ended) [facility] Start: 05-22-2023 Behavioral Health Screening Behavioral Health Screening [facility] Start: 01-20-2023 Influenza vaccination Influenza Vacc ine (#1) [facility] Start: 10-05-2022 End: 01-26-2023 LUNG DIFFUSION CAPACITY (DLCO) LUNG DIFFUSION CAPACITY (DLCO) PFT Routine ILD (interstitial lung disease) (HCC) Expected: 10/05/2022 (Approximate), Expires: 01/26/2023 [facility] Work Phone: Comment on above: Expected: 10/05/2022 (Approximate), Expires: 01/26/2023 Start: 10-05-2022 End: 01-26-2023 SPIROMETRY BASELINE ONLY SPIROMETRY BASELINE ONLY PFT Routine ILD (interstitial lung disease) (HCC) Expected: 10/05/2022 (Approximate), Expires: 01/26/2023 [facility] Work Phone: Comment on above: Expected: 10/05/2022 (Approximate), Expires: 01/26/2023 Start: 05-22-2022 Depression Assessment Depression Ass essment [facility] Start: 2022 RSV Vaccine (1 - 1-d ose 60+ series) RSV Vaccine (1 - 1-dose 60+ series) [facility] Start: 02-03-2022 PNEUMOCOCCAL (3 - PP SV23 or PCV20) PNEUMOCOCCAL (3 - PPSV23 or PCV20) [facility] Start: 02-03-2022 Pneumococcal vaccination [facility] Start: 01-20-2022 Influenza vaccination INFLUENZA (#1) [facility] Start: 09-26-2020 COVID-19 VACCINE (3 - Moderna risk 4-dose series) COVID-19 VACCINE (3 - Moderna risk 4-dose series) [facility] Start: 09-26-2020 COVID-19 VACCINE (3 - Moderna risk series) COVID-19 VACCINE (3 - Moderna risk series) [facility] Start: 05-31-2020 DIABETES SCREEN DIABETES SCREEN [facility] Start: 05-31-2020 Diabetes Screening Diabetes Screenin g [facility] Start: 05-31-2018 Adult depression screening assessment DEPRESSION SCREENING [facility] Start: 2012 SHINGRIX VACCINE (1 of 2) SHINGRIX VACCINE (1 of 2) [facility] Start: 2007 COLOGUARD (FIT-DNA) COLOGUARD (FIT-D NA) [facility] Start: 2007 Colonoscopy COLONOSCOPY [facility] Start: 2007 COLORECTAL CANCER SCREENING COLORECTAL CANCER SCREENING [facility] Start: [address] COLONOGRAPHY [facility] Start: 2007 FECAL OCCULT BLOOD FECAL OCCULT BLOO D [facility] Start: 2007 Lipid 1996 panel - S montez or Plasma Lipid Screening [facility] Start: 2007 Lipid panel Lipid Screening [facility] Start: 2007 LIPID SCREEN LIPID SCREEN [facility] Start: 2007 Screening for malign ant neoplasm of colon [facility] Start: 2007 [facility] Start: 2002 Mammography [facility] Start: 2002 Screening for malign ant neoplasm of breast Mammogram Screening [facility] Start: 1992 HPV TESTING HPV TESTING [facility] Start: 1992 Screening for malign ant neoplasm of cervix HPV Testing [facility] Start: 1983 PAP TESTING PAP TESTING [facility] Start: 1983 Screening for malign ant neoplasm of cervix Pap Testing [facility] Start: 1981 SHINGRIX VACCINE (1 of 2) SHINGRIX VACCINE (1 of 2) [facility] Start: 1981 Urine microalbumin profile [facility] Start: 1980 HEPATITIS C SCREENING HEPATITIS C [facility] Start: 1980 Hepatitis C screening Hepatitis C [facility] Start: 1980 HIV SCREENING HIV SCREENING [facility] Start: 1980 HIV screening HIV Screening [facility] SPIROMETRY BASELINE ONLY SPIROME TRY BASELINE ONLY PFT Routine Interstitial pulmonary disease (HCC) 12/27/2021 12:06 PM EDT [facility] Work Phone: [facility] Immunizations Immunization Date Immunization Notes Care Provider Sunil petty 03-01-2023 influenza, injectabl e, quadrivalent, preservative free Fred Oliveira Other [facility] [employer] [facility] Other 04-25-2022 influenza virus vaccine, split virus (incl. purified surface antigen) Keara Dunham Other [facility] Other 04-27-2021 influenza, injectabl e, quadrivalent, preservative free Toñito Tai MD Work Phone: [facility] 04-27-2021 influenza virus vaccine, unspecified formulation Toñito Tai MD Work Phone: [facility] 02-18-2020 influenza virus vaccine, split virus (incl. purified surface antigen) Keara Dunham Other [employer] [employer] [facility] Other 02-18-2020 influenza, injectabl e, quadrivalent, preservative free Toñito Tai MD Work Phone: [facility] 05-10-2019 pneumococcal polysaccharide vaccine, 23 valent Keara Dunham Other [facility] Other 03-26-2018 influenza, seasonal, injectable Toñito Tai MD Work Phone: [facility] 03-08-2017 influenza, seasonal, injectable Toñito Tai MD Work Phone: [facility] 03-08-2017 tetanus and diphther ia toxoids, adsorbed, preservative free, for adult use (5 Lf of tetanus toxoid and 2 Lf of diphtheria toxoid) Keara Dunham Other [facility] Other 02-03-2017 pneumococcal polysaccharide vaccine, 23 valent Toñito Tai MD Work Phone: [facility] 01-20-2017 influenza, seasonal, injectable Toñito Tai MD Work Phone: [facility] 12-29-2016 pneumococcal conjuga te vaccine, 13 valent Toñito Tai MD Work Phone: [facility] 12-29-2016 pneumococcal Conjuga te, unspecified formulation; Translations: [Need for prophylactic vaccination against Streptococcus pneumoniae (pneumococcus)] Keara Dunham Other [facility] Other 03-15-2015 influenza, seasonal, injectable, preservative free Toñito Tai MD Work Phone: [facility] 02-28-2014 diphtheria, tetanus toxoids and acellular pertussis vaccine, unspecified formulation Keara Dunham Other [facility] Other Payers Date Payer Category Payer Private Health Insurance [facility] [employer] [id number] 2009-Present [phone] [address] [address] [place] [address] PPO [id number] 2009 Private Health Insurance [id number] 1962 Unknown [id number] 1962 Unknown [id number] 1962 Unknown [id number] 1962 Unknown [id number] 1959 Unknown [id number] 1959 Unknown [id number] Unknown Social History Date Type Detail Facility Start: 02-02-2017 End: 12-27-2021 Tobacco smoking status NHIS Never smoked tobacco [facility] Start: 02-02-2017 End: 12-27-2021 Tobacco use and exposure Smokeless tobacco non-user [facility] Start: 1960 Sex Assigned At Not on file [facility] Start: 12-17-2021 End: 12-27-2021 Exposure to SARS-CoV-2 (event) Not sure [facility] Work Phone: Start: 12-27-2021 End: 10-03-2022 Sex Assigned At [facility] Other Start: 12-27-2021 End: 10-03-2022 History of Social function [facility] National Score (1-10 0), lower number is lower risk 87 [facility] Start: 08-19-2019 Sexual orientation Heterosexual (finding) [facility] Clinical Notes 02-20-2017 to 03-05-2024 Note Date & Type Note Facility 03-05-2024 Note [place] [facility] - [facility] Subjective Moose Jacinto is a 63 y.o. 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 She had loop recorder implanted in December 2023. She denies any chest pain at rest or with exertion. She admits dyspnea with climbing stairs at times. She does not exercise on regular basis. She denies orthopnea or paroxysmal nocturnal dyspnea or dizziness or palpitations or legs edema. She reports that her PCP changed her blood pressure medication recently because she had headache on lisinopril and started her and Telmisartan and she is doing better and her blood pressure looks better. Patient never been a smoker, she denies hyperlipidemia or diabetes mellitus. She states that her mother had HI at age 70 and her sister had HI at age 60. ROS All systems were reviewed and they were negative except for the positive findings noted above in the history Past Medical History: Diagnosis Date Aneurysm (CMS/HCC) Hypertension Past Surgical History: Procedure Laterality Date CEREBRAL ANEURYSM REPAIR Family History Problem Relation Name Age of Onset Heart attack Mother Atrial fibrillation Sister Stroke Sister Allergies No Known Allergies Medications Current Outpatient Medications: amLODIPine (Norvasc) 5 mg tablet, Take 1 tablet (5 mg) by mouth once daily as directed. (Patient taking differently: Take 2.5 mg by mouth once daily as directed.), Disp: 90 tablet, Rfl: 3 aspirin 81 mg chewable tablet, Chew 1 tablet (81 mg) once daily as directed., Disp: 90 tablet, Rfl: 3 bisoprolol (Zebeta) 5 mg tablet, Take 5 mg by mouth in the morning., Disp: , Rfl: mycophenolate (Cellcept) 500 mg tablet, Take 1,000 mg by mouth in the morning., Disp: , Rfl: telmisartan (MIcarDIS) 20 mg tablet, Take 20 mg by mouth in the morning., Disp: , Rfl: hydroxychloroquine (Plaquenil) 200 mg tablet, Take 200 mg by mouth in the morning., Disp: , Rfl: iron polysaccharides (Nu-Iron,Niferex) 150 mg iron capsule, TAKE 1 CAPSULE BY MOUTH EVERY OTHER DAY, Disp: , Rfl: lisinopril 20 mg tablet, Take 40 mg by mouth in the morning., Disp: , Rfl: Objective Visit Vitals BP 148/82 (BP Location: Left arm, Patient Position: Sitting) Pulse 86 Ht 1.511 m (4' 11.5 ) Wt 55.8 kg (123 lb) SpO2 98% BMI 24.43 kg/m??? OB Status Postmenopausal Smoking Status Never Assessed BSA 1.53 m??? Physical exam: GENERAL: alert and oriented x3, well developed, in no acute distress. HEAD: atraumatic, normocephalic. EYES: AMY, EOMI. NECK: trachea midline, no JVD present, no carotid bruits present. CARDIAC: S1, S2 present. RRR. No murmur, rubs, or gallops. RESPIRATORY: CTAB, no increased effort of breathing, no rales, rhonchi, or wheezing. ABDOMEN: soft, nontender, nondistended. EXTREMITIES: no lower extremity edema. No rash/skin discoloration present. NEURO: strength/sensation equal and symmetric in bilateral upper and lower extremities. PSYCH: appropriate mood, affect, and judgement. Recent Labs Labs 12/04/2023 White blood count 6.6, hemoglobin 10.7, hematocrit 34.3, platelets 204 Creatinine 0.9, GFR above 60, Total bilirubin 0.2, AST 14, ALT 20, alk phos 93, albumin 3.9 Labs from 05/06/2023 sodium 140, potassium 4.9 BUN 14, creatinine 0.97, GFR above 60, glucose 88, calcium 9.4 HbA1c seat 6% Triglyceride 41, cholesterol 221, LDL 121, HDL 92 TSH Imaging and other tests EK03/08/2023 showed sinus rhythm EKG October 2020 showed atrial fibrillation with rapid ventricular rate 130 bpm Echo: 04/04/2023 Stress test: Cardiac cath: Event Monitor:03/08/2023 Cardiac MRI: CX ray: Assessment/Plan Palpitation, Status post loop recorder 01/04/2024 as previous 30-day event monitor did not show any A-fib Loop recorder showed events of supraventricular tachycardia not clear if it is A-fib/flutter or atrial tachycardia as well as episodes of ventricular tachycardia, samples of them placed down Paroxysmal atrial fibrillation, diagnosed 2020, never been started on aspirin or DOAC Raynaud's phenomena without gangrene Primary hypertension History of cerebral aneurysm and h/o arachnoid hemorrhage due to ruptured aneurysm Pure hypercholesterolemia noted on previous labs but the patient is not a (more content not included)... [facility] 01-04-2024 Note LOOP IMPLANT PROCEDU RE NOTE DATE OF PROCEDURE: 01/04/24 PERFORMING PHYSICIAN: Dr. Maxwell Marshall PERIODICALS LIBRARY ASSISTANT: JOHN INDICATIONS FOR PROCEDURE: 1. SVT/AF surveillance CONSENT: Patient LOCATION: EP lab PROCEDURAL SEDATION: None FLUOROSCOPY TIME: 0min PREPARATION: Preoperative antibiotics was administered. EBL:5cc SPECIMEN REMOVED: None PROCEDURES PERFORMED: 1. LOOP implant PROCEDURE NOTE: Patient was brought to the EP lab in the post absorptive state. A procedural pause was performed verifying the patient, the procedure. Sterile prep and drape were performed over the left precordium and anesthesia with 1% lidocaine was followed by a small incision was made in the 3rd intercostal space near the sternum on the left using the [employer] tool. The loop recorder was then injected subcutaneously and noted to have good sensing parameters. Technical details of the device as noted below. The skin was then closed with 3-0 absorbable monofilament suture and glue applied to hold the edges together. Tegaderm was applied to cover the wound. The patient appeared to tolerate the procedure well and was returned to the room in stable condition. No complications were immediately observed. Sensin.25 mV. IMPRESSION: Successful placement of LOOP implant with excellent sensing parameters. COMPLICATIONS: None RECOMMENDATIONS: 1. Occlusive dressing to be changed after 7 days. 2. Do not wet the incision. Maxwell Marshall MD Cardiac Electrophysiology. [facility] 12-05-2023 Note [facility] Consult Note 12/05/23 [...] And Rhythm: regular (more content not included)... [facility] 07-19-2023 Evaluation note Encounter Date Diagnosis Assessment Notes Jun, Solitary pulmonary nodule (ICD-10 - R91.1) PULMONARY NODULE [facility] Other 01-16-2024 Note[facility] Electrophysiology Consult Note Reason for visit: new pt, hx afib Date of Telehealth Visit: 06/06/23 The patient was notified that using 3rd alliance party telecommunication application (e.g., [employer]) is not HIPPA compliant and may carry some privacy risks. Yes The visit was conducted [id number] with the use of audio and video technology Doxy.me between patient and provider for a virtual [...] Diagnostic Imaging: No i (more content not included)...[facility]01-16-2024 NoteTelephone call for follow up BP and [...] palpitations. All other systems reviewed and are negative.[facility] 05-09-2023 NotePatient here for follow up echo and event monitor. Says PCP doubled her lisinopril last week for hypertension. Review of Systems Constitutional: Positive for malaise/fatigue. Cardiovascular: Positive for dyspnea on exertion (with episodes of palpitations) and palpitations. Neurological: Positive for light-headedness (with episodes of palpitations). All other systems reviewed and are negative.[facility] 05-09-2023 NoteUT Electrophysiology Consult Note Reason for [...] angiogram: @CATH@ Diagnostic Im (more content not included)...[facility] 05-01-2023 Evaluation note* Encounter Date Diagnosis Assessment [...] patient has been prescribed ASA thearpy by [facility] Cardiol[facility] while awaiting her holter monitor results. They are maintaining regular scheduled appts with their clothing consultant. 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 Use w/ spacer. [facility] Other 04-12-2023 Evaluation note* Encounter Date Diagnosis Assessment Notes Treatment Notes Treatment Clinical Notes Aug, Dysuria (ICD-10 - R30.0) [facility] Other 04-12-2023 Evaluation note* Encounter Date Diagnosis Assessment Notes Treatment Notes Treatment Clinical Notes Aug, Pyuria (ICD-10 - R82.81) [facility] Other 04-11-2023 Evaluation note* Encounter Date Diagnosis Assessment Notes Treatment Notes Treatment Clinical Notes Aug, Acute non intractabl e tension-type headache (ICD-10 - G44.209) Rest, hydrate, Tylenol. Aug, Nausea (ICD-10 - R11.0) Diet instructions, hydrate Zofran as needed Aug, Hypertension (ICD-10 - I10) This patient is instructed to consume a healthy, low-fat, low-salt diet. They are also encouraged to continue exercise to achieve/maintain a normal BMI. 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 Author Type: Physician Type: Progress Notes Filed: 12/27/2021 1:08 PM Note Text: Respiratory [place] Moose Jacinto is a 61 year old year old female here for a follow up with the [facility] Interstitial Lung Disease Team. Today: Returns today [...] Toñito Tai MD December 27, 2021 1:[facility] NoteHNO ID: [id number] Author: Lizette Roldan, BOOSTER OPERATOR Service: ? Author Type: Registered Resp Therapist Type: Progress Notes Filed: 12/27/2021 12:30 PM Note Text: PULM FUNCTION SMARTBLOCK: Provider: Toñito Tai MD Spirometry: 1 DLCO[facility] Instructions* Patient Instructions* Toñito Tai MD - 12/27/2021 1:04 PM EDT - continue mycophenolate 2 tablets daily - return in 9 months with breathing tests [facility] History of Present illness Narrative* Toñito Tai MD - 12/27/2021 12:38 PM EDT Images from the original note were not included. Respiratory [place] Moose Jacinto is a 61 year old year old female here for a follow up with the [facility] Interstitial Lung Disease Team. Today: Returns today [...] Need Monitoring: Diagnosis ILD (interstitial lung disease) ([facility]) Priority: A Overview Note: 57 [...] 27, 2021 1:07 PM documented [facility] History of Present illness Narrative* Lizette Roldan RRT - 12/27/2021 12:29 PM EDT PULM FUNCTION SMARTBLOCK: Provider: Toñito Tai MD Spirometry: 1 DLCO: 1 documented in [facility]Hol[facility]12-16-2021 NoteHNO ID: [id number] Author: Toñito Tai MD Service: ? Author Type: Physician Type: Progress Notes Filed: 05/07/2021 7:09 AM Note Text: Respiratory [place] Moose Jacinto is a 61 year old year old female here for a follow up with the [facility] Interstitial Lung Disease Team. Today: Returns today [...] not in our system (done locally in [place]); She wasn't informed of any abnormalities in [...] None Other records ASSESSMENT Systemic sclerosis (U3 APPLICATIONS SALES REPRESENTATIVE antibody positive) ILD (NSIP) GERD Arthralgias Essential HTN 61F (more content not included)...[facility]12-16[facility]21 NoteHNO ID: [id number] Author: RT Venita(R) Service: ? Author Type: Parts Interpreter Type: Progress Notes Filed: 05/06/2021 12:07 PM [...] PERIPHERAL IV DATA: Not applicable SIGNED BY: RT Venita(R) May 06, 2021 12:07 [facility]12-16-2021 NoteHNO ID: [id number] Author: Bull Veliz RRT Service: ? Author Type: Registered Resp Therapist Type: Progress Notes Filed: 05/06/2021 11:53 AM Note Text: PULM FUNCTION SMARTBLOCK: Provider: Toñito Tai MD Assisting Tech: Julia Ewing RRT Spirometry: 1 DLCO: 1 System: [id number] NotePro[facility] (PULLMN) OPHELIAMOOSE Russo ([id number]) 1960 F Date Time Provider Department 05/06/21 11:15 AM PULM FCT LAB MAIN 4 PULLMN During your visit today, we recorded the following information about you: Bull Veliz RRT 05/06/2021 11:53 AM Signed PULM FUNCTION SMARTBLOCK: Provider: Toñito Tai MD Assisting Tech: Julia Ewing, BOOSTER OPERATOR Spirometry: 1 DLCO: 1 System: [id number] Referring Provider: TOÑITO GERMAN [[id number]] Allergies As of Date: 05/06/2021 Noted Allergy Reaction AMOXICILLIN 02/02/2017 14 - Other: See Comments Comments: Causes patient to be severely cold IODINE 10/08/2012 16 - Unknown SULFA (SULFONAMIDE ANTIBIOTICS) 03/01/2013 16 - Unknown Date Reviewed: 05/04/2020 Reviewed by: Kacie Stokes - Fully Assessed Reason for Visit: Spirometry [191] Primary Visit Diagnosis:ILD (interstitial lung disease) ([facility]) [J84.9] Order(s):SPIROMETRY BASELINE ONLY [[id number]] Order #: [id number]. #:[id number]: 1 Prescriptions as of 05/06/2021 - mycophenolate [...] As Of Date 05/06/2021 Noted Resolved Scleroderma ([facility]) [M34.9] 02/20/2017 NSIP (nonspecific interstitial pneumonia) ([facility])*02/20/2017 08/19/2019 Anti-APPLICATIONS SALES REPRESENTATIVE antibodies present [R76.8] 02/20/2017 Positive antinuclear antibody [R76.8] 02/20/2017 ILD (interstitial lung disease) ([facility]) [J84.9] 06/02/2017 Pain of both shoulder joints [M25.511, M25.512] 06/02/2017 Encounter Status:Closed by BULL VELIZ on 05/06/21[facility] 05-06-[facility] NoteProcedure (PULLMN) MOOSE JACINTO ([id number]) 1960 F Date Time Provider Department 05/06/21 11:00 AM PULM FCT LAB MAIN 4 PULLMN During your visit today, we recorded the following information about you: Referring Provider: TOÑITO GERMAN [[id number]] Allergies As of Date: 05/06/2021 Noted Allergy Reaction AMOXICILLIN 02/02/2017 14 - Other: See Comments Comments: Causes patient to be severely cold IODINE 10/08/2012 16 - Unknown SULFA (SULFONAMIDE ANTIBIOTICS) 03/01/2013 16 - Unknown Date Reviewed: 05/04/2020 Reviewed by: Kacie Stokes - Fully Assessed Reason for Visit: Spirometry [191] Primary Visit Diagnosis:ILD (interstitial lung disease) ([facility]) [J84.9] Order(s):LUNG DIFFUSION CAPACITY (DLCO) [[id number]] Order #: [id number]. #[id number]: [id number] Prescriptions as of 05/06/2021 - mycophenolate [...] 02/20/2017 NSIP (nonspecific interstitial pneumonia) (HCC)*02/20/2017 08/19/2019 Anti-APPLICATIONS SALES REPRESENTATIVE antibodies present [R76.8] 02/20/2017 Positive antinuclear antibody [R76.8] 02/20/2017 ILD (interstitial lung disease) (HCC) [J84.9] 06/02/2017 Pain of both shoulder joints [M25.511, M25.512] 06/02/2017 Encounter Status:Closed by BULL VELIZ on 05/06/21[facility] 02-20-2017 History of Past illness Narrative* Problem Noted Date Resolved Date NSIP (nonspecific interstitial pneumonia) 201608/19/2019 documented as of this encounter (statuses as of 09/06/2021) [facility]10-02-2017 History of Past illness Narrative* Problem Noted Date Resolved Date NSIP (nonspecific interstitial pneumonia) 201608/19/2019 documented as of this encounter (statuses as of 12/27/2021) [facility]10-[facility]-2017 History of Past illness Narrative* Problem Noted Date Resolved Date NSIP (nonspecific interstitial pneumonia) 201608/19/2019 documented as of this encounter (statuses as of 12/27/2021) [facility] History of Past illness Narrative* Problem Noted Date Diagnosed Date Resolved Date NSIP (nonspecific interstitial pneumonia) 02/20/2017 08/19/2019 documented as of this encounter (statuses as of 03/28/2023) [facility] note* Diagnosis Interstitial pulmonary disease (HCC) Postinflammatory pulmonary fibrosis documented in this encounter [facility] note* Diagnosis ILD (interstitial lung disease) (HCC)- Primary Postinflammatory pulmonary fibrosis documented in this encounter [facility] note* Diagnosis Interstitial pulmonary disease (HCC)- Primary Postinflammatory pulmonary fibrosis documented in this encounter [facility] noteNo InformationNort Pure [employer] Other [employer] general Narrative - Reported* Type Description Date [...] repair Surgical History EGD Surgical History colonoscopy [facility] Other History general Narrative - Reported* Type [...] History colonoscopy Hospitalization History see surgical history [facility] Other History general Narrative - Reported* Type [...] colonoscopy 2020 Hospitalization History see surgical history [facility] Other Reason for referral (narrative)* Outpatient Procedure (Routine) - Authorized Specialty Diagnoses / Procedures Referred By Contac t Referred [facility] Diagnoses ILD (interstitial lung disease) (HCC) Procedures LUNG DIFFUSION CAPACITY (DLCO) DIFFUSING CAPACITY Toñito German MD [address] [place], [place] [id number] [place] [place] [address] Referral ID Status Reason Start Date Expiration Date Visits Requested Visits Authorized [id number] Authorized Auto-Generat ed Referral 10/05/2022 01/26/2023 1 1 * Outpatient Procedure (Routine) - Authorized Specialty Diagnoses / Procedures Referred By Contac t Referred [facility] Diagnoses ILD (interstitial lung disease) ([facility]) Procedures SPIROMETRY BASELINE ONLY SPMTRY W/VC EXPIRATORY ЕКАТЕРИНА W/WO MXML VOL VNTJ Toñito German MD [address] [place] [id number] [facility] [address] [place] [address] Referral ID Status Reason Start Date Expiration Date Visits Requested Visits Authorized [id number] Authorized Auto-Generat ed Referral 10/05/2022 01/26/2023 1 1 [facility] Summary Purpose Family History No Family History [...] and content) DATE CREATED AUTHOR 11/15/2017 [facility] DATE CREATED AUTHOR AUTHOR'S ORGANIZ ATION 07/08/2021 [facility] DATE CREATED AUTHOR AUTHOR'S ORGANIZ ATION 12/27/2021 [facility] DATE CREATED AUTHOR AUTHOR'S ORGANIZ ATION 09/06/2022 [facility] DATE CREATED AUTHOR AUTHOR'S ORGANIZ ATION 03/18/2024 [facility] Source Comments (unrecognize d section and content) In the event this informatio n is protected by the Federal Confidentiality of Alcohol and Drug Abuse Patient Records regulations: The Federal rules restrict any use of the information to criminally investigate or prosecute any alcohol or drug abuse patient.[facility] the event this information is protected by the Federal Confidentiality of Alcohol and Drug Abuse Patient Records regulations: The Federal rules restrict any use of the information to criminally investigate or prosecute any alcohol or drug abuse patient.[facility] Hospital[facility] the event this information is protected by the Federal Confidentiality of Alcohol and Drug Abuse Patient Records regulations: The Federal rules restrict any use of the information to criminally investigate or prosecute any alcohol or drug abuse patient.[facility] the event this information is protected by the Federal Confidentiality of Alcohol and Drug Abuse Patient Records regulations: The Federal rules restrict any use of the information to criminally investigate or prosecute any alcohol or drug abuse patient.[facility] Hospital[facility] the event this information is protected by the Federal Confidentiality of Alcohol and Drug Abuse Patient Records regulations: The Federal rules restrict any use of the information to criminally investigate or prosecute any alcohol or drug abuse patient.[facility] Hospital[facility] the event this information is protected by the Federal Confidentiality of Alcohol and Drug Abuse Patient Records regulations: The Federal rules restrict any use of the information to criminally investigate or prosecute any alcohol or drug abuse patient.[facility] Reason for Visit (unrecogniz ed section and content) Reason Onset Date Comments Refill Request 09/06/2021 Reason Comments Spirometry Specialty Diagnoses / Procedures Referred By Ligia reeder Referred To [facility] Diagnoses Interstitial pulmonary disease (HCC) Procedures SPIROMETRY BASELINE ONLY SPIROMETRY WO BRONCHODILATOR Toñito German MD [address] [place] [address] Respiratory [facility] [address] [place] [address] Referral ID Status Reason Start Date Expiration Date V isits Requested Visits Authorized [id number] Closed Auto-Generate d Referral 08/04/2021 06/05/2022 1 1 Reason Comments Recheck Specialty Diagnoses / Procedures Referred By Ligia reeder Referred To Contact Pulmonary Disease / PULMONARY MEDICINE Diagnoses ILD Procedures OFFICE/OUTPATIENT ESTABLISHED MOD MDM 30-39 MIN RI EST ILD Self, Toñito Sanders MD [address] [place] [address] Referral ID Status Reason Start Date Expiration Date Visits Re quested Visits Authorized [id number] Closed 05/22/2021 05/21/2022 1 1 Specialty Diagnoses / Procedures Referred By Ligia t Referred To [facility] Diagnoses Interstitial pulmonary disease (HCC) Procedures LUNG DIFFUSION CAPACITY (DLCO) DIFFUSING CAPACITY Toñito German MD [address] [place] [address] Res[facility] [address] [place] [address] Referral ID Status Reason Start Date Expiration Date V isits Requested Visits Authorized [id number] Closed Auto-Generate d Referral 08/04/2021 06/05/2022 1 1 Reason Comments Refill Request Care Teams (unrecognized sec tion and content) Ct Mri Technologist Relationship Specialty Start Date End Date Fred Oliveira DO PCP - General Internal Medicine 02/28/13 Nikita Cain Rheumatology 01/09/17 Ct Mri Technologist Relationship Specialty Start Date End Date Fred Oliveira DO PCP - General Internal Medicine 02/28/13 Nikita Cain Rheumatology 01/09/17 Ct Mri Technologist Relationship Specialty Start Date End Date Fred Oliveira DO PCP - General Internal Medicine 02/28/13 Nikita Cain Rheumatology 01/09/17 Ct Mri Technologist Relationship Specialty Start Date End Date Fred Oliveira DO PCP - General Internal Medicine 02/28/13 Nikita Cain Rheumatology 01/09/17 Ct Mri Technologist Relationship Specialty Start Date End Date Fred Oliveira DO PCP - General Internal Medicine 02/28/13 Nikita Cain Rheumatology 01/09/17 Ct Mri Technologist Relationship Specialty Start Date End Date Fred Oliveira SylvieDO PCP - General Internal Medicine 02/28/13 Nikita [...] BE BASED ON THE PRIMARY CLINICAL RECORDS. [employer] provides no warranty or guarantee of the accuracy or completeness of information in this document.
--- NOTE | 2024-03-20 12:04 | CT_ITS ---
The [address] [address] Patient Name: ISABELA JACINTO MRN: [id number] date: 1960 Sex: F Assigned Patient Location: CT Current Patient Location: CT Accession/Order Number: [id number] Exam Date: 03/20/2024 13:00 Report Date: 03/20/2024 13:34 At the request of: EHSAN WORLEY Procedure: CT head/brain wo/w con EXAMINATION: CT head/brain wo/w con HISTORY: Cerebral Aneurysm, Subarachnoid Hemorrhage COMPARISON: CT head without contrast 08/14/2023 TECHNIQUE: Axial CT images were obtained without IV contrast. Dose reduction techniques were achieved by using automated exposure control and/or adjustment of mA and/or kV according to patient size and/or use of iterative reconstruction technique. FINDINGS: BRAIN: Stable aneurysm clip within medial left temporal fossa. Mild septal malacic changes involving the anterior tip of the left temporal lobe. Normal appearance and enhancement of the remainder the brain. No appreciable vascular abnormality. CSF SPACES: No hydrocephalus, subarachnoid hemorrhage, or mass. Appropriate for age. SKULL: Prior left frontoparietal craniotomy and plate replacement, secured with several screws and metallic plates. SINUSES: No significant mucosal thickening or fluid on the limited views. ORBITS: No appreciable abnormality on the limited views. OTHER: Negative CT/CT head/brain wo/w con IMPRESSION: 1. No acute findings. 2. Stable temporal fossa aneurysm clip and mild encephalomalacic changes of the left temporal lobe and surgical changes of the anterior left calvarium. Electronically authenticated by: SCAR BUCIO Date: 03/20/2024 13:34
== END 2024-03-20 09:26 | disposition home or self-care (01) ==
LOC: CT 09:25
PROVIDERS: PCP Internal Medicine; Visit Provider Internal Medicine Cardiovascular Disease
DX: I67.1 Cerebral aneurysm, nonruptured (principal); I60.9 Nontraumatic subarachnoid hemorrhage, unspecified
CPT/HCPCS: 70470; Q9967

== ENCOUNTER 2024-05-23 11:23 | Outpatient (OUT) | payer OTHER, SELFPAY ==
--- OUTSIDE RECORDS SUMMARY | 2024-05-23 11:38 | XMS_ITS | CCD ---
Author Organization [facility] Care Team Providers Care Mill Platform Supervisor Name Role Phone PHYSICIAN, DEFAULT Unavailable Unavailable [...] BALL, DR MG Consulting Unavailable ZIEBER, DR SCAR San Consulting Unavailable ОЛЬГА, DR COBB Consulting Unavailable Keara Dunham Unavailable Fred Oliveira DO Primary Care Provider Nikita Cain Unavailable Fred Oliveira DO Primary Care Provider EHSAN BENZ Attending Unavailable EHSAN BENZ Attending Unavailable MARISSAMAXWELL Attending Unavailable MARISSAMAXWELL Attending Unavailable MAXWELL MARSHALL Attending Unavailable EHSAN BENZ Referring Unavailable MAXWELL MARSHALL Referring Unavailable GERONIMOMANISHA Referring Unavailable MAXWELL MARSHALL Referring Unavailable MAXWELL MARSHALL Referring Unavailable PONDJOANNA Referring Unavailable EHSAN BENZ Admitting Unavailable EHSAN BENZ Attending Unavailable MAXWELL MARSHALL Admitting Unavailable MAXWELL MARSHALL Attending Unavailable MAXWELL MARSHALL Attending Unavailable Allergies Allergy Classification Reported Allergen(s) Allergy Type Date of Onset Reaction(s) Facility (7 sources) Amoxicillin Drug Allergy 02-03-20 17 Other: See Comments [facility] (7 sources) Iodine Drug Allergy 10-09-19 13 Unknown [facility] (7 sources) Sulfonamides (Antibiotic) Drug Allergy 03-01-20 13 Unknown [facility] (18 sources) Penicillins (Antibiotic) Propensity to adverse reactions Unknown [employer] [facility] [employer] Other (18 sources) sulfADIAZINE Drug Allergy Unknown [facility] Other (18 sources) Radiology DYE Propensity to adverse reactions Unknown [facility] [employer] Other (1 source) Amoxicillin Drug Allergy 02-20-20 13 [facility] (1 source) Iodine (And Iodine Containting Drugs) Drug allergy (disorder) 10-09-19 13 [facility] (1 source) Sulfonamides (Antibiotic) Drug allergy (disorder) 03-01-20 13 [facility] (12 sources) Penicillin G Benzathine & Proc Drug allergy Unknown [facility] [employer] Other (5 sources) patient allergy list reviewed by nurse or physicia Propensity to adverse reactions 01-18-20 18 Comment:Done [facility] [employer] Other (12 sources) Cont[employer] *MEDICAL DEVICES AND SUPP Propensity to adverse reactions Comment:IVP DYE [facility] [employer] Other (1 source) IODINATED CONTRAST MEDIA; Translations: [IODINATED CONTRAST MEDIA] Propensity to adverse reactions to drug (disorder) 03-20-20 24 [facility] Repository Medications Current Medications Medication Drug Class(es) Dates Sig (Normalized) Sig (Original) [id number] 200 actuat albuterol 0.09 mg/actuat metered dose [...] on above: Take 2 tablets by mo [facility] once daily. fluticasone propionate 0.05 mg/actuat metered dose nasal spray (15 sources) Corticosteroid take 1 spray(s) nasal route once daily Fluticasone Propionate 50 MCG/ACT 1 spray in each nostril Nasally Once a day Active hydroCHLOROthiazide 25 mg oral tablet (7 sources) Thiazide Diuretic take 1 tablet by mouth once daily hydroCHLOROthiazide (HYDRODIURIL, ESIDRIX) 25 mg tablet Take 25 mg by mouth once daily. Active Comment on above: Take 25 mg by mouth once daily. hydroxychloroquine sulfate 200 mg oral tablet (13 sources) Antimalarial, Antirheumatic Agent Start : 05-31 take 1 tablet by mouth once daily hydroxychloroquine (PLAQUENIL) 200 mg tablet Take 1 tablet by mouth once daily. 4 05/31/2017 Active Comment on above: [facility]. lisinopril 20 mg oral tablet (20 sources) Angiotensin Converting Enzyme Inhibitor Start : 03-24 take 1 tablet by mouth once daily lisinopril (ZESTRIL, PRINIVIL) 20 mg tablet Take 20 mg by mouth once daily. 03/24/2021 Active Start: 07-17-2019 take 1 tablet by [place] [facility] once daily lisinopril (ZESTRIL, PRINIVIL) 10 mg tablet Take 1 tablet by mouth once daily. 07/17/2019 Active Lisinopril 40 MG TAKE 1 TABLET BY MOUTH DAILY Orally Once a day Active Comment on above: Take 1 tablet by [facility] once daily. Take 20 mg by mouth once daily. mycophenolate mofetil 500 mg oral tablet (20 sources) Start: 3 End: 4 take 2 tablets by mouth once daily mycophenolate Mofetil (CELLCEPT) 500 mg tablet Take 2 tablets by mouth once daily. 60 tablet 5 04/30/2024 Active Start: 05-06-2021 End: 12-27-2021 take 2 tablets by mouth once daily mycophenolate Mofetil (CELLCEPT) 500 mg tablet Take 2 tablets by mouth once daily. 60 tablet 5 12/27/2021 Active take 1 tablet by [place] every twelve hours CellCept 500 MG 1 tablet Orally Twice a day Active Comment on above: Take 2 tablets by mo [facility] once daily. take 2 tablets by mo [facility] every day 24 hr NIFEdipine 60 mg extended release oral tablet (7 sources) Dihydropyridine Calcium Channel Alison Start: 020 take 1 tablet by mouth once daily NIFEdipine XL (ADALAT CC, PROCARDIA XL) 60 mg 24 hr tablet Take 1 tablet by mouth once daily. 06/26/2019 Active Comment on above: Take 1 [...] 3 11/27/2016 Active take 1 capsule by [facility] every other day Polysaccharide Iron Complex 150 [...] days Mar, Not-Taking/PRN take 1 capsule by [facility] every eight hours Benzonatate 200 MG 1 capsule as needed Orally Three times a day Not-Taking doxycycline hyclate 100 mg oral capsule (13 sources) Tetracycline-class Drug Start: 03-31-2023 take 1 capsule by mouth every twelve hours Doxycycline Hyclate 100 MG 1 capsule Orally Twice a day for 7 days Mar, Not-Taking/PRN Start: 06-03-2022 take 1 capsule by [facility] twice daily Doxycycline Hyclate 100 MG [...] anxiety disorder; Translations: [Generalized anxiety disorder] Chronic Aortic; peripheral; and visceral artery aneurysms (2 sources) Aneurysm of unspecified site; Translations: [Aneurysm of unspecified site] Onset: 3 Chronic Cardiac dysrhythmias (20 sources) Paroxysmal atrial fibrillation; Translations: [Paroxysmal atrial fibrillation] Onset: 4 Chronic Cardiac dysrhythmias (2 sources) Palpitations; Translations: [Palpitations] Onset: 3 Episodic Deficiency and other anemia (18 sources) Anemia of chronic disease; Translations: [Anemia in other chronic diseases classified elsewhere] Chronic Deficiency and other anemia (20 sources) Anemia; Translations: [Anemia, unspecified] Episodic Deficiency and other anemia (1 source) Anemia, unspecified; Translations: [Anemia] Episodic Diabetes mellitus without complication (20 sources) Impaired fasting glycemia; Translations: [Impaired fasting glucose] Episodic Disorders of lipid metabolism (2 sources) Pure hypercholesterolemia, unspecified; Translations: [Pure hypercholesterolemia, unspecified] Onset: 4 Chronic E Codes: Adverse effects of medical drugs [...] unspecified] Chronic Other aftercare (1 source) Other terminal operator (current) drug therapy Episodic Other and ill-defined [...] gangrene] Chronic Other circulatory disease (2 sources) Personal history of other diseases of the circulatory system; Translations: [Personal history of other diseases of the circulatory system] Onset: 4 Episodic Other hereditary and degenerative nervous system conditions [...] pulmonary diseases] Chronic Other lower respiratory disease (3 sources) Interstitial pulmonary disease, unspecified; Translations: [Interstitial pulmonary disease, unspecified] Onset: 3 Chronic Other lower respiratory disease (20 sources) [...] unspecified; Translations: [Cough, unspecified] Unclassified (1 source) Supraventricular tachycardia, unspecified; Translations: [Supraventricular tachycardia, unspecified] Onset: 4 Unclassified (1 source) Ventricular tachycardia, [...] and screening for infectious disease (20 sources) MEDICAL TRANSCRIPTION RADIOLOGY antibody positive; Translations: [Other specified abnormal immunological [...] Onset: 8 Episodic Other lower respiratory disease (20 sources) Nonspecific interstitial pneumonia; Translations: [Other specified interstitial pulmonary diseases] Onset: 7 Resolved: 0 08-19-2019 Chronic Other lower respiratory disease (11 sources) Disorder of lung; Translations: [Other disorders of lung] Onset: 8 Episodic Other lower respiratory disease (1 source) Other disorders of lung; Translations: [Other disorders of lung] Onset: 8 Episodic Other non-traumatic joint disorders (7 sources) Bilateral shoulder joint pain; Translations: [Pain [...] and Corynebacterium diphtheriae antigens (medicinal product); Translations: [Yowiyuuxis-etmppel-qa rtussis, combined [DTP] [DtaP]] Onset: 4 Unclassified (1 source) Routine general medical examination at health care facility; Translations: [Routine general medical examination at health care facility] Onset: 4 Unclassified (1 source) Qkyvlkabpy-eviqrcn-rav tussis, combined [DTP] [DtaP]; Translations: [Btlbldukig-wxaatpc-dr rtussis, combined [DTP] [DtaP]] Onset: 4 Unclassified [...] defined subpopulation] Onset: 4 Unclassified (1 source) Supraventricular tachycardia, unspecified; Translations: [Supraventricular tachycardia, unspecified] Onset: 4 Unclassified (1 source) Ventricular tachycardia, unspecified; Translations: [Ventricular tachycardia, unspecified] Onset: 4 Viral infection (11 sources) Viral disease; Translations: [Unspecified viral infection, in conditions classified elsewhere and of unspecified site] Onset: 7 Episodic Viral infection (18 sources) COVID-19; Translations: [COVID-19] Results Test Name Value Interpretation Reference Range Facility Office Visiton 11-26-2024 Follow-up visit [id number] Lili Jacinto [place] 1960 Date Provider Department Center 04/16/2024 ScarlettMAXWELL COOLEY OLIVERIO Spangler Family History Problem Relation Age of Onset Heart attack Mother Atrial fibrillation Sister Stroke Sister Family Status - Relation Status Age at Mother Sister Level of Service:73462 [place] OFFICE/OUTPATIENT ESTABLISHED MOD MDM 30 MIN Reason for Visit and Comments: Follow-up [766859] Normal [facility] Orders Onlyon 04-16-2024 Orders Only [id number] Lili Jacinto glenys [place] 1960 Date Provider Department Center 04/16/2024 REAL MIRELES OLIVERIO Spangler Family History Problem Relation Age of Onset Heart attack Mother Atrial fibrillation Sister Stroke Sister Family Status - Relation Status Age at Mother Sister Normal [facility] 36on 03-28-2024 36 Patient called back yesterday after her apt to confirm she is taking amlodipine 2.5mg and bisoprolol 10mg daily. She is NOT taking telmisartan. Per Dr. Benz- patient advised to increase amlodipine to 5mg daily. She verbalized understanding. Normal [facility] Office Visiton 03-27-2024 Follow-up visit [id number] Lili Jacinto [place] 1960 Date Provider Department Center 03/27/2024 [id number] KIRK OLIVERIO Spangler Family History Problem Relation Age of Onset Heart attack Mother Atrial fibrillation Sister Stroke Sister Family Status - Relation Status Age at Mother Sister Level of Service:97709 [place] OFFICE/OUTPATIENT ESTABLISHED MOD MDM 30 MIN Reason for Visit and Comments: S/P CARDIAC CATH [Other] - ??? Normal coronary arteries ??? Normal LVEDP, no evidence of aortic stenosis Hypertension [233796] Atrial Fibrillation [80] Normal [facility] HPon 2024 ---- -------- Attestation signed by Ehsan Benz MD at 2024 1:38 PM I personally saw and examined the patient on the same date of service as resident/fellow Dr house. I discussed the findings and therapeutic plan with the resident/fellow Dr house. I agree with the documentation, except for any edits/updates below. Teaching Physician's Revisions: In addition heard CT with IV contrast was performed and showed stale aneurysm clip, no bleed Ehsan Benz MD, [facility] -------- H&P reviewed. The patient was examined and there are no changes to the H&P. The procedure was explained to the patient. The risks and benefits of the procedure were explained to the patient who showed understanding and with full capacity elected to proceed with the procedure. All questions were addressed and answered. Imelda House MD Poultry Eviscerator - PGY6 [facility] Kelli 2024 KILO RN educated pt on d/ c instructions. This included: site care, limited physical activity, resume normal diet, future appointments, medications, and moderate sedation instructions. RN educated pt on when to notify physician and when to go to the hospital. RN encouraged pt to voice any questions or concerns, and answered any questions or concerns if pt verbalized. [facility] Orders Onlyon 03-14-2024 Orders Only [id number] Lili Jacinto 1960 F Date Provider Department [employer] 03/14/2024 JOHNATHON HANSEN [facility] [place] HeartVAS Family History Problem Relation Age of Onset Heart attack Mother Atrial fibrillation Sister Stroke Sister Family Status - Relation Status Age at Mother Sister [facility] HP 03-05-2024 [facility] Cardiology - [facility] Subjective Moose Jacinto is a 63 y.o. year old female patient being seen for Atrial Fibrillation , Hypertension, and Palpitations Patient Active Problem List Diagnosis Anti-MEDICAL TRANSCRIPTION RADIOLOGY antibodies present ILD (interstitial lung disease) (CMS/HCC) [...] mellitus. She states that her mother had AZ at age 70 and her sister had AZ at age 60. ROS All systems were [...] is not a (more content not included)... Normal [facility] Office Visiton 03-05-2024 Follow-up visit [id number] Lili Jacinto [place] 1960 F Date Provider Department Center 03/05/2024 [id number] BENZ OLIVERIO Spangler Family History Problem Relation Age of Onset Heart attack Mother Atrial fibrillation Sister Stroke Sister Family Status - Relation Status Age at Mother Sister Level of Service:50592 [place] OFFICE/OUTPATIENT ESTABLISHED MOD MDM 30 MIN Reason for Visit and Comments: Atrial Fibrillation [80] - Denies palpitations, syncope. Had loop recorder placed in Dec 2023. Hypertension [534329] - Says PCP switched her lisinopril to telmisartan and bisoprolol due to headaches. She says so far this has been better for her and BP has been ok. Palpitations [901774] - Denies recent palpitations. Denies chest pain and SOB. Normal [facility] ANESon 01-04-2024 ANES ---- -------- Attestation signed by Maxwell Marshall MD at [...] be an additional personal documentation from me. -------- Patient: Moose Jacinto Procedure Information Date/Time: 01/04/24 1130 Procedure: Loop insertion - pc approved 12/27-03/29 Location: [facility] / [facility]ASCULAR [facility] (Cath) Providers: Maxwell Marshall MD [...] attending and fellow. Additional Equipment Requests Normal [facility] HPon 01-04-2024 HP ---- -------- Attestation signed by Maxwell Marshall MD at [...] be an additional personal documentation from me. -------- H&P reviewed. The patient was examined and there are no changes to the H&P. Normal [facility] Abstracton 12-13-2023 Abstract [id number] Lili Jacinto 1960 F Date Provider Department Center 12/13/2023 MAXWELL VASQUEZ [facility] CARD [place] Family History Problem Relation Age of Onset Heart attack Mother Atrial fibrillation Sister Stroke Sister Family Status - Relation Status Age at Mother Sister Normal [facility] HPon 12-05-2023 [facility] Electrophysiology Consult Note 12/05/23 Patient here for [...] Rhythm: regular (more content not included)... Normal [facility] Office Visiton 12-05-2023 Follow-up visit [id number] Lili Jacinto 1960 Date Provider Department Center 12/05/2023 MAXWELL VASQUEZ Family History Problem Relation Age of Onset Heart attack Mother Atrial fibrillation Sister Stroke Sister Family Status - Relation Status Age at Mother Sister Level of Service:70791 [place] OFFICE/OUTPATIENT ESTABLISHED LOW MDM 20 MIN Normal [facility] Telemedicineon 06-06-2023 Telemedicine [id number] Lili Jacinto 1960 Date Provider Department Center 06/06/2023 MAXWELL VASQUEZ Family History Problem Relation Age of Onset Heart attack Mother Atrial fibrillation Sister Stroke Sister Family Status - Relation Status Age at Mother Sister Level of Service:23633 [place] PHYS/QHP TELEPHONE EVALUATION 5-10 MIN Normal [facility] Office Visiton 05-09-2023 Follow-up visit [id number] Lili Jacinto 1960 F Date Provider Department Center 05/09/2023 241-MARISSA, MAXWELL BH CARD [facility] Family History Problem Relation Age of Onset Heart attack Mother Atrial fibrillation Sister Stroke Sister Family Status - Relation Status Age at Mother Sister Level of Service:27079 [place] OFFICE/OUTPATIENT NEW MODERATE MDM 45 MINUTES Normal [facility] T3, TOTAL (TRIIODOTHYRONINE) on 09-01-2022 T3, TOTAL 85 ng/dL Normal 71-180 [facility] Comment on above: Performed By: #### T 3TOTAL #### [facility] [address] [place] [address] Dr. Karla Hull CBC AUTO DIFFon 08-31-2022 BASO # 0.0 103/ul Normal 0.0-0.1 [facility] Comment on above: Performed By: #### C BC #### [facility] [address] [place] [address] Dr. Karla Hull Basophils/100 WBC (Bld) 0.6 % Normal 0.2-2.0 [facility] Comment on above: Performed By: #### C BC #### [facility] [address] [place] [address] Dr. Karla Hull EO # 0.1 103/ul Normal 0.0-0.7 [facility] Comment on above: Performed By: #### C BC #### [facility] [address] [place] [address] Dr. Karla Hull Eosinophils/100 WBC (Bld) 1.0 % Normal 0.9-7.0 [facility] Comment on above: Performed By: #### C BC #### [facility] [address] [place] [address] Dr. Karla Hull Erythrocyte distribution width (RBC) [Ratio] 13.8 % Normal 11.0-15.0 [facility] Comment on above: Performed By: #### C BC #### [facility] [address] [place] [address] Dr. Karla Hull Hematocrit (Bld) [Volume fraction] 32.7 % Critically low 36.0-48.0 [facility] Comment on above: Performed By: #### C BC #### [facility] [address] [place] [address] Dr. Karla Hull Hemoglobin (Bld) [Mass/Vol] 10.6 g/dL Critically low 12.0-16.0 [facility] Comment on above: Performed By: #### C BC #### [facility] [address] [place] [address] Dr. Karla Hull IG # 0.01 10e3/ul Normal 0.00-0.03 [facility] Comment on above: Performed By: #### C BC #### [facility] [address] [place] [address] Dr. Karla Hull IG % 0.1 % Normal 0.0-0.5 [facility] Comment on above: Performed By: #### C BC #### [facility] [address] [place] [address] Dr. Karla Hull LYMPH # 1.8 103/ul Normal 1.2-3.8 [facility] Comment on above: Performed By: #### C BC #### [facility] [address] [place] [address] Dr. Karla Hull Lymphocytes/100 WBC (Bld) 27.3 % Normal 20.5-60.0 [facility] Comment on above: Performed By: #### C BC #### [facility] [address] [place] [address] Dr. Karla Hull MANUAL DIFF REQ NO Normal [facility] Comment on above: Performed By: #### C BC #### [facility] [address] [place] [address] Dr. Karla Hull MCH (RBC) [Entitic mass] 27.0 pg Normal 26.7-34.0 [facility] Comment on above: Performed By: #### C BC #### [facility] [address] [place] [address] Dr. Karla Hull MCHC (RBC) [Mass/Vol] 32.4 g/dL Normal 29.9-35.2 [facility] Comment on above: Performed By: #### C BC #### [facility] [address] [place] [address] Dr. Karla Hull MCV (RBC) [Entitic vol] 83.4 fL Normal 81.0-99.0 [facility] Comment on above: Performed By: #### C BC #### [facility] [address] [place] [address] Dr. Karla Hull MONO # 0.6 103/ul Normal 0.3-0.8 [facility] Comment on above: Performed By: #### C BC #### [facility] [address] [place] [address] Dr. Karla Hull Monocytes/100 WBC (Bld) 8.3 % Normal 1.7-12.0 [facility] Comment on above: Performed By: #### C BC #### [facility] [address] [place] [address] Dr. Karla Hull NEUT # 4.2 103/ul Normal 1.4-6.5 [facility] Comment on above: Performed By: #### C BC #### [facility] [address] [place] [address] Dr. Karla Hull Neutrophils/100 WBC (Bld) 62.7 % Normal 43.0-75.0 [facility] Comment on above: Performed By: #### C BC #### [facility] [address] [place] [address] Dr. Karla Hull Platelet mean volume (Bld) [Entitic vol] 9.9 fL Normal 9.5-13.5 [facility] Comment on above: Performed By: #### C BC #### [facility] [address] [place] [address] Dr. Karla Hull PLT 187 103/ul Normal 150-450 [facility] Comment on above: Performed By: #### C BC #### [facility] [address] [place] [address] Dr. Karla Hull RBC 3.92 106/ul Critically low 4.20-5.40 [facility] Comment on above: Performed By: #### C BC #### [facility] [address] [place] [address] Dr. Karla Hull WBC 6.8 103/ul Normal 4.0-11.0 [facility] Comment on above: Performed By: #### C BC #### [facility] [address] [place] [address] Dr. Karla Hull CULTURE URINEon 08-31-2022 CULTURE URINE Culture Observations : NO GROWTH. Normal [facility] Comment on above: Performed By: #### U RCX #### [facility] [address] [place] [address] Dr. Karla Hull FREE T4on 08-31-2022 Free T4 [Mass/Vol] 0.98 ng/dL Normal 0.76-1.46 [facility] Comment on above: Performed By: #### F T4 #### [facility] [address] [place] [address] Dr. Karla Hull PROF 14(COMP METB)on 023 Albumin [Mass/Vol] 3.7 g/dL Normal 3.4-5.0 [facility] Comment on above: Performed By: #### L IPID, CMP #### [facility] [address] [place] [address] Dr. Karla Hull Albumin/Globulin [Mass ratio] 0.9 {ratio} Normal [facility] Comment on above: Performed By: #### L IPID, CMP #### [facility] [address] [place] [address] Dr. Karla Hull ALP [Catalytic activity/Vol] 72 U/L Normal 46-116 [facility] Comment on above: Performed By: #### L IPID, CMP #### [facility] [address] [place] [address] Dr. Karla Hull ALT [Catalytic activity/Vol] 21 U/L Normal 14-59 [facility] Comment on above: Performed By: #### L IPID, CMP #### [facility] [address] [place] [address] Dr. Karla Hull Anion gap [Moles/Vol] 11.2 mmol/L Normal [facility] Comment on above: Performed By: #### L IPID, CMP #### [facility] [address] [place] [address] Dr. Karla Hull AST [Catalytic activity/Vol] 17 U/L Normal 15-37 [facility] Comment on above: Performed By: #### L IPID, CMP #### [facility] [address] [place] [address] Dr. Karla Hull Bilirubin [Mass/Vol] 0.3 mg/dL Normal 0.2-1.0 [facility] Comment on above: Performed By: #### L IPID, CMP #### [facility] [address] [place] [address] Dr. Karla Hull Calcium [Mass/Vol] 8.9 mg/dL Normal 8.5-10.1 [facility] Comment on above: Performed By: #### L IPID, CMP #### [facility] [address] [place] [address] Dr. Karla Hull Chloride [Moles/Vol] 102 mmol/L Normal 98-107 [facility] Comment on above: Performed By: #### L IPID, CMP #### [facility] [address] [place] [address] Dr. Karla Hull CO2 [Moles/Vol] 28.1 mmol/L Normal 21.0-32.0 [facility] Comment on above: Performed By: #### L IPID, CMP #### [facility] [address] [place] [address] Dr. Karla Hull Creatinine [Mass/Vol] 0.86 mg/dL Normal 0.55-1.02 [facility] Comment on above: Performed By: #### L IPID, CMP #### [facility] [address] [place] [address] Dr. Karla Hull EGFR-AF CAMEROONIAN >60 Normal >=60 [facility] Comment on above: Performed By: #### L IPID, CMP #### [facility] [address] [place] [address] Dr. Karla Hull EGFR-NON AF CAMEROONIAN >60 Normal >=60 [facility] Comment on above: Performed By: #### L IPID, CMP #### [facility] [address] [place] [address] Dr. Karla Hull Globulin (S) [Mass/Vol] 4.2 g/dL Normal [facility] Comment on above: Performed By: #### L IPID, CMP #### [facility] [address] [place] [address] Dr. Karla Hull Glucose [Mass/Vol] 118 mg/dL Critically high 74-106 [facility] Comment on above: Performed By: #### L IPID, CMP #### [facility] [address] [place] [address] Dr. Karla Hull Potassium [Moles/Vol] 4.3 mmol/L Normal 3.5-5.1 [facility] Comment on above: Performed By: #### L IPID, CMP #### [facility] [address] [place] [address] Dr. Karla Hull Protein [Mass/Vol] 7.9 g/dL Normal 6.4-8.2 [facility] Comment on above: Performed By: #### L IPID, CMP #### [facility] [address] [place] [address] Dr. Karla Hull Sodium [Moles/Vol] 137 mmol/L Normal 136-145 [facility] Comment on above: Performed By: #### L IPID, CMP #### [facility] [address] [place] [address] Dr. Karla Hull Urea nitrogen [Mass/Vol] 15.0 mg/dL Normal 7.0-18.0 [facility] Comment on above: Performed By: #### L IPID, CMP #### [facility] [address] [place] [address] Dr. Karla Hull Urea nitrogen/Creatinine [Mass ratio] 17.4 mg/mg Normal [facility] Comment on above: Performed By: #### L IPID, CMP #### [facility] [address] [place] [address] Dr. Karla Hull TSHon 08-31-2022 TSH 1.299 uIU/mL Normal 0.358-3.740 [facility] Comment on above: Performed By: #### L IPID, CMP #### [facility] [address] [address] [address] Karla Hull UA RANDOM W/MICROSCOPICon BACTERIA MODERATE Abnormal NONE SEEN [facility] Comment on above: Performed By: #### U AMIC #### [facility] [address] [address] [address] Karla Hull Bilirubin Ql (U) Negative Normal NEGATIVE [facility] Comment on above: Performed By: #### U AMIC #### [facility] [address] [address] [address] Karla Hull CAST NONE SEEN Normal NONE SEEN [facility] Comment on above: Performed By: #### U AMIC #### [facility] [address] [address] [address] Karla Hull Clarity (U) CLEAR Normal CLEAR [facility] Comment on above: Performed By: #### U AMIC #### [facility] [address] [address] [address] Karla Hull Color (U) LT. YELLOW Normal YELLOW [facility] Comment on above: Performed By: #### U AMIC #### [facility] [address] [address] [address] Karla Hull Crystals LM Nom (Urine sed) NONE SEEN Normal NONE SEEN [facility] Comment on above: Performed By: #### U AMIC #### [facility] [address] [address] [address] Karla Hull Epithelial cells LM Ql (Urine sed) FEW Abnormal NONE SEEN /RARE [facility] Comment on above: Performed By: #### U AMIC #### [facility] [address] [address] [address] Karla Hull Glucose Ql (U) Negative Normal NEGATIVE [facility] Comment on above: Performed By: #### U AMIC #### [facility] [address] [place] [address] Dr. Karla Hull Hemoglobin Ql (U) TRACE-INTACT Abnormal NEGATIVE [facility] Comment on above: Performed By: #### U AMIC #### [facility] [address] [address] [address] Karla Hull Ketones Ql (U) Negative Normal NEGATIVE [facility] Comment on above: Performed By: #### U AMIC #### [facility] [address] [address] [address] Karla Hull LEUKOCYTES LARGE Abnormal NEGATIVE [facility] Comment on above: Performed By: #### U AMIC #### [facility] [address] [address] [address] Karla Hull MUCOUS NONE SEEN Normal NONE SEEN [facility] Comment on above: Performed By: #### U AMIC #### [facility] [address] [address] [address] Karla Hull Nitrite Ql (U) Negative Normal NEGATIVE [facility] Comment on above: Performed By: #### U AMIC #### [facility] [address] [place] [address] Dr. Karla Hull pH (U) 7.0 [pH] Normal 5-9 [facility] Comment on above: Performed By: #### U AMIC #### [facility] [address] [place] [address] Dr. Karla Hull RBC 0-2 Normal 0-2 [facility] Comment on above: Performed By: #### U AMIC #### [facility] [address] [place] [address] Dr. Karla Hull SPEC GRAVITY 1.010 Normal 1.005-<=1.025 [facility] Comment on above: Performed By: #### U AMIC #### [facility] [address] [place] [address] Dr. Karla Hull UA PROTEIN Negative Normal NEGATIVE/ TRACE [facility] Comment on above: Performed By: #### U AMIC #### [facility] [address] [place] [address] Dr. Karla Hull Urobilinogen Qn (U) 0.2 {More'U}/dL Normal 0.2 - 1. 0 [facility] Comment on above: Performed By: #### U AMIC #### [facility] [address] [place] [address] Dr. Karla Hull WBC 10-20 Abnormal NONE SEEN [facility] Comment on above: Performed By: #### U [facility] #### [facility] [id number] Karla KOENIGOVon 12-27-2021 CNOV Office Visit (PULMMN ) -------- MOOSE JACINTO ([id number]) 1960 F Date Time Provider Department 12/27/21 12:30 PM TOÑITO GERMAN During your visit today, we recorded the following information about you: Temperature Respiration Blood pressure Weight 97.1 degrees 16/minute 170/80 54.2 kg Toñito Tai MD 12/27/2021 1:08 PM [facility] Respiratory Dalton Moose Lay[place] Timmy is a 61 year old year old [...] Tai MD December 27, 2021 1:07 PM Tñoito Tai MD 12/27/2021 1:04 PM Signed - [...] [92] Primary Visit Diagnosis:ILD (interstitial lung disease) ([facility]) [J84.9] Order(s):mycophenolate Mofetil (CELLCEPT) 500 mg tabletTake 2 tablets by mouth once daily.Disp: 60 (more content not included)... Normal [facility] MG MAMM LT DIAG FUon 022 MG MAMM LT DIAG Patient: DUNCAN JACINTO REJI Fernandez Exam Date: 11/01/2021 : 1960 Gender:F Ordering : DR FRED OLIVEIRA DZhanna Admission #: [id number] Family : Order #: [id number] CLICK HERE TO VIEW EXAM RADIOLOGY REPORT [...] colon cancer at age 73. LOCATION: [facility] BREAST COMPOSITION: Extremely dense, which lowers [...] PALPABLE LUMP SHOULD BE BIOPSIED. Dictated by: Scar Julio M.D. on 11/01/2021 at 15:20 Approved by: Scar Julio M.D. on 11/01/2021 at 15:22 Normal [facility] US BREAST LEFT LIMITEDon US BREAST LEFT LIMITED Patient: MOOSE JACINTO Exam Date: 11/01/2021 : 1960 Gender:F Ordering : DR FRED OLIVEIRA D.O. Admission #: [id number] Family : Order #: [id number] CLICK HERE TO VIEW EXAM RADIOLOGY REPORT [...] colon cancer at age 73. LOCATION: [facility] BREAST COMPOSITION: Extremely dense, which lowers [...] PALPABLE LUMP SHOULD BE BIOPSIED. Dictated by: Scar Julio M.D. on 11/01/2021 at 15:20 Approved by: Scar Julio M.D. on 11/01/2021 at 15:22 Normal [facility] MAMM SCREEN 3D CORY CADon 10-25-2021 MAMM SCREEN 3D CORY CAD Patient: MOOSE JACINTO Exam Date: 10/25/2021 : 1960 Gender:F Ordering : DR FRED OLIVEIRA D.O. Admission #: [id number] Family : Order #: [id number] CLICK HERE TO VIEW EXAM RADIOLOGY REPORT [...] colon cancer at age 73. LOCATION: [facility] BREAST COMPOSITION: Extremely dense, which lowers [...] Segura MD on 10/25/2021 at 13:53 Normal [facility] CBC AUTO DIFFon 10-20-2021 BASO # 0.0 103/ul Normal 0.0-0.1 [facility] Comment on above: Performed By: #### L IPID, CMP #### [facility] [address] [place] [address] Dr. Karla Hull Basophils/100 WBC (Bld) 0.6 % Normal 0.2-2.0 [facility] Comment on above: Performed By: #### L IPID, CMP #### [facility] [address] [place] [address] Dr. Karla Hull EO # 0.1 103/ul Normal 0.0-0.7 [facility] Comment on above: Performed By: #### L IPID, CMP #### [facility] [address] [place] [address] Dr. Karla Hull Eosinophils/100 WBC (Bld) 0.8 % Critically low 0.9-7.0 [facility] Comment on above: Performed By: #### L IPID, CMP #### [facility] [address] [place] [address] Dr. Karla Hull Erythrocyte distribution width (RBC) [Ratio] 13.6 % Normal 11.0-15.0 [facility] Comment on above: Performed By: #### L IPID, CMP #### [facility] [address] [place] [address] Dr. Karla Hull Hematocrit (Bld) [Volume fraction] 33.7 % Critically low 36.0-48.0 [facility] Comment on above: Performed By: #### L IPID, CMP #### [facility] [address] [place] [address] Dr. Karla Hull Hemoglobin (Bld) [Mass/Vol] 10.6 g/dL Critically low 12.0-16.0 [facility] Comment on above: Performed By: #### L IPID, CMP #### [facility] [address] [place] [address] Dr. Karla Hull IG # 0.01 10e3/ul Normal 0.00-0.03 [facility] Comment on above: Performed By: #### L IPID, CMP #### [facility] [address] [address] [address] Karla Hull IG % 0.1 % Normal 0.0-0.5 [facility] Comment on above: Performed By: #### L IPID, CMP #### [facility] [address] [place] [address] Dr. Karla Hull LYMPH # 2.0 103/ul Normal 1.2-3.8 [facility] Comment on above: Performed By: #### L IPID, CMP #### [facility] [address] [place] [address] Dr. Karla Hull Lymphocytes/100 WBC (Bld) 28.2 % Normal 20.5-60.0 [facility] Comment on above: Performed By: #### L IPID, CMP #### [facility] [address] [place] [address] Dr. Karla Hull MANUAL DIFF REQ NO Normal [facility] Comment on above: Performed By: #### L IPID, CMP #### [facility] [address] [place] [address] Dr. Karla Hull MCH (RBC) [Entitic mass] 26.6 pg Critically low 26.7-34.0 [facility] Comment on above: Performed By: #### L IPID, CMP #### [facility] [address] [place] [address] Dr. Karla Hull MCHC (RBC) [Mass/Vol] 31.5 g/dL Normal 29.9-35.2 [facility] Comment on above: Performed By: #### L IPID, CMP #### [facility] [address] [place] [address] Dr. Karla Hull MCV (RBC) [Entitic vol] 84.5 fL Normal 81.0-99.0 [facility] Comment on above: Performed By: #### L IPID, CMP #### [facility] [address] [place] [address] Dr. Karla Hull MONO # 0.5 103/ul Normal 0.3-0.8 [facility] Comment on above: Performed By: #### L IPID, CMP #### [facility] [address] [address] [address] Karla Hull Monocytes/100 WBC (Bld) 7.1 % Normal 1.7-12.0 [facility] Comment on above: Performed By: #### L IPID, CMP #### [facility] [address] [address] [address] Karla Hull NEUT # 4.6 103/ul Normal 1.4-6.5 [facility] Comment on above: Performed By: #### L IPID, CMP #### [facility] [address] [address] [address] Karla Hull Neutrophils/100 WBC (Bld) 63.2 % Normal 43.0-75.0 [facility] Comment on above: Performed By: #### L IPID, CMP #### [facility] [address] [place] [address] Dr. Karla Hull Platelet mean volume (Bld) [Entitic vol] 9.9 fL Normal 9.5-13.5 [facility] Comment on above: Performed By: #### L IPID, CMP #### [facility] [address] [address] [address] Karla Hull PLT 239 103/ul Normal 150-450 [facility] Comment on above: Performed By: #### L IPID, CMP #### [facility] [address] [place] [address] Dr. Karla Hull RBC 3.99 106/ul Critically low 4.20-5.40 [facility] Comment on above: Performed By: #### L IPID, CMP #### [facility] [address] [place] [address] Dr. Karla Hull WBC 7.2 103/ul Normal 4.0-11.0 [facility] Comment on above: Performed By: #### L IPID, CMP #### [facility] [address] [address] [address] Karla Hull GLYCOHEMOGLOBIN A1Con 2021 ADA RECOMMENDATION SEE BELOW Normal [facility] Comment on above: Result Comment: ADA RECOMMENDED LIMIT 4.0 - 6.0 ADA THERAPEUTIC TARGET < 7.0 ACTION SUGGESTED > 7.0 Performed By: #### A 1C #### [facility] [address] [address] [address] Karla Hull Glucose [Mass/Vol] 131 mg/dL Normal [facility] Comment on above: Performed By: #### A 1C #### [facility] [address] [address] [address] Karla Hull HbA1c (Bld) [Mass fraction] 6.2 % Normal 4.5-6.2 [facility] Comment on above: Performed By: #### A 1C #### [facility] [address] [place] [address] Dr. Karla Hull LIPID PROFILEon 10-20-2021 CHOL-HDL RATIO NORM SEE BELOW Normal [facility] Comment on above: Result Comment: 3.3 - 4.4 LOW RISK 4.4 - 7.1 AVERAGE RISK 7.1 - 11.0 MODERATE RISK >11.0 HIGH RISK Performed By: #### L IPID, CMP #### [facility] [address] [place] [address] Dr. Karla Hull Cholesterol [Mass/Vol] 190 mg/dL Normal <=200 [facility] Comment on above: Performed By: #### L IPID, CMP #### [facility] [address] [place] [address] Dr. Karla Hull Cholesterol in HDL [Mass/Vol] 70 mg/dL Critically high 40-60 [facility] Comment on above: Performed By: #### L IPID, CMP #### [facility] [address] [address] [address] Karla Hull Cholesterol in LDL [Mass/Vol] 110.8 mg/dL Normal [facility] Comment on above: Performed By: #### L IPID, CMP #### [facility] [address] [place] [address] Dr. Karla Hull Cholesterol.total/C holesterol in HDL [Mass ratio] 2.7 {ratio} Normal [facility] Comment on above: Performed By: #### L IPID, CMP #### [facility] [address] [address] [address] Karla Hull HDL NORMAL > or = 60 mg/dl - LO W CARDIOVASCULAR RISK <40 mg/dl - HIGH CARDIOVASCULAR RISK Normal [facility] Comment on above: Performed By: #### L IPID, CMP #### [facility] [address] [address] [address] Karla Hull LDL CALC NORMAL SEE BELOW Normal [facility] Comment on above: Result Comment: <100 mg/dl OPTIMAL 100 - 129 mg/dl NEAR OR ABOVE OPTIMAL 130 - 159 mg/dl BORDERLINE HIGH 160 - 189 mg/dl HIGH >190 mg/dl VERY HIGH Performed By: #### L IPID, CMP #### [facility] [address] [place] [address] Dr. Karla Hull Triglyceride [Mass/Vol] 46 mg/dL Normal <=150 [facility] Comment on above: Performed By: #### L IPID, CMP #### [facility] [address] [address] [address] Karla Hull VLDL CALC 9.2 mg/dL Normal [facility] Comment on above: Performed By: #### L IPID, CMP #### [facility] [address] [place] [address] Dr. Karla Hull PROF 14(COMP METB)on 022 Albumin [Mass/Vol] 3.7 g/dL Normal 3.4-5.0 [facility] Comment on above: Performed By: #### L IPID, CMP #### [facility] [address] [place] [address] Dr. Karla Hull Albumin/Globulin [Mass ratio] 0.8 {ratio} Normal [facility] Comment on above: Performed By: #### L IPID, CMP #### [facility] [address] [place] [address] Dr. Karla Hull ALP [Catalytic activity/Vol] 75 U/L Normal 46-116 [facility] Comment on above: Performed By: #### L IPID, CMP #### [facility] [address] [place] [address] Dr. Karla Hull ALT [Catalytic activity/Vol] 21 U/L Normal 14-59 [facility] Comment on above: Performed By: #### L IPID, CMP #### [facility] [address] [place] [address] Dr. Karla Hull Anion gap [Moles/Vol] 13.5 mmol/L Normal [facility] Comment on above: Performed By: #### L IPID, CMP #### [facility] [address] [place] [address] Dr. Karla Hull AST [Catalytic activity/Vol] 22 U/L Normal 15-37 [facility] Comment on above: Performed By: #### L IPID, CMP #### [facility] [address] [place] [address] Dr. Karla Hull Bilirubin [Mass/Vol] 0.2 mg/dL Normal 0.2-1.0 [facility] Comment on above: Performed By: #### L IPID, CMP #### [facility] [address] [place] [address] Dr. Karla Hull Calcium [Mass/Vol] 9.4 mg/dL Normal 8.5-10.1 [facility] Comment on above: Performed By: #### L IPID, CMP #### [facility] [address] [place] [address] Dr. Karla Hull Chloride [Moles/Vol] 100 mmol/L Normal 98-107 [facility] Comment on above: Performed By: #### L IPID, CMP #### [facility] [address] [place] [address] Dr. Karla Hull CO2 [Moles/Vol] 27.1 mmol/L Normal 21.0-32.0 [facility] Comment on above: Performed By: #### L IPID, CMP #### [facility] [address] [place] [address] Dr. Karla Hull Creatinine [Mass/Vol] 0.77 mg/dL Normal 0.55-1.02 [facility] Comment on above: Performed By: #### L IPID, CMP #### [facility] [address] [address] [address] Karla Hull EGFR-AF CAMEROONIAN >60 Normal >=60 [facility] Comment on above: Performed By: #### L IPID, CMP #### [facility] [address] [address] [address] Karla Hull EGFR-NON AF CAMEROONIAN >60 Normal >=60 [facility] Comment on above: Performed By: #### L IPID, CMP #### [facility] [address] [address] [address] Karla Hull Globulin (S) [Mass/Vol] 4.4 g/dL Normal [facility] Comment on above: Performed By: #### L IPID, CMP #### [facility] [address] [place] [address] Dr. Karla Hull Glucose [Mass/Vol] 79 mg/dL Normal 74-106 [facility] Comment on above: Performed By: #### L IPID, CMP #### [facility] [address] [place] [address] Dr. Karla Hull Potassium [Moles/Vol] 4.6 mmol/L Normal 3.5-5.1 [facility] Comment on above: Performed By: #### L IPID, CMP #### [facility] [address] [place] [address] Dr. Karla Hull Protein [Mass/Vol] 8.1 g/dL Normal 6.4-8.2 [facility] Comment on above: Performed By: #### L IPID, CMP #### [facility] [address] [place] [address] Dr. Karla Hull Sodium [Moles/Vol] 136 mmol/L Normal 136-145 [facility] Comment on above: Performed By: #### L IPID, CMP #### [facility] [address] [place] [address] Dr. Karla Hull Urea nitrogen [Mass/Vol] 17.0 mg/dL Normal 7.0-18.0 [facility] Comment on above: Performed By: #### L IPID, CMP #### [facility] [address] [address] [address] Karla Hull Urea nitrogen/Creatinine [Mass ratio] 22.1 mg/mg Normal [facility] Comment on above: Performed By: #### L IPID, CMP #### [facility] [address] [address] [address] Karla Lara 05-19-2021 CNPN Telephone (PULMMN) -------- MOOSE JACINTO ([id number]) 1960 F Date Time Provider Department 05/19/21 TOÑITO GERMAN During your visit today, we recorded the following information about you: Matthias [place] 05/19/2021 2:41 PM Signed Received outside records from [facility] Please allow time to process Allergies As of Date: 05/19/2021 Noted Allergy Reaction AMOXICILLIN 02/02/2017 14 - Other: See Comments Comments: Causes patient to be severely cold IODINE 10/08/2012 16 - Unknown SULFA (SULFONAMIDE ANTIBIOTICS) 03/01/2013 16 - Unknown Date Reviewed: 05/06/2021 Reviewed by: Danay Reyna - Fully Assessed Reason for Visit: Received Outside Medical Records [[id number]] Prescriptions as of 05/19/2021 - lisinopril (ZESTRIL, [...] (HCC) [M34.9] 02/20/2017 NSIP (nonspecific interstitial pneumonia) ([facility])*02/20/2017 08/19/2019 Anti-MEDICAL TRANSCRIPTION RADIOLOGY antibodies present [R76.8] 02/20/2017 Positive antinuclear antibody [R76.8] 02/20/2017 ILD (interstitial lung disease) ([facility]) [J84.9] 06/02/2017 Pain of both shoulder joints [M25.511, M25.512] 06/02/2017 Encounter Status:Closed by MATTHIAS [place] on 05/19/21 [facility] CNOVon 05-06-2021 CNOV Office Visit (PULMMN ) -------- MOOSE JACINTO ([id number]) 1960 F Date Time Provider Department 05/06/21 1:30 PM TOÑITO GERMAN During your visit today, we recorded the following information about you: Pulse Respiration Blood pressure Weight 75/minute 20/minute 145/63 53.9 kg Height 1.499 m Toñito Tai MD 05/07/2021 7:09 AM Signed Respiratory Dalton Moose Jacinto is a 61 year old [...] not in our system (done locally in [place]); She wasn't informed of any abnormalities in [...] No RHC (more content not included)... Normal [facility] XR CHEST 2V FRONTAL/LATon XR CHEST [...] IMPRESSION: Please see body of the report. Vest Maker: MAHESH Transcribe Date/Time: May 06 2021 4:03P Dictated by : KARYNA GRAJEDA MD This examination was interpreted and the report reviewed and electronically signed by: KARYNA GRAJEDA MD on May 06 2021 4:04PM EST [id number] Normal [facility] Complete Blood Count Auto Di ffon 10-13-2020 Basophils (Bld) [#/Vol] 0.0 10*3/uL Normal 0.0-0.2 [facility] Comment on above: Performed By: #### E SR, CBC, HEPATIC, CK, CREAT #### [facility] [address] [id number] [place] Basophils/100 WBC (Bld) 0.6 % Normal . [facility] Comment on above: Performed By: #### E SR, CBC, HEPATIC, CK, CREAT #### [facility] [address] [place] [address] [place] Eosinophils (Bld) [#/Vol] 0.1 10*3/uL Normal 0.0-0.45 [facility] Comment on above: Performed By: #### E SR, CBC, HEPATIC, CK, CREAT #### [facility] [address] [id number] [place] Eosinophils/100 WBC (Bld) 1.3 % Normal . [facility] Comment on above: Performed By: #### E SR, CBC, HEPATIC, CK, CREAT #### [address] Erythrocyte distribution width (RBC) [Ratio] 14.3 % Normal 11.9-15.3 [facility] Comment on above: Performed By: #### E SR, CBC, HEPATIC, CK, CREAT #### [address] Hematocrit (Bld) [Volume fraction] 32.2 % Low 34.0-46.4 [facility] Comment on above: Performed By: #### E SR, CBC, HEPATIC, CK, CREAT #### [address] Hemoglobin (Bld) [Mass/Vol] 10.4 g/dL Low 11.8-15.4 [facility] Comment on above: Performed By: #### E SR, CBC, HEPATIC, CK, CREAT #### [address] Lymphocytes (Bld) [#/Vol] 1.9 10*3/uL Normal 1.00-4.8 [facility] Comment on above: Performed By: #### E SR, CBC, HEPATIC, CK, CREAT #### [address] Lymphocytes/100 WBC (Bld) 27.4 % Normal . [facility] Comment on above: Performed By: #### E SR, CBC, HEPATIC, CK, CREAT #### [address] MCH (RBC) [Entitic mass] 26.6 pg Normal 24.7-34.3 [facility] Comment on above: Performed By: #### E SR, CBC, HEPATIC, CK, CREAT #### [address] MCV (RBC) [Entitic vol] 82.5 fL Normal 80-100 [facility] Comment on above: Performed By: #### E SR, CBC, HEPATIC, CK, CREAT #### [address] Mean Corpuscular HGB Conc 32.3 g/dL Normal 32.0-35.0 [facility] Comment on above: Performed By: #### E SR, CBC, HEPATIC, CK, CREAT #### [address] Monocytes (Bld) [#/Vol] 0.7 10*3/uL Normal 0.0-0.8 [facility] Comment on above: Performed By: #### E SR, CBC, HEPATIC, CK, CREAT #### [address] Monocytes/100 WBC (Bld) 9.3 % Normal . [facility] Comment on above: Performed By: #### E SR, CBC, HEPATIC, CK, CREAT #### [address] Neutrophils (Bld) [#/Vol] 4.3 10*3/uL Normal 1.8-7.7 [facility] Comment on above: Performed By: #### E SR, CBC, HEPATIC, CK, CREAT #### [address] Neutrophils/100 WBC (Bld) 61.4 % Normal . [facility] Comment on above: Performed By: #### E SR, CBC, HEPATIC, CK, CREAT #### [address] Nucleated RBC/100 WBC (Bld) [Ratio] 0.0 % Normal 0-0.5 [facility] Comment on above: Performed By: #### E SR, CBC, HEPATIC, CK, CREAT #### [address] Platelet mean volume (Bld) [Entitic vol] 8.5 fL Normal 6.3-10.7 [facility] Comment on above: Performed By: #### E SR, CBC, HEPATIC, CK, CREAT #### [address] Platelets (Bld) [#/Vol] 220 10*3/uL Normal 150-450 [facility] Comment on above: Performed By: #### E SR, CBC, HEPATIC, CK, CREAT #### [address] RBC (Bld) [#/Vol] 3.90 10*6/uL Normal 3.60-5.00 [facility] Comment on above: Performed By: #### E SR, CBC, HEPATIC, CK, CREAT #### [address] WBC (Bld) [#/Vol] 7.0 10*3/uL Normal 4.5-11.0 [facility] Comment on above: Performed By: #### E SR, CBC, HEPATIC, CK, CREAT #### [address] Creatine Kinaseon 10-13-2020 CK [Catalytic activity/Vol] 68 U/L Normal 22-269 [facility] Comment on above: Result Comment: PERF ORMED BY: [place] [address] PATHOLOGIST [employer]KER SHERI STUBBS M.D. Performed By: #### E SR, CBC, HEPATIC, CK, CREAT #### [address] Creatinineon 10-13-2020 Creatinine [Mass/Vol] 0.80 mg/dL Normal 0.44-1.03 [facility] Comment on above: Performed By: #### E SR, CBC, HEPATIC, CK, CREAT #### [address] Estimated GFR ( Maria Luisa > 60 Normal [facility] Comment on above: Result Comment: GFR estimated reference range: According to KDOQI guidelines, <60 ml/min/1.73m2 is sufficient to diagnose a patient with chronic kidney disease. PERFORMED BY: [place] [address] PATHOLOGIST [employer] MAK[employer] SHERI STUBBS M.D. Performed By: #### E SR, CBC, HEPATIC, CK, CREAT #### [address] Estimated GFR (Non- Am > 60 Normal [facility] Comment on above: Performed By: #### E SR, CBC, HEPATIC, CK, CREAT #### [address] Erythrocyte Sedimentation Ra patricia 10-13-2020 ESR (Bld) [Velocity] 46 mm/h High 0-29 [facility] Comment on above: Result Comment: PERF ORMED BY: [address] [place] [address] PATHOLOGIST [employer] SHERI STUBBS M.D. Performed By: #### E SR, CBC, HEPATIC, CK, CREAT #### [address] Hepatic Panelon 10-13-2020 Albumin [Mass/Vol] 3.8 g/dL Normal 3.2-5.5 [facility] Comment on above: Performed By: #### E SR, CBC, HEPATIC, CK, CREAT #### [address] Albumin/Globulin [Mass ratio] 1.1 {ratio} Normal [facility] Comment on above: Performed By: #### E SR, CBC, HEPATIC, CK, CREAT #### [address] ALP [Catalytic activity/Vol] 60 U/L Normal 32-92 [facility] Comment on above: Performed By: #### E SR, CBC, HEPATIC, CK, CREAT #### [address] ALT [Catalytic activity/Vol] 13 U/L Normal 10-60 [facility] Comment on above: Performed By: #### E SR, CBC, HEPATIC, CK, CREAT #### [place] [address] [place] AST [Catalytic activity/Vol] 19 U/L Normal 10-42 [facility] Comment on above: Performed By: #### E SR, CBC, HEPATIC, CK, CREAT #### [facility] [address] Bilirubin [Mass/Vol] 0.5 mg/dL Normal 0.3-1.2 [facility] Comment on above: Performed By: #### E SR, CBC, HEPATIC, CK, CREAT #### [facility] [address] Bilirubin,Indirect Not performed Normal [facility] Comment on above: Performed By: #### E SR, CBC, HEPATIC, CK, CREAT #### [facility] [address] Bilirubin.indirect [Mass/Vol] mg/dL Normal 0.0-0.4 [facility] Comment on above: Performed By: #### E SR, CBC, HEPATIC, CK, CREAT #### [facility] [address] Globulin (S) [Mass/Vol] 3.5 g/dL Normal [facility] Comment on above: Performed By: #### E SR, CBC, HEPATIC, CK, CREAT #### [facility] [address] Protein [Mass/Vol] 7.3 g/dL Normal 6.1-7.9 [facility] Comment on above: Performed By: #### E SR, CBC, HEPATIC, CK, CREAT #### [facility] [address] Vital Signs Date Time Vital Sign Value Performing Clinician Facility 05-01-2023 14:30-0500 Body height 149.86 cm Fred Oliveira Other [employer] [facility] [employer] Other 05-01-2023 14:30-0500 Body mass index (BMI) [Ratio] 24.76 kg/m2 Fred Oliveira Other [facility] Other 05-01-2023 14:30-0500 Body weight 55.61 kg Fred Ball Other [facility] Other 05-01-2023 14:30-0500 Diastolic blood pressure 81 mm[Hg] Fred Ball Other [facility] Other 05-01-2023 14:30-0500 Respiratory rate 12 /min Fred Ball Other [facility] Other 05-01-2023 14:30-0500 Systolic blood pressure 184 mm[Hg] Fred Ball Other [facility] Other 03-31-2023 11:15-0500 Body height 149.86 cm Fred Ball Other [facility] Other 03-31-2023 11:15-0500 Body mass index (BMI) [Ratio] 24.32 kg/m2 Fred Ball Other [facility] Other 03-31-2023 11:15-0500 Body weight 54.61 kg Fred Ball Other [facility] Other 03-31-2023 11:15-0500 Diastolic blood pressure 90 mm[Hg] Fred Ball Other [facility] Other 03-31-2023 11:15-0500 Respiratory rate 12 /min Fred Ball Other [facility] Other 03-31-2023 11:15-0500 Systolic blood pressure 176 mm[Hg] Fred Ball Other [facility] Other 12-27-2021 12:49-0400 Body temperature 97.11 [degF] [...] 170 mm[Hg] Toñito Tai MD Work Phone: [facility] Encounters Encounter Date Encounter Type Care Provider Facility Start: 05-02-2024 ambulatory [facility] Start: 04-30-2024 End: 04-30-2024 Refill Toñito Tai MD Work Phone: Pulmonary Medicine Comment on above: Refill Request Start: 04-16-2024 End: 04-16-2024 ambulatory [facility] Start: 03-27-2024 End: 03-27-2024 [facility] Start: 2024 End: 2024 [facility] Start: 2024 End: 2024 [facility] Start: 03-05-2024 End: 03-05-2024 [facility] Start: 03-04-2024 ambulatory [facility] Start: 02-20-2024 ambulatory MANISHA MELTON [facility] Start: 01-29-2024 ambulatory [facility] Start: 01-04-2024 End: 01-04-2024 ambulatory [facility] Start: 12-05-2023 End: 12-05-2023 ambulatory [facility] Start: 09-22-2023 Refill Toñito Tai MD Work Phone: Pulmonary Medicine Comment on above: Refill Request Start: 07-19-2023 End: 07-19-2023 ambulatory Fred Oliveira Other [facility] Other Start: 07-19-2023 Telephone encounter Fred Oliveira [facility] Start: 06-06-2023 End: 06-07-2023 ambulatory [facility] Start: 05-09-2023 End: 05-09-2023 ambulatory [facility] Start: 05-08-2023 End: 05-08-2023 ambulatory Fred Oliveira Other [facility] Other Start: 05-08-2023 Telephone encounter Fred Oliveira [facility] Start: 05-01-2023 End: 05-01-2023 ambulatory Ferd Oliveira Other [facility] Other Start: 05-01-2023 Encounter for genera l adult medical examination without abnormal findings Fred Oliveira [facility] Start: 05-01-2023 Periodic preventive med est patient 40-64yrs Fred Oliveira [facility] Start: 04-05-2023 End: 04-05-2023 ambulatory Fred Oliviera Other [facility] Other Start: 04-05-2023 Telephone encounter Fred Oliveira [facility] Start: 04-03-2023 End: 04-03-2023 ambulatory Fred Oliveira Other [facility] Other Start: 04-03-2023 Telephone encounter Fred Oliveira [facility] Start: 03-31-2023 End: 03-31-2023 ambulatory Fred Oliveira Other [facility] Other Start: 03-31-2023 Office outpatient vi sit 15 minutes Fred Oliveira [facility] Start: 03-30-2023 End: 03-30-2023 ambulatory Fred Oliveira Other [facility] Other Start: 03-30-2023 Telephone encounter Fred HAMILTON [facility] Start: 03-26-2023 Refill Toñito Tai MD Work Phone: Pulmonary Medicine Comment on above: Refill Request Start: 03-16-2023 End: 03-16-2023 ambulatory Fred Oliveira Other [facility] Other Start: 03-16-2023 Telephone encounter Fred HAMILTON [facility] Start: 03-01-2023 End: 03-01-2023 ambulatory Fred Oliveira Other [facility] Other Start: 03-01-2023 Nursing evaluation o f patient and report Fred Oliveira [facility] Start: 02-17-2023 End: 02-17-2023 ambulatory Keara Dunham Other [facility] Other Start: 02-17-2023 Telephone encounter Keara Kamara her [facility] Start: 11-14-2022 End: 11-14-2022 ambulatory Fred Oliveira Other [facility] Other Start: 11-14-2022 Telephone encounter Fred HAMILTON [facility] Start: 09-01-2022 End: 09-01-2022 ambulatory Fred Oliveira Other [facility] Other Start: 09-01-2022 Telephone encounter Fred Oliveira [facility] Start: 08-31-2022 Telephone encounter Fred Oliveira [facility] Start: 08-31-2022 End: 09-01-[address] FRED OLIVEIRA [facility] Other Start: 08-30-2022 End: 08-30-2022 ambulatory Fred Oliveira Other [facility] Other Start: 08-30-2022 Office outpatient vi sit 15 minutes Fred Oliveira [facility] Start: 06-03-2022 End: 06-03-2022 ambulatory Fred Oliveira Other [facility] Other Start: 06-03-2022 Office outpatient vi sit 15 minutes Fred Oliveira [facility] Start: 12-27-2021 End: 12-27-2021 ambulatory [facility] Work Phone: Pulmonary Medicine Comment on above: Spirometry Start: 12-27-2021 End: 12-27-2021 Patient encounter procedure Pulm Fct Lab 1 - [facility] Work Phone: [facility] Comment on above: ILD (interstitial rock ng disease) (HCC) (Primary Dx) Start: 11-01-2021 End: 11-02-[address] FRED OLIVEIRA Facility:[facility] Start: 10-27-2021 Encounter for genera l adult medical examination without abnormal findings DR FRED OLIVEIRA [facility] Start: 10-25-2021 End: 10-26-[address] FRED OLIVEIRA Facility:[facility] Start: 10-20-2021 End: 10-21-[address] FRED OLIVEIRA Facility:[facility] Start: 10-20-2021 End: 10-21-2021 Encounter for general adult medical examination without abnormal findings DR FRED OLIVEIRA Facility:[facility] Start: 10-01-2021 Adult health examination Keara Dunham Other [facility] Other Start: 09-06-2021 Refill Toñito Tai MD Work Phone: Pulmonary Medicine Comment on above: Refill Request Start: 12-07-2016 End: 12-08-2016 Ambulatory DEFAULT PHYSICIAN Facility:[facility] Procedures Date Procedure Procedure Detail Performing Clinician [...] 06-19-2013 History and physical examination, administrative Keara Charla Other Depression screening Honorio Dunham Other Screening for malign ant neoplasm of breast Keara Dunham Other Plan of Treatment Date Care Activity Detail Author Start: 01-21-2024 Influenza vaccination [facility] Start: 05-22-2023 Behavioral Health Screening Behavioral Health Screening [facility] Start: 01-20-2023 Influenza vaccination Influenza Vacc ine (#1) [facility] Start: 10-05-2022 End: 01-26-2023 LUNG DIFFUSION CAPACITY (DLCO) LUNG DIFFUSION CAPACITY (DLCO) PFT Routine ILD (interstitial lung disease) (HCC) Expected: 10/05/2022 (Approximate), Expires: 01/26/2023 [facility] Work Phone: Comment on above: Expected: 10/05/2022 (Approximate), Expires: 01/26/2023 Start: 10-05-2022 End: 01-26-2023 SPIROMETRY BASELINE ONLY SPIROMETRY BASELINE ONLY PFT Routine ILD (interstitial lung disease) (HCC) Expected: 10/05/2022 (Approximate), Expires: 01/26/2023 [facility] Work Phone: Comment on above: Expected: 10/05/2022 (Approximate), Expires: 01/26/2023 Start: 05-22-2022 Depression Assessment Depression Ass essment [facility] Start: 2022 RSV Vaccine (1 - 1-d ose 60+ series) RSV Vaccine (1 - 1-dose 60+ series) [facility] Start: 2022 RSV Vaccine (1 - Ris k 60-74 years 1-dose series) RSV Vaccine (1 - Risk 60-74 years 1-dose series) [facility] Center Start: 05-31-2020 DIABETES SCREEN DIABETES SCREEN [facility] Start: 05-31-2020 Diabetes Screening Diabetes Screenin [...] Center Start: [address] COLONOGRAPHY [facility] Start: 2007 FECAL OCCULT BLOOD FECAL OCCULT BLOO D [facility] Start: 2007 Lipid 1996 panel - S montez or Plasma Lipid Screening [facility] Start: 2007 Lipid panel Lipid Screening [facility] Start: 2007 LIPID SCREEN LIPID SCREEN [facility] Start: 2007 Screening for malign ant neoplasm of colon [facility] Start: 2007 SIGMOIDOSCOPY SIGMOIDOSCOPY [facility] Start: 2002 [facility] Start: 1980 Anxiety Screening Anxiety Screening [facility] Start: 1980 Depression Screening Depression Scre ening [facility] Start: 1980 HEPATITIS C SCREENING HEPATITIS C [facility] Start: 1980 Hepatitis C screening Hepatitis C [facility] Start: 1980 HIV SCREENING HIV SCREENING [facility] Start: 1980 HIV screening HIV Screening [facility] Start: 1973 Screening for malign ant neoplasm of cervix Cervical Cancer Screening [facility] SPIROMETRY BASELINE ONLY SPIROME TRY BASELINE ONLY PFT Routine Interstitial pulmonary disease (HCC) 12/27/2021 12:[address] [facility] Work Phone: [facility] Immunizations Immunization Date Immunization Notes Care Provider Sunil petty 03-01-2023 influenza, injectabl e, quadrivalent, preservative free Fred Oliveira Other [employer] [facility] [employer] Other 04-25-2022 influenza virus vaccine, split virus (incl. purified surface antigen) Keara Dunham Other [employer] [facility] [employer] Other 04-27-2021 influenza, injectabl e, quadrivalent, preservative free Toñito Tai MD Work Phone: [facility] 04-27-2021 influenza virus vaccine, unspecified formulation Toñito Tai MD Work Phone: [facility] 02-18-2020 influenza virus vaccine, split virus (incl. purified surface antigen) Keara Dunham Other [facility] Other 02-18-2020 influenza, injectabl e, quadrivalent, preservative free Toñito Tai MD Work Phone: [facility] 05-10-2019 pneumococcal polysaccharide vaccine, 23 valent Keara Dunham Other [facility] Other 03-26-2018 influenza, seasonal, injectable Toñito Tai MD Work Phone: [facility] 03-08-2017 influenza, seasonal, injectable Toñito Tai MD Work Phone: [facility] 03-08-2017 tetanus and diphther ia toxoids, adsorbed, preservative free, for adult use (5 Lf of tetanus toxoid and 2 Lf of diphtheria toxoid) Keara Dunham Other [facility] Other 02-03-2017 pneumococcal polysaccharide vaccine, 23 valent [...] against Streptococcus pneumoniae (pneumococcus)] Keara Dunham Other [facility] Other 03-15-2015 influenza, seasonal, injectable, preservative free Toñito Tai MD Work Phone: [facility] 02-28-2014 diphtheria, tetanus toxoids and acellular pertussis vaccine, unspecified formulation Keara Charla Other [facility] Other Payers Date Payer Category Payer Private Health Insurance [facility] [employer] [id number] 2009-Present [phone] [address] [address] [place] [address] O [id number] 2009 Private Health Insurance [id number] 1962 Unknown [id number] 1962 Unknown [id number] 1962 Unknown [id number] 1962 Unknown [id number] 1959 Unknown [id number] 1959 Unknown [id number] Unknown Social History Date Type Detail Facility Start: 02-02-2017 End: 12-27-2021 Tobacco smoking status NYIS Never smoked tobacco [facility] Work Phone: Start: 12-27-2021 End: 05-15-2023 Sex Assigned At [facility] Other Start: 12-27-2021 End: 10-03-2022 History of Social function [facility] National Score (1-10 0), lower number is lower risk 87 [facility] Start: 08-19-2019 Sexual orientation Heterosexual (finding) [facility] Clinical Notes 02-20-2017 to 04-30-2024 Telephone Encounter - Rusty Araiza - 04/30/2024 11:04 AM ESTTelephone Encounter - Rusty Araiza - 04/30/2024 11:04 AM EST Note Date & Type Note Facility 04-30-2024 Miscellaneous Notes Summary: rx refill Patient contacted pharmacy and requests refills as follows: Requested Prescriptions Pending Prescriptions Disp Refills mycophenolate Mofetil (CELLCEPT) 500 mg tablet 60 tablet 5 Sig: Take 2 tablets by mouth once daily. The last encounter with Toñito Tai MD was 03/24/2024 RX INSTRUCTIONS: Patient aware RX will be sent to pharmacy. No need to notify patient. Patient has been identified by name and date of : Yes Rusty Villareal documented in this encounter [facility] 04-30-2024 Telephone encounter Note Summary: rx refill Patient contacted pharmacy and requests refills as follows: Requested Prescriptions Pending Prescriptions Disp Refills mycophenolate Mofetil (CELLCEPT) 500 mg tablet 60 tablet 5 Sig: Take 2 tablets by mouth once daily. The last encounter with Toñito Tai MD was 03/24/2024 RX INSTRUCTIONS: Patient aware RX will be sent to pharmacy. No need to notify patient. Patient has been identified by name and date of : Yes Rusty Villareal [facility] 04-16-2024 Note [facility] Consult Note 04/16/24 Patient had episodes of wide-complex tachycardia noted and hence subsequently coronary angiography was done on 04/14/2024 this revealed normal coronaries and normal LVEDP with no evidence of aortic stenosis. Last transmission noted is on March 06, 2024 12/05/23 Patient here fmorphology changed or 6 mo follow up PAF and hypertension. [...] limited issues. HPI: Moose Jacinto is a 64 y.o. year old with past medical history [...] PSH: Past Surgical History: Procedure Laterality Date CARDIAC CATHETERIZATION CEREBRAL ANEURYSM REPAIR SH: Social Determinants of Health Tobacco Use: Low Risk (04/16/2024) Patient History Smoking Tobacco Use: Never Smokeless Tobacco Use: Never Passive Exposure: Not on file Alcohol Use: Not on file Financial Resource Strain: Not on file Food Insecurity: Not on file Transportation Needs: Not on file Physical Activity: Not on file Stress: Not on file Social Connections: Not on file Intimate Partner Violence: Unknown (07/13/2023) [place] Safety & Environment Fear of Current or Ex-Partner: Not on file Emotionally Abused: Not on file Physically Abused: Not on file Sexually Abused: Not on file Physically or Sexually Abused: Not on file Depression: Not on file Housing Stability: Not on file Utilities: Not on file Health Literacy: Not on file Allergies: Allergies Allergen Reactions Iodinated Contrast Media Other Weight: 56.7kg Visit Vitals Resp 11 Ht 1.499 m (4' 11 ) Wt 56.7 kg (125 lb) BMI 25.25 kg/m??? OB Status Postmenopausal Smoking Status Never BSA 1.54 m??? Meds: Current Outpatient Medications on File Prior to Visit Medication Sig Dispense Refill amLODIPine (Norvasc) 5 mg tablet Take 1 tablet (5 mg) by mouth once daily as directed. 90 tablet 3 aspirin 81 mg EC tablet Take 81 mg by mouth in the morning. bisoprolol (Zebeta) 5 mg tablet Take 5 mg by mouth in the morning. mycophenolate (Cellcept) 500 mg tablet Take 1,000 mg by mouth in the morning. amLODIPine (Norvasc) 5 mg tablet Take 1 tablet (5 mg) by mouth once daily as directed. (Patient not taking: Reported on 04/16/2024) 90 tablet 3 Current Facility-Administered Medications on File Prior to Visit Medication Dose Route Frequency Provider Last Rate Last Admin [DISCONTINUED] predniSONE (Deltasone) tablet 20 mg 20 mg oral Once Ehsan Benz MD ROS: Review of Systems Constitutional: Positive for [...] nose Oropharynx: no cyanosis, no pallor Neck N (more content not included)... [facility] 03-27-2024 Note [place] [facility] - [facility] Subjective Moose Jacinto is a 64 y.o. year old female patient being seen for SVT, ventricular tachycardia, Hypertension, and Palpitations. 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 Patient states that probably she had a late reaction to IV contrast because she felt sick and she was nauseated and vomiting this weekend after the procedure. She denies any fever or chills or skin rash. Where she had the IV in the left brachial area she has skin rash and itching where the dressing was. No problem at the left wrist She denies recurrence of any palpitation or chest pain or shortness of breath. She denies dizziness. She denies legs edema or discomfort on exertion She states that her blood pressure has been on the high side similar to what we got here. She is not sure of the dosing of her blood pressure medications 03/05/2024 Patient is here today for follow-up visit. [...] mellitus. She states that her mother had AZ at age 70 and her sister had AZ at age 60. ROS All systems were reviewed and they were negative except for the positive findings noted above in the history Past Medical History: Diagnosis Date Aneurysm (CMS/HCC) Hypertension Past Surgical History: Procedure Laterality Date CARDIAC CATHETERIZATION CEREBRAL ANEURYSM REPAIR Family History Problem Relation Name Age of Onset Heart attack Mother Atrial fibrillation Sister Stroke Sister Allergies Allergies Allergen Reactions Iodinated Contrast Media Other Medications Current Outpatient Medications: amLODIPine (Norvasc) 5 mg tablet, Take 1 tablet (5 mg) by mouth once daily as directed. (Patient taking differently: Take 2.5 mg by mouth once daily as directed.), Disp: 90 tablet, Rfl: 3 aspirin 81 mg EC tablet, Take 81 mg by mouth in the morning., Disp: , Rfl: bisoprolol (Zebeta) 5 mg tablet, Take 5 mg by mouth in the morning., Disp: , Rfl: mycophenolate (Cellcept) 500 mg tablet, Take 1,000 mg by mouth in the morning., Disp: , Rfl: Current Facility-Administered Medications: predniSONE (Deltasone) tablet 20 mg, 20 mg, oral, Once, Ehsan Benz MD Objective Visit Vitals BP 145/75 (BP Location: Right wrist, Patient Position: Sitting) Pulse 64 Ht 1.499 m (4' 11 ) Wt 55.8 kg (123 lb) SpO2 99% BMI 24.84 kg/m??? OB Status Postmenopausal Smoking Status Never Assessed BSA 1.52 m??? Physical exam: GENERAL: alert and oriented [...] extremities. PSYCH: appropriate mood, affect, and judgement. SKIN: Skin rash with redness at the left antecubital area where the dressing over the IV was. The left wrist look good without any oozing or swelling or redness. There is a minor bruise. Left radial pulse is +2 Recent Labs Labs 12/04/2023 White blood count 6.6, hemoglobin 10.7, hematocrit 34.3, platelets 204 Creatinine 0.9, GFR above 60, Total bilirubin 0.2, AST 14, ALT 20, alk phos 93, albumin 3.9 Labs from 05/06/2023 sodium 140, potassium 4.9 BUN 14, creatinine 0.97, GFR above 60, glucose 88, calcium 9.4 HbA1c seat 6% Triglyceride 41, (more content not included)... [facility] 2024 Note Patient: Moose linares Procedure Information Date/Time: 03/21/24 1330 Procedure: Coronary angiography - PC APPROVED Location: [facility] 2 BIPLANE / [facility] (Cath) Providers: Ehsan Benz MD Clinical information reviewed: Allergies Meds OB Status Physical Exam Airway Mallampati: II TM distance: >3 FB Neck ROM: full Cardiovascular Rhythm: regular Rate: normal Dental Pulmonary Abdominal Anesthesia Plan ASA 3 (Conscious sedation) Anesthetic plan and risks discussed with patient. Use of blood products discussed with patient who. Plan discussed with attending. Additional Equipment Requests [facility] 03-05-2024 Note [place] Cardiology - [facility] Subjective Moose Jacinto is a 63 y.o. year old female patient being seen for Atrial Fibrillation , Hypertension, and Palpitations Patient Active Problem List Diagnosis Anti-MEDICAL TRANSCRIPTION RADIOLOGY antibodies present ILD (interstitial lung disease) (CMS/HCC) [...] mellitus. She states that her mother had AZ at age 70 and her sister had AZ at age 60. ROS All systems were [...] is not a (more content not included)... [facility] 01-04-2024 Note LOOP IMPLANT PROCEDU RE NOTE DATE OF PROCEDURE: 01/04/24 PERFORMING PHYSICIAN: Dr. Maxwell Marshall CREDIT PORTFOLIO ADVISOR: JOHN INDICATIONS FOR PROCEDURE: 1. SVT/AF surveillance [...] the sternum on the left using the [employer] tool. The loop recorder was then [...] the incision. Maxwell Marshall MD Cardiac Electrophysiology. [facility] 12-05-2023 Note [place] [facility]rophys[facility] Consult Note [...] And Rhythm: regular (more content not included)... [facility] 07-19-2023 Evaluation note Encounter Date Diagnosis Assessment Notes Jun, Solitary pulmonary nodule (ICD-10 - R91.1) PULMONARY NODULE [facility] Other 01-16-2024 NoteTelephone call for follow up BP and [...] palpitations. All other systems reviewed and are negative.[facility] 06-06-2023 NoteUT Electrophysiology Consult Note Reason for visit: new pt, hx afib Date of Telehealth Visit: 06/06/23 The patient was notified that using 3rd constitution party telecommunication application (e.g., Cuídate) is not HIPPA compliant and may carry some privacy risks. Yes The visit was conducted [id number] with the use of audio and video technology Jackeline. between patient and provider for a virtual [...] Diagnostic Imaging: No i (more content not included)...[facility]12-19-2023 NoteUT Electrophysiology Consult Note Reason for visit: [...] angiogram: @CATH@ Diagnostic Im (more content not included)...[facility] 05-09-2023 NotePatient here for follow up echo and event monitor. Says PCP doubled her lisinopril last week for hypertension. Review of Systems Constitutional: Positive for malaise/fatigue. Cardiovascular: Positive for dyspnea on exertion (with episodes of palpitations) and palpitations. Neurological: Positive for light-headedness (with episodes of palpitations). All other systems reviewed and are negative.[facility] 05-01-2023 Evaluation note* Encounter Date Diagnosis [...] patient has been prescribed ASA thearpy by [facility] while awaiting her holter monitor results. They are maintaining regular scheduled appts with their dermatology teacher. CHADs VASc score 2 (gender, HTN) - initiated on ASA therapy [facility] Other 11-13-2023 Evaluation note* Encounter Date Diagnosis Assessment Notes Treatment Notes Treatment Clinical Notes Mar, Primary hypertension (ICD-10 - I10) Mar, Systemic sclerosis with lung involvement (ICD-10 - M34.81) [facility] Other 11-13-2023 Evaluation note* Encounter Date Diagnosis Assessment Notes Treatment Notes Treatment Clinical Notes Mar, Primary hypertension (ICD-10 - I10) [facility] Other 11-10-2023 Evaluation note* Encounter Date Diagnosis [...] hydrate and begin DINA. Use w/ spacer. [facility] Other 04-12-2023 Evaluation note* Encounter Date Diagnosis Assessment Notes Treatment Notes Treatment Clinical Notes Aug, Dysuria (ICD-10 - R30.0) [facility] Other 04-12-2023 Evaluation note* Encounter Date Diagnosis Assessment Notes Treatment Notes Treatment Clinical Notes 12 Aug, 2022 Pyuria (ICD-10 - R82.81) [facility] Other 04-11-2023 Evaluation note* Encounter Date Diagnosis [...] Aug, Impaired fasting glucose (ICD-10 - R73.01) [facility] Other 01-13-2023 Evaluation note* Encounter Date Diagnosis [...] of SOB or chest pain May, Other terminal operator (current) drug therapy (ICD-10 - Z79.899) [facility] Other 08-08-2022 NoteHNO ID: [id number] Author: Toñito Tai MD Service: ? Author Type: Physician Type: Progress Notes Filed: 12/27/2021 1:08 PM Note Text: Respiratory Dalton Moose Jacinto is a 61 year old [...] Toñito Tai MD December 27, 2021 1:07 [facility] NoteHNO ID: [id number] Author: Lizette Roldan, LEXIE Service: ? Author Type: Registered Resp Therapist Type: Progress Notes Filed: 12/27/2021 12:30 PM Note Text: PULM FUNCTION SMARTBLOCK: Provider: Toñito Tai MD Spirometry: 1 DLCO: 1C[facility]08-[facility] Instructions* Patient Instructions* Toñito Tai MD - 12/27/2021 1:04 PM EDT - continue mycophenolate 2 tablets daily - return in 9 months with breathing tests [facility] History of Present illness Narrative* Toñito Tai MD - 12/27/2021 12:38 PM EDT Images from the original note were not included. Respiratory Dalton Moose Jacinto is a 61 year old [...] Center08-08-2022 History of Present illness Narrative* Lizette Roldan, DENTAL LAB TECHNICIAN - 12/27/2021 12:29 PM EDT PULM FUNCTION SMARTBLOCK: Provider: Toñito Tia MD Spirometry: 1 DLCO: 1 documented in this encounterSum[facility]12-16-2021 NoteHNO ID: [id number] Author: Toñito Tai MD Service: ? Author Type: Physician Type: Progress Notes Filed: 05/07/2021 7:09 AM Note Text: Respiratory Dalton Moose Jacinto is a 61 year old [...] not in our system (done locally in [place]); She wasn't informed of any abnormalities in [...] None Other records ASSESSMENT Systemic sclerosis (U3 MEDICAL TRANSCRIPTION RADIOLOGY antibody positive) ILD (NSIP) GERD Arthralgias Essential HTN 61F (more content not included)...[facility]12-16-2021 NoteHNO ID: [id number] Author: RT Venita(R) Service: ? Author Type: Dispatcher Maintenance Type: Progress Notes Filed: 05/06/2021 12:07 PM [...] BY: RT Venita(R) May 06, 2021 12:07 [place]12-16-2021 NoteHNO ID: [id number] Author: Bull Veliz RRT Service: ? Author Type: Registered Resp Therapist Type: Progress Notes Filed: 05/06/2021 11:53 AM Note Text: PULM FUNCTION SMARTBLOCK: Provider: Toñito Tai MD Assisting Tech: Julia Ewing RRT Spirometry: 1 DLCO: 1 System: [id number] NoteProcedure (PULLMN) MOOSE JACINTO ([id number]) 1960 F Date Time Provider Department 05/06/21 11:15 AM PULM FCT LAB MAIN 4 PULLMN During your visit today, we recorded the following information about you: Bull Veliz RRT 05/06/2021 11:53 AM Signed PULM FUNCTION SMARTBLOCK: Provider: Toñito Tai MD Assisting Tech: Julia Ewing RRT Spirometry: 1 DLCO: 1 System: [id number] Referring Provider: TOÑITO GERMAN [[id number]] Allergies As of Date: 05/06/2021 Noted Allergy Reaction AMOXICILLIN 02/02/2017 14 - Other: See Comments Comments: Causes patient to be severely cold IODINE 10/08/2012 16 - Unknown SULFA (SULFONAMIDE ANTIBIOTICS) 03/01/2013 16 - Unknown Date Reviewed: 05/04/2020 Reviewed by: Kacie Stokes - Fully Assessed Reason for Visit: Spirometry [191] Primary Visit Diagnosis:ILD (interstitial lung disease) ([facility]) [J84.9] Order(s):SPIROMETRY BASELINE ONLY [[id number]] Order #: [id number]. #:[id number]: 1 Prescriptions as of 05/06/2021 - mycophenolate [...] (HCC) [M34.9] 02/20/2017 NSIP (nonspecific interstitial pneumonia) ([facility])*02/20/2017 08/19/2019 Anti-MEDICAL TRANSCRIPTION RADIOLOGY antibodies present [R76.8] 02/20/2017 Positive antinuclear antibody [R76.8] 02/20/2017 ILD (interstitial lung disease) ([facility]) [J84.9] 06/02/2017 Pain of both shoulder joints [M25.511, M25.512] 06/02/2017 Encounter Status:Closed by BULL VELIZ on 05/06/21[facility] 05-06-[facility]21 NoteProcedure (PULLMN) MOOSE JACINTO ([id number]) 1960 F Date Time Provider Department 05/06/21 11:00 AM PULM FCT LAB MAIN 4 PULLMN During your visit today, we recorded the following information about you: Referring Provider: TOÑITO GERMAN [[id number]] Allergies As of Date: 05/06/2021 Noted Allergy Reaction AMOXICILLIN 02/02/2017 14 - Other: See Comments Comments: Causes patient to be severely cold IODINE 10/08/2012 16 - Unknown SULFA (SULFONAMIDE ANTIBIOTICS) 03/01/2013 16 - Unknown Date Reviewed: 05/04/2020 Reviewed by: Kacie Stokes - Fully Assessed Reason for Visit: Spirometry [191] Primary Visit Diagnosis:ILD (interstitial lung disease) ([facility]) [J84.9] Order(s):LUNG DIFFUSION CAPACITY (DLCO) [[id number]] Order #: [id number]. #:[id number]: 1 Prescriptions as of 05/06/2021 - mycophenolate [...] As Of Date 05/06/2021 Noted Resolved Scleroderma ([facility]) [M34.9] 02/20/2017 NSIP (nonspecific interstitial pneumonia) ([facility])*02/20/2017 08/19/2019 Anti-MEDICAL TRANSCRIPTION RADIOLOGY antibodies present [R76.8] 02/20/2017 Positive antinuclear antibody [R76.8] 02/20/2017 ILD (interstitial lung disease) ([facility]) [J84.9] 06/02/2017 Pain of both shoulder joints [M25.511, M25.512] 06/02/2017 Encounter Status:Closed by BULL VELIZ on 05/06/21[facility] 02-20-2017 History of Past illness Narrative* Problem Noted Date Resolved Date NSIP (nonspecific interstitial pneumonia) 201608/19/2019 documented as of this encounter (statuses as of 09/06/2021) [facility]10-[facility] [...] of this encounter (statuses as of 03/28/2023) [facility] Diagnosis Interstitial pulmonary disease (HCC) Postinflammatory pulmonary fibrosis documented in this encounter [facility] note* Diagnosis ILD (interstitial lung disease) (HCC)- Primary Postinflammatory pulmonary fibrosis documented in this encounter [facility] note* Diagnosis Interstitial pulmonary disease (HCC)- Primary Postinflammatory pulmonary fibrosis documented in this encounter [facility] noteNo InformationNortCommunity Health Systems [employer] Other Hisannr general Narrative - Reported* Type Description Date [...] repair Surgical History EGD Surgical History colonoscopy [facility] [employer] Other history general Narrative - Reported* Type Description Date [...] History colonoscopy Hospitalization History see surgical history [facility] Other History general Narrative - Reported* Type [...] colonoscopy 2020 Hospitalization History see surgical history [facility] Other Reason for referral (narrative)* Outpatient Procedure (Routine) - Authorized Specialty Diagnoses / Procedures Referred By Ligia reeder Referred To [facility] Diagnoses ILD (interstitial lung disease) (HCC) Procedures LUNG DIFFUSION CAPACITY (DLCO) DIFFUSING CAPACITY Toñito German MD [address] [place] [address] Respiratory [id number] [place] [address] Referral ID Status Reason Start Date Expiration Date Visits Requested Visits Authorized [id number] Authorized Auto-Generat ed Referral 10/05/2022 01/26/2023 1 1 * Outpatient Procedure (Routine) - Authorized Specialty Diagnoses / Procedures Referred By Ligia reeder Referred To [facility] [place] Diagnoses ILD (interstitial lung disease) (HCC) Procedures SPIROMETRY BASELINE ONLY SPMTRY W/VC EXPIRATORY ЕКАТЕРИНА W/WO MXML VOL VNTJ Toñito German MD [address] [place], [place] [id number] [place] [id number] [place] [address] Referral ID Status Reason Start Date Expiration Date Visits Requested Visits Authorized [id number] Authorized Auto-Generat ed Referral 10/05/2022 01/26/2023 1 [...] section and content) DATE CREATED AUTHOR 11/15/[address] [facility] DATE CREATED AUTHOR AUTHOR'S ORGANIZ ATION 07/08/2021 [facility] DATE CREATED AUTHOR AUTHOR'S ORGANIZ ATION 12/27/2021 [facility] DATE CREATED AUTHOR AUTHOR'S ORGANIZ ATION 09/06/2022 [facility] DATE CREATED AUTHOR AUTHOR'S ORGANIZ ATION 05/05/2024 [facility] Source Comments (unrecognize d section and [...] WO BRONCHODILATOR Toñito German MD [address] [place] [address] Respiratory [place] [address] [place] [address] Referral ID Status Reason Start Date Expiration Date V isits Requested Visits Authorized [id number] Closed Auto-Generate d Referral 08/04/2021 06/05/2022 1 1 Reason Comments Recheck Specialty Diagnoses / Procedures Referred By Contac t Referred To Contact Pulmonary Disease / PULMONARY MEDICINE Diagnoses ILD Procedures OFFICE/OUTPATIENT ESTABLISHED MOD MDM 30-39 MIN RI EST ILD Self, Toñito Sanders MD [address] [place] [address] Referral ID Status Reason Start Date Expiration Date Visits Re quested Visits Authorized [id number] Closed 05/22/2021 05/21/2022 1 1 Specialty Diagnoses / Procedures Referred By Contac t Referred To Contact [facility] Diagnoses Interstitial pulmonary disease (HCC) Procedures LUNG DIFFUSION CAPACITY (DLCO) DIFFUSING CAPACITY Toñito German MD [address] [place] [address] Respiratory [place] [address] [place] [address] Referral ID Status Reason Start Date Expiration Date V isits Requested Visits Authorized [id number] Closed Auto-Generate d Referral 08/04/2021 06/05/2022 1 1 Reason Comments Refill Request Reason Onset Date Comments Refill Request 04/30/2024 Care Teams (unrecognized sec tion and content) [employer] Supervisor Relationship Specialty Start Date End Date Fred Oliveira DO PCP - General Internal Medicine 02/28/13 Nikita Cain Rheumatology 01/09/17 [employer] Supervisor Relationship Specialty Start Date End Date Fred Oliveira DO PCP - General Internal Medicine 02/28/13 Nikita Cain Rheumatology 01/09/17 [employer] Supervisor Relationship Specialty Start Date End Date Fred Oliveira DO PCP - General Internal Medicine 02/28/13 Nikita Cain Rheumatology 01/09/17 [employer] Supervisor Relationship Specialty Start Date End Date Fred Oliveira DO PCP - General Internal Medicine 02/28/13 Nikita Cain Rheumatology 01/09/17 [employer] Supervisor Relationship Specialty Start Date End Date Fred Oliveira DO PCP - General Internal Medicine 02/28/13 Nikita Cain Rheumatology 01/09/17 [employer] Supervisor Relationship Specialty Start Date End Date Fred Oliveira DO PCP - General Internal Medicine 02/28/13 Nikita Cain Rheumatology 01/09/17 [employer] Supervisor Relationship Specialty Start Date End Date Fred [...] BE BASED ON THE PRIMARY CLINICAL RECORDS. [employer] provides no warranty or guarantee of the accuracy or completeness of information in this document.
[2024-05-23 11:56] LABS: Anion Gap 11.3; Calcium 8.9 mg/dL (8.5-10.1); Carbon Dioxide 29.6 mmol/L (21.0-32.0); Chloride 101 mmol/L (98-107); Estimated GFR (African America >60 (>=60 mL/min/1.73m^2); Estimated GFR (Non-African Ame >60 (>=60 mL/min/1.73m^2); Glucose 93 mg/dL (74-106); Potassium 3.9 mmol/L (3.5-5.1); Sodium 138 mmol/L (136-145)
[2024-05-23 12:08] LABS: Basophils Absolute Auto 0.1 10^3/uL (0.0-0.1); Basophils Percent Auto 0.7 % (0.2-2.0); Eosinophils Absolute Auto 0.1 10^3/uL (0.0-0.7); Eosinophils Percent Auto 0.7 % (0.9-7.0); Hematocrit 33.3 % (36.0-48.0); Hemoglobin 10.5 g/dL (12.0-16.0); Immature Granulocytes Abs Auto 0.01 10^3/uL (0.00-0.03); Immature Granulocytes Pct Auto 0.1 % (0.0-0.5); Lymphocytes Absolute Auto 2.1 10^3/uL (1.2-3.8); Lymphocytes Percent Auto 28.2 % (20.5-60.0); Mean Corpuscular HGB Conc 31.5 g/dL (29.9-35.2); Mean Corpuscular Hemoglobin 26.6 pg (26.7-34.0); Mean Corpuscular Volume 84.3 fL (81.0-99.0); Mean Platelet Volume 10.4 fL (9.5-13.5); Monocytes Absolute Auto 0.7 10^3/uL (0.3-0.8); Monocytes Percent Auto 9.9 % (1.7-12.0); Neutrophils Absolute Auto 4.5 10^3/uL (1.4-6.5); Neutrophils Percent Auto 60.4 % (43.0-75.0); Platelet Count 261 10^3/uL (150-450); Red Blood Count 3.95 10^6/uL (4.20-5.40); Red Cell Distribution Width 14.1 % (11.0-15.0); White Blood Count 7.4 10^3/uL (4.0-11.0)
== END 2024-05-23 11:24 | disposition home or self-care (01) ==
LOC: LAB 11:25
PROVIDERS: PCP Internal Medicine; Visit Provider Internal Medicine Cardiovascular Disease
DX: R00.0 Tachycardia, unspecified (principal)
CPT/HCPCS: 36415; 80048; 85025

== ENCOUNTER 2024-05-30 12:36 | Outpatient (OUT) | payer OTHER, SELFPAY ==
--- NOTE | 2024-05-30 12:55 | XR_ITS ---
The [address] [address] Patient Name: ISABELA JACINTO MRN: [id number] date: 1960 Sex: F Assigned Patient Location: [facility] Current Patient Location: [facility] Accession/Order Number: [id number] Exam Date: 05/30/2024 12:48 Report Date: 05/30/2024 13:15 At the request of: KELL ANN Procedure: XR chest 2V EXAM: XR chest 2V HISTORY: wide complex tachycardia R00.0 COMPARISON: 04/04/2023 TECHNIQUE: Upright PA and lateral chest x-ray FINDINGS: The heart is not enlarged and the vasculature is not distended. Chronic changes are again seen throughout the lungs, greater at the lung bases, and these remain unchanged. No acute infiltrate, effusion or pneumothorax is identified. There is been interval placement of the left-sided pacemaker. Scoliosis spine is noted. XR/XR chest 2V IMPRESSION: Some chronic changes are noted with interval placement of a left-sided pacemaker. There is no evidence of a focal infiltrate, pneumothorax or complicating process. There is no evidence of cardiac decompensation. Electronically authenticated by: ALLIE TRAN Date: 05/30/2024 13:15
== END 2024-05-30 12:37 | disposition home or self-care (01) ==
LOC: RAD 12:39
PROVIDERS: PCP Internal Medicine; Visit Provider Internal Medicine Cardiovascular Disease
DX: R00.0 Tachycardia, unspecified (principal); Z95.0 Presence of cardiac pacemaker
CPT/HCPCS: 71046

== ENCOUNTER 2024-05-31 13:31 | Outpatient (OUT) | payer OTHER, SELFPAY ==
--- NOTE | 2024-05-31 13:36 | US_ITS ---
Patient Name: ISABELA JACINTO MR#: [id number] : 1960 Exam Date: 05/31/2024 Ordering Doctor: DR Ivana Beltrán M.D. RADIOLOGY REPORT PROCEDURE: MM TOMOSYNTHESIS DIAGNOSTIC RT, 05/31/2024, 13:41 US BREAST RT LIMITED, 05/31/2024, 14:01 COMPARISON: MM TOMOSYNTHESIS SCREENING BI, 11/27/2023. MM TOMOSYNTHESIS SCREENING BI, 11/10/2022. INDICATIONS: Right Breast Mass Calculator Name NCI Breast Cancer Risk Assessment Tool 5 Year Breast Cancer Risk 1.20% Lifetime Breast Cancer Risk 5.00% Personal Breast Cancer No Personal Ovarian Cancer No Treatments None Family Cancers Father with colon cancer at age ~71. LOCATION: [facility] BREAST COMPOSITION: The breasts are extremely dense, which lowers the sensitivity of mammography. FINDINGS: DIAGNOSTIC CATEGORY 5--HIGHLY SUGGESTIVE OF MALIGNANCY. HIGH PROBABILITY OF MALIGNANCY BASED ON THE FOLLOWING: RIGHT BREAST: New lobular 2.7 cm mass within posterior upper inner quadrant. Ultrasound evaluation demonstrates a geographic shaped hypoechoic heterogeneous mass at the 1 o'clock position 8.2 cm from the nipple, 2.5 x 1.0 x 1.4 cm in size, most compatible with neoplasm. RECOMMENDATIONS: ULTRASOUND-GUIDED CORE BIOPSY: RIGHT BREAST PLEASE NOTE: A NORMAL MAMMOGRAM DOES NOT EXCLUDE THE POSSIBILITY OF BREAST CANCER. A CLINICALLY SUSPICIOUS PALPABLE LUMP SHOULD BE BIOPSIED. Dictated by: Kd Julio M.D. on 05/31/2024 at 14:22 Approved by: Kd Julio M.D. on 05/31/2024 at 14:29
== END 2024-05-31 13:32 | disposition home or self-care (01) ==
LOC: MAMMO 13:31
PROVIDERS: PCP Internal Medicine; Visit Provider Family Medicine
DX: N63.12 Unspecified lump in the right breast, upper inner quadrant (principal); Z80.0 Family history of malignant neoplasm of digestive organs
CPT/HCPCS: 76642; 77065; G0279